=== PATIENT | male | born 1960 | race Caucasian/White ===

== ENCOUNTER 2023-09-21 12:08 | Emergency (ER) | payer OTHER ==
--- OUTSIDE RECORDS SUMMARY | 2023-09-21 12:11 | XMS REPORT | Continuity of Care Document ---
Author Name Unknown Address [address] [facility]. [address] [place] [address] [facility] thconnect Address [address] [facility] [address] [place] [address] Care Team Providers Care Hebrew Teacher Name Role Phone PCP, PATIENT DOES NOT HAVE A Primary Care Physic loida Unavailable LISA MARTINEZ Attending Clinician Unavailable Lisa Martinez NP Attending Clinician Doctor Unassigned, [place] Attending Clinician U Laurie Clark MD Attending Clinician [phone] LAURIE MANN Attending Clinician Unavailable LISA MARTINEZ Admitting Clinician Unavailable LAURIE MANN Admitting Clinician Unavailable Payers Payer Name Policy Type Policy Number Effective Date Expirati on Date Source [employer] [id number] 2022 00:00:00 Allergies, Adverse Reactions, Alerts Allergy Name Allergy Type Status Severity Reaction(s) Onset Date Inactive Date Treating Clinician Comments Source NO KNOWN ALLERGIE S Drug Class Active [facility] Social History Social Habit Start Date Stop Date Quantity Comments Source Gender identity [facility] Sexual orientation U [facility] Sex Assigned At 1960 00:00:00 1960 00:00:00 [facility] Smoking Status Start Date Stop Date Source Tobacco smoking consumption unknown [facility] Medications Ordered Medication Name Filled Medication Name Start Date Stop Date Current Medication? Ordering Clinician Indication Dosage Frequency Signature (SIG) Comments Components Source doxycycline hyclate 100 mg capsule 2023-0 9-30 00:00: 00 Yes [id number] 100mg Take 1 capsule by mouth in the morning and 1 capsule in the evening. [facility] ipratropium -albuteroL (DUONEB) 0.5 mg-3 mg(2.5 mg base)/3 mL nebulizer solution 3 mL 05-26 13:00: 00 Yes 3mL 3 mL, Inhalation , QID, First dose on Wed05/26/23 at 0800, Until Discontinu ed, Routine [facility] levoFLOXaci n (LEVAQUIN) tablet 750 mg 05-26 11:45: 00 05-26 10:49 :00 No 750mg 750 mg, Oral, ONCE NOW, 1 dose, On Wed05/26/23 at 0645, RUPERTO
Re ason for Anti-Infec tive: Documented Infection< br>Documen ange Infection Site: Respirator y
Durat ion of Therapy: Other (see Comments) [facility] iopamidol (ISOVUE 370-500 mL) injection 100 mL 05-26 11:00: 00 05-26 11:00 :00 No [id number] 100mL 100 mL, Intravenou s, ONCE, 1 dose, On Wed05/26/23 at 0600, Routine [facility] fluticasone propion-gurdeep meteroL (ADVAIR DISKUS) 250-50 mcg/dose inhalation disk 05-26 00:00: 00 Yes [id number] 1{puff} Inhale 1 Puff in the morning and 1 Puff in the evening. [facility] levoFLOXaci n (LEVAQUIN) 750 mg tablet 05-26 00:00: 00 Yes [id number] 750mg Take 1 tablet by mouth every 24 (twenty-fo ur) hours. [facility] fluticasone propion-gurdeep meteroL (ADVAIR DISKUS) 250-50 mcg/dose inhalation disk 05-26 00:00: 00 Yes [id number] 1{puff} Inhale 1 Puff in the morning and 1 Puff in the evening. [facility] fluticasone propion-gurdeep meteroL (ADVAIR DISKUS) 250-50 mcg/dose inhalation disk 05-26 00:00: 00 Yes [id number] 1{puff} Inhale 1 Puff in the morning and 1 Puff in the evening. [facility] levoFLOXaci n (LEVAQUIN) 750 mg tablet 05-26 00:00: 00 07-10 00:00 :00 No [id number] 750mg Take 1 tablet by mouth every 24 (twenty-fo ur) hours. [facility] levoFLOXaci n (LEVAQUIN) 750 mg tablet 05-26 00:00: 00 07-10 00:00 :00 No [id number] 750mg Take 1 tablet by mouth every 24 (twenty- ur) hours. [facility] albuterol 90 mcg/actuati on inhaler 05-21 00:00: 00 Yes INHALE 1 PUFF BY MOUTH FOUR TIMES A DAY NEEDED FOR BREATHING [facility] Vital Signs Vital Name Observation Time Observation Value Comments S ource Systolic blood pressure 2023-07-11 02:45:32 154 mm[Hg] [facility] Diastolic blood pressure 2023-07-11 02:45:32 87 mm[Hg] [facility] Heart rate 2023-07-11 02:45:32 66 /min [facility] Respiratory rate 2023-07-11 02:45:32 16 /min [facility] Oxygen saturation in Arterial blood by Pulse oximetry 2023-07-11 02:45:32 98 /min [facility] Body temperature 2023-07-11 00:34:00 36.72 Lawanda [facility] Body height 2023-07-11 00:34:00 180.3 cm [facility] Body weight 2023-07-11 00:34:00 87.544 kg [facility] BMI 2023-07-11 00:34:00 26.92 kg/m2 [facility] Systolic blood pressure 2023-05-26 10:00:00 130 mm[Hg] [facility] Diastolic blood pressure 2023-05-26 10:00:00 90 mm[Hg] [facility] Heart rate 2023-05-26 10:00:00 91 /min [facility] Respiratory rate 2023-05-26 10:00:00 23 /min [facility] Oxygen saturation in Arterial blood by Pulse oximetry 2023-05-26 10:00:00 94 /min [facility] Body temperature 2023-05-26 07:11:00 37.33 Lawanda [facility] Body height 2023-05-26 07:11:00 180.3 cm [facility] Body weight 2023-05-26 07:11:00 85.276 kg [facility] BMI 2023-05-26 07:11:00 26.22 kg/m2 [facility] Procedures Procedure Date / Time Performed Performing Clinicia n Source XR CHEST 1 VW 2023-07-11 01:11:47 Lisa Martinez [facility] ASSIGNMENT OF BENEFITS 2023-07-11 00:51:27 Docto r Unassigned, [place] [facility] CONSENT/REFUSAL FOR DIAGNOSIS AND TREATMENT 2023-07-11 00:23:57 Doctor Unassigned, [place] [facility] TROPONIN I 2023-05-26 07:42:00 Laurie Mann [facility] BASIC METABOLIC PANEL (NA, K, CL, CO2, GLUCOSE, BUN, CREATININE, CA) 2023-05-26 07:42:00 Laurie Mann [facility] D-DIMER 2023-05-26 07:42:00 Laurie Mann [facility] N-TERMINAL PRO-BNP 2023-05-26 07:42:00 Laurie Mann [facility] COVID-19 (ID NOW RAPID TESTING) 2023-05-26 07:42:00 Laurie Mann [facility] NOTICE OF PRIVACY PRACTICES 2023-05-26 07:11:11 Doctor Unassigned, [place] [facility] CONSENT/REFUSAL FOR DIAGNOSIS AND TREATMENT 2023-05-26 07:10:40 Doctor Unassigned, [place] [facility] Encounters Start Date/Time End Date/Time Encounter Type Admission Type Attending [facility] Care Facility Care Department Encounter ID Source 2023-07-10 19:36:00 2023-07-10 22:01:00 Emergency LISA SCHAEFER [facility] ERT [id number] [facility] 2023-07-10 19:36:00 2023-07-10 22:01:00 Emergency Lisa Martinez [facility] [id number] 4.2.7.2.686 [id number] [facility] 2023-07-10 00:00:00 2023-07-10 00:00:00 Orders Only Doctor Unassigned, [place] [facility] [id number] 350.1.13.10 4.2.7.2.686 [id number] [facility] 2023-05-26 02:14:00 2023-05-26 06:07:00 Emergency Laurie Mann [facility] 1.2.840.114 350.1.13.10 4.2.7.2.686 [id number] [facility] 2023-05-26 02:14:00 2023-05-26 06:07:00 Emergency X LAURIE MANN [facility] ERT [id number] [facility] Results Test Description Test Time Test Comments Results Result Co mments Source [facility] [id number] 08:30:03* Test Item Value Reference Range Interpretation Comme nts NT-proBNP (test code = 17377-7) <=125 Lab Interpretation (test cod e = 19190-9) Normal [facility] [id number] 08:17:34* Test Item Value Reference Range Interpretation Comme nts TROPONIN I (test code = 2574850428) 0.002 ng/mL <=0.034 CYRIL (test code = CYRIL) Reference (Normal) Range (defined by the 99th percentile reference limit): <= 0.034 ng/mL Note: Cardiac troponin begins to rise 3-4 hours after the onset of ischemia. Repeat in 4-6 hours if the sample was drawn within 3-4 hours of the onset of the symptom and found normal. Diagnosis of myocardial injury is made with acute changes in cTn concentrations with at least one serial sample above the 99th percentile upper reference limit (URL), taken together with the patient's clinical presentation. Biotin has been reported to cause a negative bias, interpret results relative to patient's use of biotin. Lab Interpretation (test code = 79897-1) Normal [facility][id number] 08:04:10* Test Item Value Reference Range Interpretation Comments D-DIMER (test code = 9006398329) 0.45 See_Comment H [Automated message] The system which generated this result transmitted reference range: <0.41 ?g/mL (FEU). The reference range was not used to interpret this result as normal/abnormal. CYRIL (test code = CYRIL) This test may be used in conjunction with a clinical pretest probability (PTP) assessment model to exclude venous thromboembolism (VTE) in patients suspected of deep venous thrombosis (DVT) and pulmonary embolism (PE) A D-Dimer value less than 0.50 ?g/ml (FEU) has a negative predicative value of 96 to 100% (95% CI)and 97 to 100% (95% CI) as an aid in the diagnosis of deep vein thrombosis (DVT) and pulmonary embolism when there is low or moderate pretest probability of PE or DVT. D-Dimer values are expressed in initial fibrinogen equivalent units (FEU)" The assay results should be used with other information, including the clinical context, in forming a diagnosis. Lab Interpretation (test code = 41648-6) Abnormal [facility] Notes Date/Time Note Provider Source 2023-05-26 06:06:02 [id number]:06:02F ormatting of this note might be different from the original.Pt given printed and verbal discharge instructions regarding left upper lobe pneumonia, sob, encouraged hydration,Prescriptions provided: Levaquin, Advair discDiscussed ibuprofen and to take with food to avoid GI distress.Discussed antibiotic therapy and to take until all completed unless adverse reaction occurs - if occurs, discontinue medication and follow up with pcp/seek medical attentionPt verbalized understanding of instructions, pt awake alert oriented, resp reg unlabored, skin w/d, color appropriate for race, moves all ext well,pt encouraged to follow up with pcp.Advised to seek medical attention for new/prolonged/worsening of symptoms,Symptoms improvedNo adverse reaction to meds given in ER noted upon dischargePIV d'cd, dressing to site, catheter in tact.Awake, alert oriented, resp reg unlabored, skin w/d, pt leaving amb with steady gait, in no apparent distress, [address]-8W[address] YsbjFR1501-58-11V57:07:15[facility] NoteTXT1.2.840.467624.1.13.104.2.7 .2.120180|[id number] for patient [id number] A. Campbell RN[address] [id number] 04PENVBVYDNFXCLCAPSMHZWC3527-80-96 T06:07:151.2.840.039771.1.72.3.15| 1.2.840.538110.1.13.104.2.7.2.7278 [id number] Erin Stephens RN [facility] 2023-05-26 03:53:55 0423-75-31X78:53:55F ormatting of this note might be different from the original.Notifed María [place] [address]-5Evumxlwbv[address] CgnqJO2761-32-34T95:54:23[facility] NoteTXT1.2.840.754637.1.13.104.2.7 .2.154521|[id number] for patient jjzg37346-4RcwxWZNANQOFVO[id number] 87URHLUXVSVRBYSXIHVQXLYA2065-65-75 T03:54:231.2.840.831918.1.72.3.15| 1.2.840.763663.1.13.104.2.7.2.7278 [id number] [facility] 2023-05-26 02:11:00 5267-73-80N03:11:00F ormatting of this note might be different from the original.Patient came in with complaints of wheezing and SOB since 3-4 days now. [facility] just given a breathing treatment. Patient said he had 3-4 puffs of his Albuterol inhaler VICE CHAIR but no relief. 40779-3Lcvntwoqc department Triage dfwnNA9264-47-57V93:23:22Emeprovidence [facility] department Triage noteTXT1.2.840.705191.1.13.104.2.7 .2.537903|[id number] for patient soen07159-7Ivbwqyrld department Note[address] Hk[id number] 46LLGIAXHGBBSLBNPAZKHVVZ7520-49-62 T02:23:221.2.840.710451.1.72.3.15| 1.2.840.206285.1.13.104.2.7.2.7278 [id number] [facility] 2023-05-26 02:10:00 7297-58-58D75:10:00F ormatting of this note is different from the original.[facility] Emergency Department NotePatient Name: Anthony Aranda of : 1960 62 year old maleTreatment Room: NV6/AZ4Enibuvg Record Number: [id number] Care Physician: PATIENT DOES NOT HAVE A PCPPatient Escorted by: Self [9]Mode of Arrival: Personal means [1]EMS Treatment Prior to ED Arrival:VICE CHAIR treatment: Other (comment) VICE CHAIR treatment comments: Albuteral 4 puffsTravel and Exposure Screening:SymptomsDoes patient have any of these symptoms?: (not recorded)Exposure ScreeningHas patient had contact with someone with a communicable disease in the last month?: (not recorded)Diseases exposed to:: (not recorded)Is Patient ?: (not recorded)Exposure Date: (not recorded)Chief Complaint:Chief Complaint Patient presents with WHEEZING Shortness of Breath History of Present Illness:Anthony Banuelos is a 62 year old male who presents to the ED for evaluation of URI symptoms X 5 days,Symptoms consist f cough wheezing SOB . No fever or chills. Cough is productive of light green phlegm. Pt smokes 1PPD. No sick contacts.Has myalgia and arthralgia. No prolonged immobilization. No calf pain/ Has used Albuterol inhaler. Home COVID test yesterday was negative. Pt was also seen at [facility] ago and was given an Albuterol inhalerHistory provided by: PatientLanguage mill tender used: No Shortness of BreathSeverity: ModerateOnset quality: GradualDuration: 5 daysTiming: SporadicChronicity: RecurrentContext: URI Context: not activity, not animal exposure, not emotional upset, not fumes, not known allergens, not occupational exposure, not pollens, not smoke exposure, not strong odors and not weather changes Relieved by: InhalerWorsened by: ActivityIneffective treatments: None triedAssociated symptoms: cough and wheezing Associated symptoms: no abdominal pain, no chest pain, no claudication, no diaphoresis, no ear pain, no fever and no headaches Risk factors: tobacco use Risk factors: no family hx of DVT, no hx of cancer, no hx of PE/DVT, no obesity, no prolonged immobilization and no recent surgery Past Medical History/Immunizations:Obstructive Sleep pneaAsthmaBronchitisLung nodules "three black spots" Tetanus received in last 5 years: Unknown Allergies:No Known AllergiesPast Social History:Substance & Sexual Activity No substance use or sexual activity history on file. Past Surgical History:No past surgical history on file.Review of Systems: Review of Systems Constitutional: Negative. Negative for diaphoresis and fever. HENT: Negative. Negative for ear pain. Eyes: Negative. Respiratory: Positive for cough, shortness of breath and wheezing. Breasts: Negative. Cardiovascular: Negative. Negative for chest pain and claudication. Gastrointestinal: Negative. Negative for abdominal pain. Genitourinary: Negative. Musculoskeletal: Negative. Skin: Negative. Neurological: Negative. Negative for headaches. Psychiatric/Behavioral: Negative. All other systems reviewed and are negative.Endocrine: Endocrine negativePhysical Exam: ED Triage Vitals [05/26/23 0211] Weight 85.3 kg (188 lb) Actual or estimated Estimated by patient/family report Height 1.803 m (5' 11") BP (!) 146/90 Pulse 106 Resp 16 Temp 37.3 ?C (99.2 ?F) Temp source Oral SpO2 96 % Measured on Room air Physical ExamVitals and nursing note reviewed. Constitutional: General: He is not in acute distress. Appearance: Normal appearance. He is well-developed and normal weight. He is not ill-appearing, toxic-appearing or diaphoretic. HENT: Head: Normocephalic and atraumatic. Nose: Nose normal. No congestion or rhinorrhea. Mouth/Throat: Mouth: Mucous membranes are moist. Pharynx: Oropharynx is clear. No posterior oropharyngeal erythema. Eyes: General: No scleral icterus. Right eye: No discharge. Left eye: No discharge. Extraocular Movements: Extraocular movements intact. Conjunctiva/sclera: Conjunctivae normal. Pupils: Pupils are equal, round, and reactive to light. Cardiovascular: Rate and Rhythm: Normal rate and regular rhythm. Pulses: Normal pulses. Heart sounds: Normal heart sounds. No murmur heard.Pulmonary: Effort: Pulmonary effort is normal. No respiratory distress. Breath sounds: Rhonchi present. No wheezing or rales. Chest: Chest wall: No tenderness. Abdominal: General: Bowel sounds are normal. There is no distension. Palpations: Abdomen is soft. Tenderness: There is no abdominal tenderness. There is no right CVA tenderness, left CVA tenderness, guarding or rebound. Musculoskeletal: General: No swelling, tenderness, deformity or signs of injury. Normal range of motion. Cervical back: Normal range of motion and neck supple. No rigidity or tenderness. Lymphadenopathy: Cervical: No cervical adenopathy. Skin: General: Skin is warm and dry. Capillary Refill: Capillary refill takes less than 2 seconds. Coloration: Skin is not jaundiced or pale. Findings: No bruising, erythema, lesion or rash. Neurological: General: No focal deficit present. Mental Status: He is alert and oriented to person, place, and time. Cranial Nerves: No cranial nerve deficit. Sensory: No sensory deficit. Motor: No weakness. Coordination: Coordination normal. Gait: Gait normal. Deep Tendon Reflexes: Reflexes normal. Psychiatric: Behavior: Behavior normal. Thought Content: Thought content normal. Judgment: Judgment normal. Radiology:CT CHEST PULMONARY ANGIOGRAM Preliminary Result PROCEDURE: CT CHEST WITH CONTRAST- CHEST PE PROTOCOL CLINICAL INDICATION: PE suspected, intermediate prob, positive D-dimer Comparison: None TECHNIQUE: Volumetric helical CT angiogram was performed of the chest (lung apices to bases) with IV contrast. Images were reconstructed at 1.25 mm slice thickness. Corresponding axial, sagittal and coronal MIP images were performed. FINDINGS: HEART AND GREAT VESSELS: The opacification of the pulmonary vasculature is appropriate. No filling defects are seen through the level of the segmental pulmonary arteries. The pulmonary trunk is normal in caliber. The thoracic aorta is normal in caliber with mild atherosclerotic calcifications. There are mild calcifications of the coronary vessels. The heart is normal in size. No pericardial abnormalities are identified. The RV to LV is normal. MEDIASTINUM AND LOWER NECK: No central airway lesions are detected. The esophagus is within normal limits. The included thyroid gland appears normal. LYMPH NODES: A mildly enlarged right lower paratracheal and right hilar lymph nodes measuring up to 1.5 cm, nonspecific but likely reactive. LUNGS AND PLEURA: The lungs are well-expanded. Dependent atelectasis. A left upper lobe rounded opacity is noted (12:80). Extreme but opacities of the right upper and bilateral lower lobes. Diffuse bronchial wall thickening is noted. No suspicious nodules. No pleural abnormality detected. VISUALIZED UPPER ABDOMEN: The included solid organs and hollow viscus appear within normal limits. OSSEOUS STRUCTURES AND SOFT TISSUES: No acute osseous lesions are detected. The soft tissues appear normal. IMPRESSION 1. No evidence of acute or chronic pulmonary embolism through the level of the subsegmental branches. AIDOC (computer aided detection software) confirms no filling defects in the pulmonary artery branches. 2. Bilateral mixed tree-in-bud opacities which may be due to infection or inflammation. Rounded left upper lobe opacity suspicious for pneumonia. Recommend repeat imaging in at least 6-8 weeks posttreatment to document resolution. 3. Diffuse bronchial wall thickening may be seen with bronchitis/bronchiolitis of infectious or inflammatory etiology. 4. Mild coronary atherosclerosis. Preliminary Report Dictated by Resident: Leandra Chan XR CHEST 1 VW Preliminary Result EXAM: XR CHEST 1 VW COMPARISON: None available. HISTORY: Wheezing, SOB FINDINGS: Lungs: The lung volumes are normal. No focal opacities. No pleural abnormalities are detected. Heart/Mediastinum: The cardiac silhouette appears normal accounting for technique. Aortic arch calcifications are noted. Bones and soft tissues: No acute osseous findings are detected. IMPRESSION No radiographic evidence of acute cardiopulmonary process. Preliminary Report Dictated by Resident: Leandra Chan Lab Results:Lab Results D-DIMER - Abnormal Result Value Ref Range D-DIMER 0.45 (*) <0.41 ?g/mL (FEU) BASIC METABOLIC PANEL (NA, K, CL, CO2, GLUCOSE, BUN, CREATININE, CA) - Abnormal NA 137 135 - 145 mmol/L K 4.0 3.5 - 5.0 mmol/L CL 102 98 - 108 mmol/L CO2 TOTAL 26 23 - 31 mmol/L AGAP 9 2 - 16 BUN 19 7 - 23 mg/dL GLUCOSE 143 (*) 70 - 110 mg/dL CREATININE 0.87 0.60 - 1.25 mg/dL CALCIUM 9.3 8.6 - 10.6 mg/dL eGFR 89.5 mL/min/1.73m2 COVID-19 (ID NOW RAPID TESTING) - Normal SARS-CoV-2 Rapid ID NOW Not Detected Not Detected TROPONIN I - Normal TROPONIN I 0.002 <=0.034 ng/mL N-TERMINAL PRO-BNP - Normal NT-proBNP <20 <=125 pg/mL Orders and Treatments:Orders Placed This Encounter Procedures XR CHEST [address] CHEST PULMONARY ANGIOGRAM D-DIMER COVID-19 (ID NOW TESTING) TROPONIN I N-TERMINAL PRO-BNP LAB ONLY COVID INTERPRETATION BASIC METABOLIC PANEL (NA, K, CL, CO2, GLUCOSE, BUN, CREATININE, CA) Orders Placed This Encounter Medications ipratropium-albuteroL (DUONEB) 0.5 mg-3 mg(2.5 mg base)/3 mL nebulizer solution 3 mL iopamidol (ISOVUE 370-500 mL) injection 100 mL levoFLOXacin (LEVAQUIN) tablet 750 mg fluticasone propion-salmeteroL (ADVAIR DISKUS) 250-50 mcg/dose inhalation disk levoFLOXacin (LEVAQUIN) 750 mg tablet First Provider Eval:ED Events Date/Time Event User Comments 05/26/23225 Medical Screening Begins LAURIE MANN MD -- 05/26/23225 First Provider Evaluation LAURIE MANN MD -- No notes of EC Admission Criteria type on file.ED COURSEDiagnosis/Impression as of 05/26/23550 SOB (shortness of breath) Pneumonia of left upper lobe due to infectious organism Procedures: ProceduresMDM:Medical Decision MakingAnthony Banuelos is a 62 year old male who presents to the ED with SOB, coughProblems Addressed:Pneumonia of left upper lobe due to infectious organism: acute illness or injury Details: Will initiate Abx treatmentCounseled pt to follow-up post abx for further evaluation to document resolution of pneumoniaSOB (shortness of breath): chronic illness or injuryAmount and/or Complexity of Data ReviewedLabs: ordered. Decision-making details documented in ED Course.Radiology: ordered. Decision-making details documented in ED Course.RiskOTC drugs.Prescription drug management. Flowsheet Documentation: Scoring Tools: No data recorded Disposition/Condition:ED Disposition ED Disposition Disch - Home Condition Stable Comment -- Discharge Medications:Patient's Medications START taking these medications FLUTICASONE PROPION-SALMETEROL (ADVAIR DISKUS) 250-50 MCG/DOSE INHALATION DISK Inhale 1 Puff in the morning and 1 Puff in the evening. LEVOFLOXACIN (LEVAQUIN) 750 MG TABLET Take 1 tablet by mouth every 24 (twenty-four) hours. CONTINUE taking these medications which have NOT CHANGED No medications on file START taking Modified Medications as Prescribed No medications on file STOP taking these medications No medications on file Follow-up:Electronically signed by: Laurie Mann MD05/26/23 0551 95093-0Qnmylgzol Emergency department KormIE3608-04-32I94:51:23Physician Emergency department NoteTXT1.2.840.240526.1.13.104.2.7 .2.971694|[id number] for patient mdeu64317-1Lfowzccdj department NoteLNUT[address] Fb[id number] 84JZQXVCMSTYXTAJXIHJPFHI7996-18-52 T05:51:231.2.840.389668.1.72.3.15| 1.2.840.697926.1.13.104.2.7.2.7278 [id number] [facility]
[2023-09-21 12:36] LABS: Absolute Lymphocytes (CBC) 1.3 K/uL (0.7-4.9); Hematocrit 42.7 % (39.6-49.0); Lymphocytes % 21.1 % (15.3-44.8); MPV 7.6 fL (7.6-11.3); Platelets 299 thou/uL (152-406); RBC Red Blood Cell Count 4.74 M/uL (4.33-5.43)
[2023-09-21 12:45] LABS: Protime INR 1.12
[2023-09-21] MEDS ORDERED: METHYLPREDNISOLONE 125 MG INJ ONE (12:50)
[2023-09-21] MEDS ORDERED: LEVALBUTEROL 1.25 MG/3 ML NEB ONE ×2 (12:51→14:33)
[2023-09-21 12:59] LABS: SARS-CoV-2 Antigen Rapid Res Negative (Negative)
[2023-09-21 13:00] LABS: Albumin 3.7 g/dL (3.4-5.0); Bilirubin Direct 0.3 mg/dL (0-0.2); Bilirubin Indirect, Calculated 0.8 mg/dL (0.2-0.8); Bilirubin Total 1.1 mg/dL (0.2-1.0); Magnesium 2.1 mg/dL (1.6-2.4); Potassium 4.1 mEq/L (3.5-5.1); Protein, Total 7.6 g/dL (6.4-8.2); Troponin High Sensitivity 6.3 pg/mL (<58.9)
--- NOTE | 2023-09-21 13:16 | RAD REPORT ---
EXAM DESCRIPTION: [facility]ad[facility] Single View09/21/2023 1:01 pm CLINICAL HISTORY: DYSPNEA COMPARISON: CHEST PA AND LAT 2 VIEW dated 06/20/2013 TECHNIQUE: Portable AP view of the chest. FINDINGS: The lungs are clear. No pneumothorax or effusion. The cardiomediastinal contours are unre markable. IMPRESSION: No acute cardiopulmonary process.
--- NOTE | 2023-09-21 14:01 | RAD REPORT ---
EXAM DESCRIPTION: CT - Chest For Pe Angio - 09/21/2023 1:16 pm CLINICAL HISTORY: DYSPNEA COMPARISON: Chest Single View dated 09/21/2023 TECHNIQUE: Thin axial CT images of the chest were obtained following administration of 100 mL Isovue 370 IV contrast. Multiplanar reconstructions, and maximum intensity projection reconstructions were generated and reviewed. Exam utilizes a protocol for optimal evaluation of pulmonary arterial tree. All CT scans are performed using dose optimization technique as appropriate and may include automated exposure control or mA/KV adjustment according to patient size. FINDINGS: Bilateral thyroid nodules, largest at the right lower pole measuring 2.4 cm containing a f ocus of calcification. Pulmonary arteries are normal. No emboli or other suspicious finding. No acute or significant aorta f indings. No mass or infiltrate in the lung parenchyma. Mild bronchial wall prominence centrally. No pleural th ickening or pleural effusion. No pneumothorax. No abnormal mediastinal or hilar masses or lymphadenopathy seen. No chest wall mass or abnormal axill iary lymphadenopathy. IMPRESSION: No evidence of acute central pulmonary emboli. Mild bilateral central bronchial wall prominence, suggestive of infectious/inflammatory bronchitis. Incidentally noted bilateral thyroid nodules. These can be further evaluated on targeted thyroid ultr asound on an outpatient basis.
--- NOTE | 2023-09-21 14:20 | ER ---
Nurse's Notes [facility] – [place], [place] Name: Himanshu Banuelos Age: 63 yrs Sex: Male : 1960 Arrival Date: 09/21/2023 Time: 12:08 Bed 2 Private MD: Diagnosis: Unspecified asthma with (acute) exacerbation;Pneumonia, unspecified organism Presentation: 09/21 12:17 Chief complaint: Patient states: shortness of breath onset 3-4 months ago that got cm10 worse 4 days ago. Pt denies any fevers. Coronavirus screen: Vaccine status: Patient reports being unvaccinated. Client denies travel out of the [place] in the last 14 days. Ebola Screen: Patient denies travel to an Ebola-affected area in the 21 days before illness onset. No symptoms or risks identified at this time. Initial Sepsis Screen: Does the patient meet any 2 criteria? RR > 20 per min. Does the patient have a suspected source of infection? No. Patient's initial sepsis screen is negative. Risk Assessment: Do you want to hurt yourself or someone else? Patient reports no desire to harm self or others. Onset of symptoms was September 21, 2023. 12:17 Method Of Arrival: Ambulatory cm10 12:17 Acuity: JOSE DE JESUS 2 cm10 Triage Assessment: 12:19 General: Appears in no apparent distress. uncomfortable, Behavior is calm, cooperative. cm10 Pain: Complains of pain in chest. Respiratory: Reports shortness of breath on exertion since 4 days Airway is patent Respiratory effort is labored, Onset: The symptoms/episode began/occurred gradually, the patient has moderate shortness of breath. Historical: - Allergies: 12:18 No Known Allergies; cm10 - PMHx: 12:18 Asthma; cm10 - Immunization history:: Adult Immunizations unknown. - Social history:: Smoking status: Patient/guardian denies using tobacco, Stopped _ months ago 4. - Family history:: not pertinent. - Hospitalizations: : No recent hospitalization is reported. Screenin:10 [facility] ED Fall Risk Assessment (Adult) History of falling in the last 3 months, rs5 including since admission No falls in past 3 months (0 pts) Confusion or Disorientation No (0 pts) Intoxicated or Sedated No (0 pts) Impaired Gait No (0 pts) Mobility Assist Device Used No (0 pt) Altered Elimination No (0 pt) Score/Fall Risk Level 0 - 2 = Low Risk Oriented to surroundings, Maintained a safe environment. 12:10 Abuse screen: Denies threats or abuse. Nutritional screening: No deficits noted. rs5 Tuberculosis screening: No symptoms or risk factors identified. Assessment: 12:27 General: Appears in no apparent distress. comfortable, Behavior is calm, cooperative, ld1 appropriate for age. Pain: Denies pain. Neuro: Level of Consciousness is awake, alert, obeys commands, Oriented to person, place, time, situation. Cardiovascular: Reports shortness of breath, Capillary refill < 3 seconds Patient's skin is warm and dry. Rhythm is sinus rhythm. Respiratory: Reports shortness of breath Airway is patent Respiratory effort is even, labored, GI: Abdomen is flat, non-distended. : No signs and/or symptoms were reported regarding the genitourinary system. EENT: No signs and/or symptoms were reported regarding the EENT system. Derm: No signs and/or symptoms reported regarding the dermatologic system. Musculoskeletal: No signs and/or symptoms reported regarding the musculoskeletal system. 13:20 Reassessment: Patient and/or family updated on plan of care and expected duration. Pain rs5 level reassessed. Patient is alert, oriented x 3, equal unlabored respirations, skin warm/dry/pink. 14:41 Reassessment: No changes from previously documented assessment. rs5 Vital Signs: 12:17 BP 138 / 77; Pulse 73; Resp 24; Temp 98.2; Pulse Ox 96% on R/A; Weight 86.18 kg; Height cm10 5 ft. 11 in. ; Pain 8/10; 12:27 BP 138 / 77; Pulse 74; Resp 19; Pulse Ox 96% on R/A; ld1 13:56 BP 139 / 87; Pulse 69; Resp 14; Pulse Ox 93% on R/A; ld1 12:17 Body Mass Index 26.50 (86.18 kg, 180.34 cm) cm10 12:17 Pain Scale: Adult cm10 ED Course: 12:09 Patient arrived in ED. rg4 12:09 Adenike Murry, RN is Primary Nurse. ld1 12:10 Patient has correct armband on for positive identification. Placed in gown. Bed in low rs5 position. Call light in reach. Side rails up X2. 12:13 Louie Zepeda MD is Attending Physician. rn 12:18 Triage completed. cm10 12:19 Arm band placed on Patient placed in an exam room, on a stretcher, on monitoring analyst, cm10 on pulse oximetry. 12:27 environmental monitoring specialist on. Pulse ox on. NIBP on. Door closed. Noise minimized. Warm blanket ld1 given. 12:27 SARS RAPID Sent. ld1 12:27 Flu Sent. ld1 12:27 BMP Sent. ld1 12:27 Blood Culture Adult (2) Sent. ld1 12:27 CBC with Diff Sent. ld1 12:27 Hepatic Function Sent. ld1 12:27 Magnesium Sent. ld1 12:27 NT PRO-BNP Sent. ld1 12:27 PT-INR Sent. ld1 12:27 Ptt, Activated Sent. ld1 12:27 Troponin HS Sent. ld1 12:27 Inserted saline lock: 20 gauge in right forearm, using aseptic technique. Blood ld1 collected. 12:27 No provider procedures requiring assistance completed. ld1 13:03 XRAY CXR (1 view) In Process Unspecified. EDMS 13:17 CT Chest For PE Angio In Process Unspecified. EDMS 14:45 IV discontinued, intact, bleeding controlled, No redness/swelling at site. ld1 Administered Medications: 12:39 Drug: MethylPrednisoLONE IVP 125 mg IVP once Route: IVP; Site: left forearm; ld1 13:00 Follow up: Response: No adverse reaction rs5 12:39 Drug: Levalbuterol Inhalation 1.25 mg Inhalation once Route: Inhalation; ld1 13:00 Follow up: Response: No adverse reaction rs5 14:28 Drug: Levalbuterol Inhalation 1.25 mg Inhalation once Route: Inhalation; ld1 14:28 Drug: LevOfloxacin PO 500 mg PO once Route: PO; ld1 Medication: 14:45 VIS not applicable for this client. ld1 Outcome: 14:19 Discharge ordered by . rn 14:45 Discharged to home ambulatory, ld1 14:45 Condition: stable 14:45 Discharge instructions given to patient, Instructed on discharge instructions, follow up and referral plans. medication usage, Demonstrated understanding of instructions, follow-up care, medications, Prescriptions given X 3, 14:45 Patient left the ED. ld1 Signatures: Dispatcher [employer] EDMS Louie Zepeda MD MD rn Anival, Amelie rg4 Adenike Murry, RN RN ld1 Spencer Guajardo, RN RN rs5 Chiqui Ford, RN RN cm10
--- NOTE | 2023-09-21 14:20 | EDPHYS ---
Physician Documentation [facility] Name: Himanshu Banuelos Age: 63 yrs Sex: Male : 1960 Arrival Date: 09/21/2023 Time: 12:08 Bed 2 Private MD: ED Physician Louie Zepeda HPI: 09/21 12:37 This 63 yrs old Male presents to ER via Ambulatory with complaints of Breathing rn Difficulty. 12:37 The patient has shortness of breath at rest, with light activity. Onset: The rn symptoms/episode began/occurred 1 week(s) ago. Duration: The symptoms are intermittent. The patient's shortness of breath is aggravated by coughing, exertion, light activity, is alleviated by inhaler, nebulizer treatment. Associated signs and symptoms: Pertinent positives: non-productive cough, Pertinent negatives: chest pain, fever, hemoptysis. Severity of symptoms: At their worst the symptoms were moderate in the emergency department the symptoms are unchanged. The patient has experienced similar episodes in the past. The patient has not recently seen a physician. Patient reports shortness of breath for a few months but worse over the last week. Reports cough that is worsened with nebulizer treatment. Reports history of asthma but also active smoker. No diagnosis of COPD. No diagnosis of CAD or CHF. No fever. No history of DVT or PE.. Historical: - Allergies: 12:18 No Known Allergies; cm10 - PMHx: 12:18 Asthma; cm10 - Immunization history:: Adult Immunizations unknown. - Social history:: Smoking status: Patient/guardian denies using tobacco, Stopped _ months ago 4. - Family history:: not pertinent. - Hospitalizations: : No recent hospitalization is reported. ROS: 12:37 Constitutional: Negative for fever, chills, and weight loss, Eyes: Negative for injury, rn pain, redness, and discharge, Cardiovascular: Negative for chest pain, palpitations, and edema, Respiratory: Positive for shortness of breath and cough Abdomen/GI: Negative for abdominal pain, nausea, vomiting, diarrhea, and constipation, MS/Extremity: Negative for injury and deformity, Skin: Negative for injury, rash, and discoloration, Neuro: Negative for headache, weakness, numbness, tingling, and seizure, Exam: 12:35 ECG was reviewed by the Attending Physician. rn 12:37 Constitutional: This is a well developed, well nourished patient who is awake, alert, rn and in no acute distress. Head/Face: Normocephalic, atraumatic. ENT: No stridor Cardiovascular: Regular rate and rhythm. No pulse deficits. Respiratory: Mild tachypnea, bilateral expiratory wheezing. No retractions MS/ Extremity: Pulses equal, no cyanosis. Neurovascular intact. Full, normal range of motion. Equal circumference. Neuro: Awake and alert, GCS 15 Vital Signs: 12:17 BP 138 / 77; Pulse 73; Resp 24; Temp 98.2; Pulse Ox 96% on R/A; Weight 86.18 kg; Height cm10 5 ft. 11 in. ; Pain 8/10; 12:27 BP 138 / 77; Pulse 74; Resp 19; Pulse Ox 96% on R/A; ld1 13:56 BP 139 / 87; Pulse 69; Resp 14; Pulse Ox 93% on R/A; ld1 12:17 Body Mass Index 26.50 (86.18 kg, 180.34 cm) cm10 12:17 Pain Scale: Adult cm10 MDM: 12:13 Patient medically screened. rn 14:18 Differential diagnosis: Anemia asthma, Bronchitis CHF exacerbation, Chronic Obstructive rn Pulmonary Disease Myocardial Infarction pneumonia, Pneumothorax pulmonary edema, Pulmonary Embolism. Data reviewed: vital signs, nurses notes, lab test result(s), EKG, radiologic studies, CT scan, plain films, and as a result, I will discharge patient. Independent interpretation of the following test(s) in the Emergency Department X-Ray: My interpretation is Chest x-ray images negative for pneumothorax per my interpretation. Counseling: I had a detailed discussion with the patient and/or guardian regarding the historical points, exam findings, and any diagnostic results supporting the discharge/admit diagnosis, lab results, radiology results, the need for outpatient follow up, to return to the emergency department if symptoms worsen or persist or if there are any questions or concerns that arise at home. Response to treatment: the patient's symptoms have mildly improved after treatment, and as a result, I will discharge patient. Special discussion: I discussed with the patient/guardian in detail that at this point there is no indication for admission to the hospital. It is understood, however, that if the symptoms persist or worsen the patient needs to return immediately for re-evaluation. Based on the history and exam findings, there is no indication for further emergent testing or inpatient evaluation. I discussed with the patient/guardian the need to see the primary care provider for further evaluation of the symptoms. I discussed with the patient/guardian the need to see the termite control representative for further evaluation of the symptoms. ED course: Patient improved, feels better, no oxygen requirement, patient with history of asthma and active smoker, possible bronchitis or early infection on imaging. Negative for PE. Troponin negative. Will DC home with steroids, nebulizer treatments, antibiotics. I have personally reviewed all of the results, including but not limited to blood tests and imaging deemed necessary to safely discharge this patient at this time. All results given to and printed out for patient. I personally went over all the results with the patient and answered all questions. Patient will follow-up with PCP and or specialist as discussed. Return precautions given and understood.. 09/21 12:17 Order name: BMP; Complete Time: 14:03 rn 09/21 12:17 Order name: Blood Culture Adult (2) rn 09/21 12:17 Order name: CBC with Diff rn 09/21 12:17 Order name: Hepatic Function; Complete Time: 14:03 rn 09/21 12:17 Order name: Magnesium; Complete Time: 14:03 rn 09/21 12:17 Order name: NT PRO-BNP; Complete Time: 14:03 rn 09/21 12:17 Order name: PT-INR; Complete Time: 14:03 rn 09/21 12:17 Order name: Ptt, Activated; Complete Time: 14:03 rn 09/21 12:17 Order name: Troponin HS; Complete Time: 14:03 rn 09/21 12:17 Order name: Flu; Complete Time: 14:03 rn 12 12:17 Order name: SARS RAPID; Complete Time: 14:03 rn 09/21 12:25 Order name: Lactate w/ 2H reflex if indic.; Complete Time: 14:03 rs5 09/21 12:43 Order name: CBC Smear Scan EDMS 09/21 12:17 Order name: CT Chest For PE Angio; Complete Time: 14:03 rn 09/21 12:17 Order name: XRAY CXR (1 view); Complete Time: 14:03 rn 09/21 12:17 Order name: EKG; Complete Time: 12:18 rn 09/21 12:17 Order name: Cardiac monitoring; Complete Time: 12: rn 09/21 12: Order name: EKG - Nurse/Tech; Complete Time: rn 09/21 12: Order name: IV Saline Lock; Complete Time: : rn 09/21 12: Order name: Labs collected and sent; Complete Time: rn 09/21 12: Order name: O2 Per Protocol; Complete Time: rn 09/21 12: Order name: O2 Sat Monitoring; Complete Time: : rn EC:35 Rate is 74 beats/min. Rhythm is regular. QRS [place] is Normal. [place] interval is normal. QRS rn interval is normal. QT interval is normal. No Q waves. T waves are Normal. No ST changes noted. Clinical impression: Normal ECG. Interpreted by me. Reviewed by me. Administered Medications: 12:39 Drug: MethylPrednisoLONE IVP 125 mg IVP once Route: IVP; Site: left forearm; ld1 13:00 Follow up: Response: No adverse reaction rs5 12:39 Drug: Levalbuterol Inhalation 1.25 mg Inhalation once Route: Inhalation; ld1 13:00 Follow up: Response: No adverse reaction rs5 14:28 Drug: Levalbuterol Inhalation 1.25 mg Inhalation once Route: Inhalation; ld1 14:28 Drug: LevOfloxacin PO 500 mg PO once Route: PO; ld1 Disposition Summary: 09/21/23 14:19 Discharge Ordered Notes: Location: Home rn Problem: new rn Symptoms: have improved rn Condition: Stable rn Diagnosis - Unspecified asthma with (acute) exacerbation rn - Pneumonia, unspecified organism rn Followup: rn - With: Private Physician - When: As needed - Reason: Recheck today's complaints, Re-evaluation by your physician Discharge Instructions: - Discharge Summary Sheet rn - Asthma, Adult rn - Community-Acquired Pneumonia, Adult rn Forms: - Medication Reconciliation Form rn - Thank You Letter rn - Antibiotic patternator - Prescription Opioid Use rn - Patient Portal Instructions rn - Leadership Thank You Letter rn Prescriptions: - albuterol sulfate 2.5 mg /3 mL (0.083 %) Inhalation Solution for Nebulization - nebulize 3 milliliter INHALATION route every 4 to 6 hours As needed as needed rn for bronchospasm; 1 Pack; Refills: 0, Product Selection Permitted - Prednisone 20 mg Oral Tablet - take 3 tablets ORAL route once daily for 5 days; 15 tablet; Refills: 0, Product rn Selection Permitted - levofloxacin 500 mg Oral tablet - take 1 tablet ORAL route once daily for 7 days; 7 tablet; Refills: 0, Product rn Selection Permitted Signatures: Dispatcher [employer] Louie Horowitz MD MD rn MurryAdenike RN RN ld1 Chiqui Ford RN RN cm10 Spencer Guajardo RN rs5
[2023-09-21] MEDS ORDERED: levoFLOXacin 250 MG TAB ONE (14:33)
[2023-09-21 15:18] VITALS: TEMP 98.2
[2023-09-21 15:20] VITALS: BP 139/87; O2SAT 93
[2023-09-21 17:48] LABS: Blood Morphology Comment NOT SEEN (NOT SEEN); Platelet Estimate ADEQ; White Blood Cell Scan OK (OK)
--- NOTE | 2023-09-22 13:06 | EKG ---
Test Date: 2023-09-21 Test Time: 12:19:01 Acquisition Analyst: APPLE MEASUREMENT RESULTS: Intervals: Rate: 74 HI: 148 QRSD: 92 QT: 378 QTc: 419 [place]: P: 77 HI: 148 QRS: 50 T: 64 INTERPRETIVE STATEMENTS: Normal sinus rhythm Normal ECG Compared to ECG 01/12/2017 20:20:58 No significant changes Electronically Signed On 09-22-23 13:04:06 GAS COMPRESSOR OPERATOR by Dakota Sheffield
== END 2023-09-21 14:45 | disposition home or self-care (01) ==
LOC: ER 12:08
DX: J45.901 Unspecified asthma with (acute) exacerbation (principal); J18.9 Pneumonia, unspecified organism; Z11.52 Encounter for screening for COVID-19
CPT/HCPCS: 93005; 87040 ×2; 85025; 80048; 36415; 83735; 85610; 80076; 83605; 85730; 84484; 83880; 87804 ×2; 71275; 71045; 96374; 99285; 87811; Q9967; J7614 ×2; J2930

== ENCOUNTER 2023-11-08 03:07 | Observation (INO) | payer OTHER ==
--- OUTSIDE RECORDS SUMMARY | 2023-11-08 03:10 | XMS REPORT | Continuity of Care Document ---
Author Name Unknown Address [address] [facility] [place] [address] [facility] thconnect Address [address] [facility] [address] [place] [address] Care Team Providers Care Commercial Center Manager Name Role Phone PCP, PATIENT DOES NOT HAVE A Primary Care Physic loida Unavailable LISA MARTINEZ Attending Clinician Unavailable Lisa Martinez NP Attending Clinician [phone] Doctor Unassigned, [place] Attending Clinician U navailable CROW MANN Attending Clinician Unavailable Crow Mann MD Attending Clinician [phone] LISA MARTINEZ Admitting Clinician Unavailable CROW MANN Admitting Clinician Unavailable Payers Payer Name Policy Type Policy Number Effective Date Expirati on Date Source [employer] [id number] 2022 00:00:00 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 [id number] 2016 00:00:00 2023 00:00:00 Allergies, Adverse Reactions, Alerts Allergy Name Allergy Type Status Severity Reaction(s) Onset Date Inactive Date Treating Clinician Comments Source NO KNOWN ALLERGIE S Drug Class Active [facility] Social History Social Habit Start Date Stop Date Quantity Comments Source Gender identity [facility] 1960 00:00:00 1960 00:00:00 [facility] Smoking Status Start Date Stop Date Source Tobacco smoking consumption unknown [facility] Medications Ordered Medication Name Filled Medication Name Start Date Stop Date Current Medication? Ordering Clinician Indication Dosage Frequency Signature (SIG) Comments Components Source doxycycline hyclate 100 mg capsule 07-10 00:00: 00 Yes [id number] 100mg Take 1 capsule by mouth in the morning and 1 capsule in the evening. [facility] ipratropium -albuteroL (DUONEB) 0.5 mg-3 mg(2.5 mg base)/3 mL nebulizer solution 3 mL 05-26 13:00: 00 Yes 3mL 3 mL, Inhalation , QID, First dose on Wed05/26/23 at 0800, Until Discontinu ed, Routine [facility] levoFLOXaci n (LEVAQUIN) tablet 750 mg 05-26 11:45: 00 05-26 10:49 :00 No 750mg 750 mg, Oral, ONCE NOW, 1 dose, On Wed05/26/23 at 0645, RUPERTO
Re ason for Anti-Infec tive: Documented Infection< br>Documen ange Infection Site: Respirator y
Durat ion of Therapy: Other (see Comments) [facility] iopamidol (ISOVUE 370-500 mL) injection 100 mL 05-26 11:00: 00 05-26 11:00 :00 No [id number] 100mL 100 mL, Intravenou s, ONCE, 1 dose, On Wed05/26/23 at 0600, Routine [facility] fluticasone propion-gurdeep meteroL (ADVAIR DISKUS) 250-50 mcg/dose inhalation disk 05-26 00:00: 00 Yes [id number] 1{puff} Inhale 1 Puff in the morning and 1 Puff in the evening. [facility] levoFLOXaci n (LEVAQUIN) 750 mg tablet 05-26 00:00: 00 Yes [id number] 750mg Take 1 tablet by mouth every 24 (twenty-fo ur) hours. [facility] fluticasone propion-gurdeep meteroL (ADVAIR DISKUS) 250-50 mcg/dose inhalation disk 05-26 00:00: 00 Yes [id number] 1{puff} Inhale 1 Puff in the morning and 1 Puff in the evening. [facility] fluticasone propion-gurdeep meteroL (ADVAIR DISKUS) 250-50 mcg/dose inhalation disk 05-26 00:00: 00 Yes [id number] 1{puff} Inhale 1 Puff in the morning and 1 Puff in the evening. [facility] levoFLOXaci n (LEVAQUIN) 750 mg tablet 05-26 00:00: 00 07-10 00:00 :00 No [id number] 750mg Take 1 tablet by mouth every 24 (twenty-fo ur) hours. [facility] levoFLOXaci n (LEVAQUIN) 750 mg tablet 05-26 00:00: 00 07-10 00:00 :00 No [id number] 750mg Take 1 tablet by mouth every 24 (twenty-fo ur) hours. [facility] albuterol 90 mcg/actuati on inhaler 05-21 00:00: 00 Yes INHALE 1 PUFF BY MOUTH FOUR TIMES A DAY NEEDED FOR BREATHING [facility] Vital Signs Vital Name Observation Time Observation Value Comments S héctorce Systolic blood pressure 2023-07-11 02:45:32 154 mm[Hg] [facility] Diastolic blood pressure 2023-07-11 02:45:32 87 mm[Hg] [facility] Heart rate 2023-07-11 02:45:32 66 /min [facility] Respiratory rate 2023-07-11 02:45:32 16 /min [facility] Oxygen saturation in Arterial blood by Pulse oximetry 2023-07-11 02:45:32 98 /min [facility] Body temperature 2023-07-11 00:34:00 36.72 Lawanda [facility] Body height 2023-07-11 00:34:00 180.3 cm [facility] Body weight 2023-07-11 00:34:00 87.544 kg [facility] BMI 2023-07-11 00:34:00 26.92 kg/m2 [facility] Systolic blood pressure 2023-05-26 10:00:00 130 mm[Hg] [facility] Diastolic blood pressure 2023-05-26 10:00:00 90 mm[Hg] [facility] Heart rate 2023-05-26 10:00:00 91 /min [facility] Respiratory rate 2023-05-26 10:00:00 23 /min [facility] Oxygen saturation in Arterial blood by Pulse oximetry 2023-05-26 10:00:00 94 /min [facility] Body temperature 2023-05-26 07:11:00 37.33 Lawanda [facility] Body height 2023-05-26 07:11:00 180.3 cm [facility] Body weight 2023-05-26 07:11:00 85.276 kg [facility] BMI 2023-05-26 07:11:00 26.22 kg/m2 [facility] Procedures Procedure Date / Time Performed Performing Clinicia n Source XR CHEST 1 VW 2023-07-11 01:11:47 Lisa Martinez [facility] ASSIGNMENT OF BENEFITS 2023-07-11 00:51:27 Docto r Unassigned, [place] [facility] CONSENT/REFUSAL FOR DIAGNOSIS AND TREATMENT 2023-07-11 00:23:57 Doctor Unassigned, [place] [facility] TROPONIN I 2023-05-26 07:42:00 Crow Mann [facility] BASIC METABOLIC PANEL (NA, K, CL, CO2, GLUCOSE, BUN, CREATININE, CA) 2023-05-26 07:42:00 Crow Mann [facility] D-DIMER 2023-05-26 07:42:00 Crow Mann [facility] N-TERMINAL PRO-BNP 2023-05-26 07:42:00 Crow Mann [facility] COVID-19 (ID NOW RAPID TESTING) 2023-05-26 07:42:00 Crow Mann [facility] NOTICE OF PRIVACY PRACTICES 2023-05-26 07:11:11 Doctor Unassigned, [place] [facility] CONSENT/REFUSAL FOR DIAGNOSIS AND TREATMENT 2023-05-26 07:10:40 Doctor Unassigned, [place] [facility] Encounters Start Date/Time End Date/Time Encounter Type Admission Type Attending [facility] Facility Care Department Encounter ID Source 2023-11-01 10:59:22 2023-11-01 10:59:22 Outpatient [facility] [id number] Mick Cardozo 2023-07-10 19:36:00 2023-07-10 22:01:00 Emergency X LISA MARTINEZ [facility] ERT [id number] [facility] 2023-07-10 19:36:00 2023-07-10 22:01:00 Emergency Lisa Martinez [facility] [id number] 350.1.13.10 4.2.7.2.686 [id number] [facility] 2023-07-10 00:00:00 2023-07-10 00:00:00 Orders Only Doctor Unassigned, [place] [facility] 1.2840.114 350.1.13.10 4.2.7.2.686 [id number] [facility] 2023-05-26 02:14:00 2023-05-26 06:07:00 Emergency X CROW MANN [facility] ERT [id number] [facility] 2023-05-26 02:14:00 2023-05-26 06:07:00 Emergency Crow Mann [facility] [id number] 350.1.13.10 4.2.7.2.686 [id number] [facility] Results Test Description Test Time Test Comments Results Result Co mments Source HIV 1/2 4TH GEN, RFLX [id number] 03:41:40* Test Item Value Reference Range Interpretation Comme nts HIV 1/2 4TH GEN, RFLX CONF (test code = 3514) NON-REACTIVE NON-REACTIVE UNLESS OTHERWISE INDICATED, ALL TESTING PERFORMED AT [facility] [address] [place] [address] FINE HAIRER: OLESYA HALLMAN M.D. [place] NUMBER [id number] [facility] [place]. [id number] RPR REFLEX TO T. PALLIDUM - [id number] 03:39:24* Test Item Value Reference Range Interpretation Comme nts RPR (test code = 73962) NON-REACTIVE NON-REACTIVE RPR TITER (test code = 3500) NOT INDIC. TITER NOT INDIC. BASIC METABOLIC PANEL (NA, K, CL, CO2, GLUCOSE, BUN, CREATININE, CA)2023-05-26 09:46:43* Test Item Value Reference Range Interpretation Comme nts NA (test code = 0451575127) 137 mmol/L 135-145 K (test code = 4688992279) 4.0 mmol/L 3.5-5.0 CL (test code = 3110701462) 102 mmol/L 98-108 CO2 TOTAL (test code = 3833224006) 26 mmol/L 23-31 AGAP (test code = 0862202279) 9 2-16 BUN (test code = 9338319053) 19 mg/dL 7-23 GLUCOSE (test code = 0741279299) 143 mg/dL 70-110 H CREATININE (test code = 1739348127) 0.87 mg/dL 0.60-1.25 CALCIUM (test code = 2257135788) 9.3 mg/dL 8.6-10.6 eGFR (test code = 1580945487) 89.5 mL/min/1.73m2 CYRIL (test code = CYRIL) Association of Glomerular Filtration Rate (GFR) and Staging of Kidney Disease* + --+ --+ ------+| GFR (mL/min/1.73 m2) ?| With Kidney Damage ?| ?Without Kidney Damage+ --------+ --------+ +| ?>90 ?| ?Stage one ?| ? Normal ?+ ---+ ---+ -------+| ?60-89 ?| ?Stage two ?| ? Decreased GFR ? + --+ --+ ------+| ?30-59 ?| ?Stage three ?| ? Stage three ? + --+ --+ ------+| ?15-29 ?| ?Stage four ? | ? Stage four ?+ ---+ ---+ -------+| ?<15 (or dialysis) ? ?| ?Stage five ? | ? Stage five ?+ ---+ ---+ -------+ *Each stage assumes the associated GFR level has been in effect for at least three months. ?Stages 1 to 5, with or without kidney disease, indicate chronic kidney disease. Notes: Determination of stages one and two (with eGFR >59mL/min/1.73 m2) requires estimation of kidney damage for at least three months as defined by structural or functional abnormalities of the kidney, manifested by either:Pathological abnormalities or Markers of kidney damage (including abnormalities in the composition of the blood or urine or abnormalities in imaging tests). Lab Interpretation (test code = 23883-4) [facility]normal [facility] [id number] 08:30:03* Test Item Value Reference Range Interpretation Comme nts NT-proBNP (test code = 23363-7) <=125 Lab Interpretation (test cod e = 03155-9) Normal [facility] [id number] 08:17:34* Test Item Value Reference Range Interpretation Comme nts TROPONIN I (test code = 6158168654) 0.002 ng/mL <=0.034 CYRIL (test code = [...] of biotin. Lab Interpretation (test code = 18998-4) Normal [facility]-[id number] 08:04:10* Test Item Value Reference Range Interpretation Comments D-DIMER (test code = 7879325469) 0.45 See_Comment H [Automated message] The system which generated this result transmitted reference range: <0.41 ?g/mL (). The reference range was not used to [...] a diagnosis. Lab Interpretation (test code = 58511-0) Abnormal [facility] Notes Date/Time Note Provider Source 2023-05-26 06:06:02 tZHHxdIwnT8eNyJxe9Rq LW81jIVXS3aX+j yXx5oieO8MfdWEn5T4efKUIvnv2K9J9589 -08-16T06:06:02 Pt given printed and verbal discharge instructions regarding [...] with steady gait, in no apparent distress, [address]-5Zinoqhcxb department KnzgUG2156-03-88A55:07:15[facility] department NoteTXT1.2.840.627376.1.13.104.2.7 .2.808521|[id number] for patient hrpa00083-4FzohNJ734911867Csdwg A. Campbell RN[id number] 12LCZVZDXIGXPCEEWMXMQOPP5582-02-21 T06:07:151.2.840.226719.1.72.3.15| 1.2.840.424359.1.13.104.2.7.2.7278 [id number] Erin Stephens RN [facility] 2023-05-26 03:53:55 4LS3L3jprLwMwZS63MY0 PJBTrIqYJdJIOe 206+BRDDY7TblwOZsp2sXlAsHxpLo38090 -08-16T03:53:55 Notifed María [place] [address]-1Agyxiscte department CfjyRL3837-30-97H39:54:23[facility] Department NoteTXT1.2.840.723113.1.13.104.2.7 .2.281526|[id number] for patient lqzm73234-9GleqJYUDQYDEIR[id number] 32TRCLRMKOLPTCPDMGPPVZLG9930-65-63 T03:54:231.2.840.266632.1.72.3.15| 1.2.840.525655.1.13.104.2.7.2.7278 [id number] [facility] 2023-05-26 02:11:00 U2XreBXkw3viH2B8EdrQ k2yz1vwjADTRD3 6+rYI6hgX9AS7mwCXvq0YPmakUulGT4481 -08-16T02:11:00 Patient came in with complaints of wheezing and SOB since 3-4 days now. Patient states [facility] and just given a breathing treatment. 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 25078-9Bgarlgqaf department Triage aulqUR8372-49-71V83:23:22[facility] Triage noteTXT1.2.840.521510.1.13.104.2.7 .2.420023|[id number] for patient qbzs66957-5Psookvall department Note[id number] 61JAYDQKSWAWYCPNOMJNJBVT8131-72-97 T02:23:221.2.840.218041.1.72.3.15| 1.2.840.603820.1.13.104.2.7.2.7278 [id number] 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 Pt was also seen at the [facility] ago and was given an Albuterol inhalerHistory provided by: PatientLanguage motor vehicle parts interpreter used: No Shortness of BreathSeverity: ModerateOnset quality: [...] Provider Eval:ED Events Date/Time Event User Comments 05/26/23 2087 Medical Screening Begins CROW MANN MD -- 05/26/23 0226 First Provider Evaluation CROW MANN MD -- No notes of EC Admission Criteria type on file.ED COURSEDiagnosis/Impression as of 05/26/23 0551 SOB (shortness of breath) Pneumonia of left [...] No medications on file Follow-up:Electronically signed by: Crow Mann MD05/26/23 0551 58798-4Ahousaliv Emergency department LrdvGC0439-39-04W71:51:23Physician Emergency department NoteTXT1.2.840.551455.1.13.104.2.7 .2.719185|[id number] for patient wmlt78433-8Glykzulhi department NoteLNUT[address] QlwsQpskantohYneycfgygICHT86280820 55HXFVLTJUNAESEHQDUVSJHU4778-75-13 T05:51:231.2.840.795204.1.72.3.15| 1.2.840.866272.1.13.104.2.7.2.7278 [id number] [facility]
[2023-11-08] MEDS ORDERED: MORPHINE 4 MG/ML SYR ONE (03:31)
[2023-11-08] MEDS ORDERED: NA CHLORIDE 0.9% 1,000 ML ONE (03:31)
[2023-11-08] MEDS ORDERED: ONDANSETRON 4 MG/2 ML VIAL ONE (03:31)
[2023-11-08 04:09] LABS: Absolute Lymphocytes (CBC) 3.4 K/uL (0.7-4.9); Hematocrit 40.6 % (39.6-49.0); Lymphocytes % 29.8 % (15.3-44.8); MCV 87.8 fL (80-100); MPV 7.6 fL (7.6-11.3); Platelets 303 thou/uL (152-406); RBC Red Blood Cell Count 4.62 M/uL (4.33-5.43)
[2023-11-08 04:17] LABS: Protime INR 0.95
[2023-11-08 04:22] LABS: Albumin 3.9 g/dL (3.4-5.0); Bilirubin Direct 0.2 mg/dL (0-0.2); Bilirubin Indirect, Calculated 0.4 mg/dL (0.2-0.8); Bilirubin Total 0.6 mg/dL (0.2-1.0); Magnesium 2.7 mg/dL (1.6-2.4); Potassium 3.2 mEq/L (3.5-5.1); Protein, Total 7.4 g/dL (6.4-8.2); Troponin High Sensitivity 6.4 pg/mL (<58.9)
--- NOTE | 2023-11-08 05:27 | EDPHYS ---
Physician Documentation [facility] Name: Himanshu Banuelos Age: 63 yrs Sex: Male : 1960 Arrival Date: 11/08/2023 Time: 03:07 Bed 4 Private MD: ED Physician Louie Zepeda HPI: 11/08 05:12 This 63 yrs old Male presents to ER via EMS with complaints of sob. rn 05:17 The patient has shortness of breath at rest, with light activity. rn 05:17 Onset: The symptoms/episode began/occurred at an unknown time. Duration: The symptoms rn are continuous. The patient's shortness of breath is aggravated by exertion, light activity, is alleviated by inhaler, application of supplemental oxygen. Associated signs and symptoms: Pertinent positives: non-productive cough, Pertinent negatives: chest pain, fever, hemoptysis, loss of consciousness. Severity of symptoms: At their worst the symptoms were severe in the emergency department the symptoms have improved. The patient has experienced similar episodes in the past. Patient reports history of asthma, worsening shortness of breath, unable to tell me exactly when it began, called 911 and was noted to be in respiratory distress. Given multiple albuterol and Atrovent treatments in addition to epinephrine and high flow mask. Patient reports some improvement in his symptoms but still having moderate respiratory distress. Historical: - Allergies: 03:23 No Known Allergies; vc1 - PMHx: 03:23 Asthma; vc1 - PSHx: 03:23 None; vc1 - Family history:: not pertinent. - Hospitalizations: : No recent hospitalization is reported. ROS: 05:17 Constitutional: Negative for fever, chills, and weight loss, Neck: Positive for chronic rn neck pain denies injury or acute changes. Cardiovascular: Negative for chest pain, palpitations, and edema, Respiratory: Positive for cough and shortness of breath Abdomen/GI: Negative for abdominal pain, nausea, vomiting, diarrhea, and constipation, MS/Extremity: Negative for injury and deformity, Skin: Negative for injury, rash, and discoloration, Neuro: Negative for headache, weakness, numbness, tingling, and seizure, Exam: 05:17 Constitutional: This is a well developed, well nourished patient who is awake, alert, rn moderate respiratory distress, with retractions and tripoding Head/Face: Normocephalic, atraumatic. ENT: Dry mucous membranes, no stridor Neck: Trachea midline, no masses palpated. No Meningismus. No crepitus Cardiovascular: Tachycardic, regular Respiratory: Moderate tachypnea, respiratory rate in the 40s, poor inspiratory airflow with expiratory wheezing, positive retractions Abdomen/GI: Soft, non-tender, with normal bowel sounds. No distension or tympany. No guarding or rebound. No evidence of tenderness throughout. MS/ Extremity: Pulses equal, no cyanosis. Neurovascular intact. Full, normal range of motion. Equal circumference. Neuro: Awake and alert, GCS 15, moves all 4 extremities and answers all questions. Vital Signs: 03:19 BP 168 / 60; Pulse 100; Resp 48; Temp 98.1; Pulse Ox 100% on 15 lpm Non-rebreather vc1 mask; Weight 86.18 kg; Height 5 ft. 11 in. ; Pain 10/10; 03:30 BP 133 / 73; Pulse 86; Resp 20; Pulse Ox 100% on BiPAP; FiO2 60 %; vc1 04:00 BP 163 / 93; Pulse 83; Resp 20; Pulse Ox 100% on BiPAP; FiO2 60 %; vc1 05:06 BP 147 / 90; Pulse 78; Resp 20; Pulse Ox 100% on 60 lpm BiPAP; ha1 06:30 BP 151 / 86; Pulse 77; Resp 20 S; Pulse Ox 100% on 60 lpm BiPAP; ha1 03:19 Body Mass Index 26.50 (86.18 kg, 180.34 cm) vc1 03:19 Pain Scale: Adult vc1 MDM: 03:10 Patient medically screened. rn 05:17 Differential diagnosis: asthma, Chronic Obstructive Pulmonary Disease Myocardial rn Infarction pneumonia, Pneumothorax pulmonary edema, reactive airway disease. Data reviewed: vital signs, nurses notes, lab test result(s), EKG, radiologic studies, plain films, and as a result, I will admit patient. Consideration of Admission/Observation Patient was admitted/placed on observation. Escalation of care including admission/observation considered. Counseling: I had a detailed discussion with the patient and/or guardian regarding the historical points, exam findings, and any diagnostic results supporting the discharge/admit diagnosis, lab results, radiology results, the need for further work-up and treatment in the hospital. Response to treatment: the patient's symptoms have markedly improved after treatment, and as a result, I will admit patient. ED course: Patient with marked improvement on BiPAP. Respiratory rate from 48 down to 20 with 100% oxygen now. Chest x-ray shows possible pneumonitis. Patient with elevated lactate. Antibiotics ordered after blood cultures and lactate.. ED course: I personally spent 35 minutes engaged in work directly related to the individual patient's care. This does not include any time spent performing procedures. The patient has been deemed critically ill because of severe respiratory distress, near respiratory failure, requiring BiPAP and emergent stabilization.. 11/08 03:11 Order name: BMP rn 11/08 03:11 Order name: Blood Culture Adult (2) rn 11/08 03:11 Order name: CBC with Diff; Complete Time: 05:07 rn 11/08 03:11 Order name: Hepatic Function; Complete Time: 05:07 rn 11/08 03:11 Order name: Magnesium; Complete Time: 05:07 rn 11/08 03:11 Order name: NT PRO-BNP; Complete Time: 05:07 rn 11/08 03:11 Order name: PT-INR; Complete Time: 05: rn 11/08 03:11 Order name: Ptt, Activated; Complete Time: 05:07 rn 11/08 03:11 Order name: Troponin HS; Complete Time: 05:08 rn 11/08 03:11 Order name: CMP; Complete Time: 05:07 rn 11/08 03:11 Order name: Lactate w/ 2H reflex if indic.; Complete Time: 05:07 rn 11/08 03:11 Order name: SARS RAPID; Complete Time: 06:15 rn 11/08 03:11 Order name: Flu; Complete Time: 06:15 rn 11/08 03:41 Order name: Glucose, Ancillary Testing; Complete Time: 03:54 EDMS 11/08 07:13 Order name: Basic Metabolic Panel EDMS 11/08 07:13 Order name: Basic Metabolic Panel EDMS 11/08 07:13 Order name: CBC with Automated Diff EDMS 11/08 07:13 Order name: CBC with Automated Diff EDMS 11/08 07:13 Order name: Magnesium EDMS 11/08 07:13 Order name: Magnesium EDMS 11/08 07:13 Order name: Phosphorus EDMS 11/08 07:13 Order name: Phosphorus EDMS 11/08 07:13 Order name: Troponin High Sensitivity [facility] 11/08 07:13 Order name: Troponin High Sensitivity [facility] 11/08 07:13 Order name: Troponin High Sensitivity [facility] 11/08 07:30 Order name: Lactate Sepsis 2 HR Follow-up [facility] 11/08 03:11 Order name: XRAY CXR (1 view) rn 11/08 03:11 Order name: BIPAP rn 11/08 03:11 Order name: EKG; Complete Time: 03:12 rn 11/08 03:11 Order name: Cardiac monitoring; Complete Time: 03:26 rn 11/08 03:11 Order name: EKG - Nurse/Tech; Complete Time: 04:33 rn 11/08 03:11 Order name: IV Saline Lock; Complete Time: 03:41 rn 11/08 03:11 Order name: Labs collected and sent; Complete Time: 03:41 rn 11/08 03:11 Order name: O2 Per Protocol; Complete Time: 03:26 rn 11/08 03:11 Order name: O2 Sat Monitoring; Complete Time: 03:26 rn 11/08 03:11 Order name: Accucheck; Complete Time: 03:41 rn 11/08 03:11 Order name: IV Saline Lock - Large Bore; Complete Time: 03:26 rn 11/08 03:11 Order name: Vital Signs; Complete Time: 03:26 rn Administered Medications: 03:12 Drug: Levalbuterol Inhalation 1.25 mg Inhalation once Route: Inhalation; vc1 04:00 Follow up: Response: No adverse reaction ha1 03:12 Drug: Magnesium Sulfate IVPB 1 grams IVPB once over 1 hrs Route: IVPB; Infused Over: 1 vc1 hrs; Site: left antecubital; 06:43 Follow up: Response: No adverse reaction; Marked relief of symptoms; IV Status: ha1 Completed infusion 03:12 Drug: Ipratropium Inhalation Aerosol 0.5 mg Inhalation once Route: Inhalation; vc1 04:00 Follow up: Response: No adverse reaction; Marked relief of symptoms ha1 03:45 Drug: NS 0.9% IV 1000 ml IV at 1000 ml once Route: IV; Rate: 1000 ml; Site: left vc1 antecubital; 06:43 Follow up: Response: No adverse reaction; IV Status: Completed infusion; IV Intake: ha1 1000ml 03:45 Drug: morphine IVP or IV 4 mg IVP once over 4 mins Route: IVP; Infused Over: 4 mins; vc1 Site: left antecubital; 04:00 Follow up: Response: No adverse reaction; Pain is decreased; RASS: Alert and Calm (0) ha1 03:45 Drug: Ondansetron IVP 4 mg IVP once; over 2 minutes Route: IVP; Site: left antecubital; vc1 04:00 Follow up: Response: No adverse reaction ha1 06:55 Drug: Rocephin IV 1 grams IV at calculated rate once; Given slow IV push per pharmacy vc1 instructions Route: IV; Rate: calculated rate; Site: right antecubital; 06:55 Drug: Zithromax IVPB 500 mg IVPB once over 1 hrs; mix in 250 mL NS Route: IVPB; Infused vc1 Over: 1 hrs; Site: right antecubital; Disposition: 05:17 Critical Care:. 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 Total time: 35 minutes rn Signatures: Dispatcher [employer] EDLouie Bernal MD MD rn Martinez, Eric em1 Annie Carr RN RN 1 Sivan Renee RN 1 Corrections: (The following items were deleted from the chart) 05:21 05:17 Constitutional: Negative for fever, chills, and weight loss, Cardiovascular: rn Negative for chest pain, palpitations, and edema, Respiratory: Positive for cough and shortness of breath Abdomen/GI: Negative for abdominal pain, nausea, vomiting, diarrhea, and constipation, MS/Extremity: Negative for injury and deformity, Skin: Negative for injury, rash, and discoloration, Neuro: Negative for headache, weakness, numbness, tingling, and seizure, ludwig 05:26 Telemetry/MedSurg (Inpatient) rn em1 05:26 rn em1
--- NOTE | 2023-11-08 05:27 | ER ---
Nurse's Notes [facility] Name: Himanshu Banuelos Age: 63 yrs Sex: Male : 1960 Arrival Date: 11/08/2023 Time: 03:07 Bed 4 Private MD: Diagnosis: Moderate persistent asthma with (acute) exacerbation;Acute respiratory distress Presentation: 11/08 03:19 Chief complaint: EMS states: We were called out for shortness of breath, when we vc1 arrived he was working really hard to breath. He said he took his albuterol inhaler and an albuterol neb with no improvement. Coronavirus screen: shortness of breath, Client presents with at least one sign or symptom that may indicate coronavirus-19. Ebola Screen: Patient negative for fever greater than or equal to 101.5 degrees Fahrenheit, and additional compatible Ebola Virus Disease symptoms Patient denies exposure to infectious person. Patient denies travel to an Ebola-affected area in the 21 days before illness onset. No symptoms or risks identified at this time. Initial Sepsis Screen: Does the patient meet any 2 criteria? RR > 20 per min. HR > 90 bpm. Yes Does the patient have a suspected source of infection? No. Patient's initial sepsis screen is negative. Risk Assessment: Do you want to hurt yourself or someone else? Patient reports no desire to harm self or others. Onset of symptoms was November 08, 2023. 03:19 Method Of Arrival: EMS: [facility] vc1 03:19 Acuity: JOSE DE JESUS 2 vc1 03:19 Care prior to arrival: Medication(s) given: Albuterol Neb x 2, Atrovent Neb x 2, vc1 solumedrol 125mg 3mg epi. Triage Assessment: 03:23 General: Appears distressed, uncomfortable, slender, Behavior is cooperative, anxious. vc1 Pain: Complains of pain in right posterior aspect of neck and left posterior aspect of neck Pain does not radiate. Pain currently is 10 out of 10 on a pain scale. Quality of pain is described as sharp, Pain began chronic. EENT: No deficits noted. No signs and/or symptoms were reported regarding the EENT system. Neuro: Level of Consciousness is awake, alert, obeys commands, Oriented to person, place, time, situation, Appropriate for age. Cardiovascular: No deficits noted. Respiratory: Reports shortness of breath at rest labored breathing Airway is patent Respiratory effort is even, labored, Respiratory pattern is symmetrical, tachypnea Patient placed on BiPAP: Inspiratory Pressure: 16 Expiratory (EPAP) Pressure: 8 FiO2%: 35 Respiratory Rate: 16 Breath sounds with wheezes bilaterally. the patient has severe shortness of breath. GI: No deficits noted. No signs and/or symptoms were reported involving the gastrointestinal system. : No deficits noted. No signs and/or symptoms were reported regarding the genitourinary system. Derm: No deficits noted. No signs and/or symptoms reported regarding the dermatologic system. Musculoskeletal: No deficits noted. No signs and/or symptoms reported regarding the musculoskeletal system. Historical: - Allergies: 03:23 No Known Allergies; vc1 - PMHx: 03:23 Asthma; vc1 - PSHx: 03:23 None; vc1 - Family history:: not pertinent. - Hospitalizations: : No recent hospitalization is reported. Screenin:25 [facility] ED Fall Risk Assessment (Adult) History of falling in the last 3 months, vc1 including since admission No falls in past 3 months (0 pts) Confusion or Disorientation No (0 pts) Intoxicated or Sedated No (0 pts) Impaired Gait No (0 pts) Mobility Assist Device Used No (0 pt) Altered Elimination No (0 pt) Score/Fall Risk Level 0 - 2 = Low Risk Oriented to surroundings, Maintained a safe environment, Educated pt \T\ family on fall prevention, incl call for assistance when getting out of bed. Abuse screen: Denies threats or abuse. Nutritional screening: No deficits noted. Tuberculosis screening: No symptoms or risk factors identified. Assessment: 04:00 Reassessment: Patient and/or family updated on plan of care and expected duration. Pain ha1 level reassessed. Respiratory: Respiratory effort is labored, Respiratory pattern is tachypnea. 04:33 Reassessment: Patient and/or family updated on plan of care and expected duration. Pain vc1 level reassessed. Patient states feeling better. Patient states symptoms have improved. Respiratory:. 05:30 Reassessment: Patient and/or family updated on plan of care and expected duration. Pain ha1 level reassessed. Patient is alert, oriented x 3, equal unlabored respirations, skin warm/dry/pink. Patient states feeling better. Patient states symptoms have improved. 06:56 Reassessment: Patient and/or family updated on plan of care and expected duration. Pain vc1 level reassessed. Patient is alert, oriented x 3, equal unlabored respirations, skin warm/dry/pink. Patient states feeling better. Patient states symptoms have improved. Vital Signs: 03:19 BP 168 / 60; Pulse 100; Resp 48; Temp 98.1; Pulse Ox 100% on 15 lpm Non-rebreather vc1 mask; Weight 86.18 kg; Height 5 ft. 11 in. ; Pain 10/10; 03:30 BP 133 / 73; Pulse 86; Resp 20; Pulse Ox 100% on BiPAP; FiO2 60 %; vc1 04:00 BP 163 / 93; Pulse 83; Resp 20; Pulse Ox 100% on BiPAP; FiO2 60 %; vc1 05:06 BP 147 / 90; Pulse 78; Resp 20; Pulse Ox 100% on 60 lpm BiPAP; ha1 06:30 BP 151 / 86; Pulse 77; Resp 20 S; Pulse Ox 100% on 60 lpm BiPAP; ha1 03:19 Body Mass Index 26.50 (86.18 kg, 180.34 cm) vc1 03:19 Pain Scale: Adult vc1 ED Course: 03:09 Patient arrived in ED. rn 03:09 Patient has correct armband on for positive identification. Placed in gown. Bed in low ha1 position. Call light in reach. Side rails up X 1. 03:10 Louie Zepeda MD is Attending Physician. rn 03:15 Inserted saline lock: 20 gauge in right antecubital area, using aseptic technique. ha1 Blood collected. 03:23 Triage completed. vc1 03:41 Troponin HS Sent. ha1 03:41 Ptt, Activated Sent. ha1 03:41 PT-INR Sent. ha1 03:41 NT PRO-BNP Sent. ha1 03:41 Magnesium Sent. ha1 03:41 Hepatic Function Sent. ha1 03:41 CBC with Diff Sent. ha1 03:41 Blood Culture Adult (2) Sent. ha1 03:41 BMP Sent. ha1 03:42 CMP Sent. ha1 03:42 Lactate w/ 2H reflex if indic. Sent. ha1 03:42 Maintain EMS IV. Dressing intact. 20 gauge left AC. ha1 04:31 Annie Carr, RN is Primary Nurse. vc1 04:33 XRAY CXR (1 view) In Process Unspecified. EDMS 05:02 Flu Sent. ha1 05:02 SARS RAPID Sent. ha1 05:25 Gonzalo Sommer is Hospitalizing Provider. rn 06:55 No provider procedures requiring assistance completed. Patient admitted, IV remains in vc1 place. Administered Medications: 03:12 Drug: Levalbuterol Inhalation 1.25 mg Inhalation once Route: Inhalation; vc1 04:00 Follow up: Response: No adverse reaction ha1 03:12 Drug: Magnesium Sulfate IVPB 1 grams IVPB once over 1 hrs Route: IVPB; Infused Over: 1 vc1 hrs; Site: left antecubital; 06:43 Follow up: Response: No adverse reaction; Marked relief of symptoms; IV Status: ha1 Completed infusion 03:12 Drug: Ipratropium Inhalation Aerosol 0.5 mg Inhalation once Route: Inhalation; vc1 04:00 Follow up: Response: No adverse reaction; Marked relief of symptoms ha1 03:45 Drug: NS 0.9% IV 1000 ml IV at 1000 ml once Route: IV; Rate: 1000 ml; Site: left vc1 antecubital; 06:43 Follow up: Response: No adverse reaction; IV Status: Completed infusion; IV Intake: ha1 1000ml 03:45 Drug: morphine IVP or IV 4 mg IVP once over 4 mins Route: IVP; Infused Over: 4 mins; vc1 Site: left antecubital; 04:00 Follow up: Response: No adverse reaction; Pain is decreased; RASS: Alert and Calm (0) ha1 03:45 Drug: Ondansetron IVP 4 mg IVP once; over 2 minutes Route: IVP; Site: left antecubital; vc1 04:00 Follow up: Response: No adverse reaction ha1 06:55 Drug: Rocephin IV 1 grams IV at calculated rate once; Given slow IV push per pharmacy vc1 instructions Route: IV; Rate: calculated rate; Site: right antecubital; 06:55 Drug: Zithromax IVPB 500 mg IVPB once over 1 hrs; mix in 250 mL NS Route: IVPB; Infused vc1 Over: 1 hrs; Site: right antecubital; Medication: 06:56 VIS not applicable for this client. vc1 Intake: 06:43 IV: 1000ml; Total: 1000ml. ha1 Outcome: 05:26 Decision to Hospitalize by Provider. rn 16:56 Patient left the ED. ph Signatures: Dispatcher [employer] EDLouie Bernal MD MD rn Hall, Patricia RN RN Annie Rodriguez RN RN vc1 Sivan Renee, BRIELLE RN ha1 Corrections: (The following items were deleted from the chart) 04:05 03:19 BP 168 / 60; Pulse 100bpm; Resp 48bpm; Pulse Ox 100%; Temp 98.1F; 86.18 kg; vc1 Height 5 ft. 11 in.; BMI: 26.5; Pain 10/10, Adult; vc1 04:32 04:04 BP 133 / 73; Pulse 86bpm; Resp 20bpm; Pulse Ox 100% BiPAP FiO2 60%; vc1 vc1
[2023-11-08 06:03] LABS: SARS-CoV-2 Antigen Rapid Res Negative (Negative)
--- NOTE | 2023-11-08 06:41 | P.HP ---
Certification for Inpatient Patient admitted to: Observation With expected LOS: >2 Midnights Patient will require the following post-hospital care: None Practitioner: I am a practitioner with admitting privileges, knowledge of patient current condition, hospital course, and medical plan of care. Services: Services provided to patient in accordance with Admission requirements found in Title 42 Section 412.3 of the Code of Federal Regulations Patient History Date of Service: 11/08/23 Reason for admission: SOB, persistent asthma History of Present Illness: Himanshu Banuelos is a 63-year-old male with past medical history of asthma who presents to the ED with complaints of shortness of breath. When the EMS arrived they observed increased work of breathing and acute respiratory distress. He reported to EMS that he took his albuterol inhaler and albuterol nebulizer with no improvement. While in the ED his respiration rate was 48 and he wore BiPAP with improvement of respiration rate of 20. Chest x-ray resulted with pneumonitis, elevated lactate at 2.9, no shock. He was given Zofran, 1 L normal saline, azithromycin, rocephin, and morphine as well as placed on the BiPAP in the ED. Initial vitals BP 168 / 60; Pulse 100; Resp 48; Temp 98.1; Pulse Ox 100% on 15 lpm Non-rebreather mask Laboratory evaluation H&H 13/40, WBC 11.4, platelets 303, lactic acid 2.9, bicarb 27, serum glucose 147. Himanshu will be admitted to hospitalist service for further evaluation and treatment of acute respiratory distress secondary to persistent asthma. Allergies No Known Allergies Allergy (Unverified 12/15/12 02:34) - Past Medical/Surgical History -: asthma Past Surgical History: Reviewed- Non-Contributory Review of Systems Respiratory: Cough, Shortness of Breath, Other (increased work of breathing) Physical Examination - Vital Signs Pulse: 98 Pulse Ox (%): 100 - Physical Exam General: Alert, In no apparent distress, Oriented x3, Acute distress HEENT: Atraumatic, Normocephalic, PERRLA Neck: Supple, 2+ carotid pulse no bruit, JVD not distended Respiratory: Expiratory wheezes Cardiovascular: Normal pulses, Regular rate/rhythm, Normal S1 S2 Capillary refill: <2 Seconds Gastrointestinal: Normal bowel sounds, Soft and benign Musculoskeletal: No clubbing, No swelling, No contractures Integumentary: No rashes, No breakdown, No significant lesion Neurological: Normal speech, Normal strength at 5/5 x4 extr, Normal tone - Studies Laboratory Data (last 24 hrs) 11/08/23 11/08/23 11/08/23 03:35 03:35 03:35 WBC 11.40 H Hgb 13.5 L Hct 40.6 Plt Count 303 PT 10.5 INR 0.95 APTT 29.0 Sodium 138 Potassium 3.2 L BUN 12 Creatinine 1.00 Glucose 147 H Magnesium 2.7 H Total Bilirubin 0.6 AST 7 L ALT 22 Alkaline Phosphatase 52 Microbiology Data (last 24 hrs): 11/08/23 04:58 Nasopharnyx Influenza Type A Antigen Screen - Final 11/08/23 04:58 Nasopharnyx Influenza Type B Antigen Screen - Final Assessment and Plan - Plan Assessment and Plan Acute hypoxic respiratory distress 2/2 persistent asthma Lactic acidosis with mild leukocytosis CXR reads " pneumonititis" Lactic acid 2.9, repeat pending, WBC 11.3 Zofran, 1 L normal saline, azithromycin, rocephin, and morphine- given in the ED continue azithromycin currently on Bipap, will attempt to wean to [place]- no home oxygen blood culture pending flu negative hyperglycemia serum glucose 147 A1C Pending Hypertensive disorder Not currently treated hydralazine PRN DVT ppx lovenox Full code Discharge Plan: Home Plan to discharge in: 24 Hours - Advance Directives Does patient have a Living Will: No Does patient have a Durable POA for Healthcare: No Time Spent Managing Pts Care (In Minutes): 50
[2023-11-08] MEDS ORDERED: NA CHLORIDE 0.9% 250 ML ONE (06:42)
[2023-11-08] MEDS ORDERED: AZITHROMYCIN 500 MG INJ IVPB ONE (06:42)
[2023-11-08] MEDS ORDERED: CEFTRIAXONE 1000 MG/VIAL ONE (06:42)
[2023-11-08] MEDS ORDERED: ALBUTEROL 2.5 MG/3 ML NEB SOL NEB PRN (07:07)
[2023-11-08] MEDS ORDERED: HYDRALAZINE HCL 20 MG/ML VIAL IV PRN (07:12)
[2023-11-08] MEDS: IPRATROPIUM BROM 0.5MG/2.5ML NEB SCH ×2 (07:45→13:07)
[2023-11-08] MEDS ORDERED: MAGNESIUM SULFATE 1 gm IVPB 1 GM/100 ML BAG IV ONE (08:00)
[2023-11-08] MEDS ORDERED: ENOXAPARIN 40 MG/0.4 ML SQ SCH (09:00)
--- NOTE | 2023-11-08 12:53 | RAD REPORT ---
EXAM DESCRIPTION: RAD - Chest Single View - 11/08/2023 4:31 am CLINICAL HISTORY: 63 years Male, DYSPNEA COMPARISON: CT chest report and chest x-ray report from 09/21/2023. The images were not available fo r review. TECHNIQUE: Single portable x-ray view of the chest performed on 11/08/2023 at 4:28 AM FINDINGS: The lungs are well expanded. No focal airspace process is identified. There is mild diffus e coarsening of the interstitial lung markings bilaterally which may be due to chronic interstitial l kishan disease versus possible interstitial pneumonitis or edema. No dense airspace consolidation is marva ntified. The lateral costophrenic sulci are clear. There is no evidence of a pneumothorax. The cardiac silhouette is normal in size and configuration. The mediastinal contours are normal. No acute osseous abnormality is identified. No focal soft tissue abnormalities are seen. Lines and tubes: None. Free air: None identified, IMPRESSION: 1. No evidence of acute intrathoracic disease. 2. Mild diffuse coarsening of the interstitial lung markings bilaterally which may be due to chroni c interstitial lung disease versus possible interstitial pneumonitis or edema. Electronically signed by: Julianna Howard DO 11/08/2023 04:43 AM PRECIPITATOR OPERATOR Due to temporary technical issues with the PACS/Fluency reporting system, reports are being signed by the in house radiologist without review as a courtesy to ensure prompt reporting. The interpreting r adiologist is fully responsible for the content of the report.
[2023-11-08 13:13] VITALS: O2SAT 95
[2023-11-08 14:58] VITALS: BP 145/92; TEMP 97.8; BMI 26.4
--- NOTE | 2023-11-08 17:06 | P.SSS ---
Patient History Date of Service: 11/08/23 Reason for admission: SOB, persistent asthma History of Present Illness: Himanshu Banuelos is a 63-year-old male with past medical history of asthma who presents to the ED with complaints of shortness of breath. When the EMS arrived they observed increased work of breathing and acute respiratory distress. He reported to EMS that he took his albuterol inhaler and albuterol nebulizer with no improvement. While in the ED his respiration rate was 48 and he wore BiPAP with improvement of respiration rate of 20. Chest x-ray resulted with pneumonitis, elevated lactate at 2.9, no shock. He was given Zofran, 1 L normal saline, azithromycin, rocephin, and morphine as well as placed on the BiPAP in the ED. Initial vitals BP 168 / 60; Pulse 100; Resp 48; Temp 98.1; Pulse Ox 100% on 15 lpm Non-rebreather mask Laboratory evaluation H&H 13/40, WBC 11.4, platelets 303, lactic acid 2.9, bicarb 27, serum glucose 147. Himanshu will be admitted to hospitalist service for further evaluation and treatment of acute respiratory distress secondary to persistent asthma. Review of Systems Respiratory: Cough, Shortness of Breath, Other (increased work of breathing) Physical Exam General: Alert, In no apparent distress, Oriented x3, Acute distress HEENT: Atraumatic, Normocephalic, PERRLA Neck: Supple, 2+ carotid pulse no bruit, JVD not distended Respiratory: Expiratory wheezes Cardiovascular: Normal pulses, Regular rate/rhythm, Normal S1 S2 Capillary refill: <2 Seconds Gastrointestinal: Normal bowel sounds, Soft and benign Musculoskeletal: No clubbing, No swelling, No contractures Integumentary: No rashes, No breakdown, No significant lesion Neurological: Normal speech, Normal strength at 5/5 x4 extr, Normal tone Allergies No Known Allergies Allergy (Unverified 12/15/12 02:34) Home Medications: Albuterol Inhaler [Ventolin Inhaler*] 2 puff IH Q6H PRN 30 Days #1 aer 11/08/23 Azithromycin [Zithromax 1 Gm Packet] 1 gm PO ONCE #1 packet 11/08/23 - Past Medical/Surgical History -: asthma - Social History Smoking Status: Never smoker Alcohol use: No CD- Drugs: No Physical Examination - Vital Signs Temperature: 97.8 F Blood Pressure: 145/92 Pulse: 97 Respirations: 20 Pulse Ox (%): 95 - Studies Laboratory Data (last 24 hrs) 11/08/23 11/08/23 11/08/23 03:35 03:35 03:35 WBC 11.40 H Hgb 13.5 L Hct 40.6 Plt Count 303 PT 10.5 INR 0.95 APTT 29.0 Sodium 138 Potassium 3.2 L BUN 12 Creatinine 1.00 Glucose 147 H Magnesium 2.7 H Total Bilirubin 0.6 AST 7 L ALT 22 Alkaline Phosphatase 52 Microbiology Data (last 24 hrs): 11/08/23 04:58 Nasopharnyx Influenza Type A Antigen Screen - Final 11/08/23 04:58 Nasopharnyx Influenza Type B Antigen Screen - Final Treatment Summary: On 11/08/23, Himanshu Banuelos presented to the ED with shortness of breath and increased work of breathing after reportedly using his albuterol inhaler and nebulizer. On arrival to the ED his respirations were 48 at which time the BiPAP was used and his respirations improved to 20 shortly after. He later tolerated room air with oxygen saturation 96%. He tolerated IV fluids, azithromycin, Rocephin, morphine, magnesium IV,and Zofran. He was no longer under acute distress, has bilaterally clear breath sounds, tolerated p.o. diet, ambulating independently and hemodynamically stable. He was discharged on 11/08/2023, with albuterol inhaler and Z-Javier prescriptions provided. He will need to follow-up with his PCP concerning his asthma treatment and any other medication refills as well as his blood pressure management. 1. Follow up with PCP for continued asthma treatment and medication refills, also concerned about high blood pressure 2.Continue with regular diet 3. no activity restrictions 4. return to the ED if symptoms worsen New medications Z pack take as directed Albuterol inhaler - Disposition Discharge Date: 11/08/23 Disposition: ROUTINE DISCHARGE Condition: GOOD Patient Discharge Instructions: You came to the ED with shortness of breath and increased work of breathing after reportedly using your albuterol inhaler and nebulizer. You have tolerated the Bipap which significantly improve your oxygen saturation. You are now on room air with satisfactory oxygenation and hemodynamically stable, ready for discharge. please take the zithormycin as directed, see your PCP concerning your high blood pressure. 1. Follow up with PCP for continued asthma treatment and medication refills, also concerned about high blood pressure. 2.Continue with regular diet. 3. no activity restrictions. 4. return to the ED if symptoms worsen. New medications. Z pack take as directed. Albuterol inhaler Activity: Ad molly Time Spent Managing Pts Care (In Minutes): 35
[2023-11-09] MEDS ORDERED: AZITHROMYCIN IV 500 MG in NA CHLORIDE 0.9% 250 ML IVPB SCH (09:00)
== END 2023-11-08 16:55 | disposition home or self-care (01) ==
LOC: ER 03:07 → ERHOLD 07:25
PROVIDERS: ADMIT Internal Medicine; ATTEND Internal Medicine
DX: J45.41 Moderate persistent asthma with (acute) exacerbation (principal); R06.03 Acute respiratory distress; E87.20 Acidosis, unspecified; D72.829 Elevated white blood cell count, unspecified; I10 Essential (primary) hypertension; R73.9 Hyperglycemia, unspecified
CPT/HCPCS: 93005 ×2; 87040 ×2; 85025; 36415; 83735; 85610; 82947; 80076; 83605 ×2; 85730; 84484 ×2; 80053; 83880; 87804 ×2; 71045; 94640 ×2; 87811; 94660; J7644 ×3; J2405; J7050; J7030; J0696

== ENCOUNTER → 2023-12-06 | Emergency (ER) | payer OTHER ==
[~2023-12-06] MED LIST: ACETAMINOPHEN 500 MG TAB ONE; AMLODIPINE 10 MG TAB ONE; DIAZEPAM 2 MG TABLET ONE; HYDRALAZINE HCL 20 MG/ML VIAL ONE; LORazepam 2 MG/ML VIAL ONE; NA CHLORIDE 0.9% 1,000 ML ONE
--- OUTSIDE RECORDS SUMMARY | 2023-12-06 22:07 | XMS REPORT | Continuity of Care Document ---
Author Name Unknown Address [address] [facility] [place] [address] [facility] thconnect Address [address] [facility] [address] [place] [address] Care Team Providers Care Seconds Inspector Name Role Phone PCP, PATIENT DOES NOT HAVE A Primary Care Physic loida Unavailable LISA MARTINEZ Attending Clinician Unavailable Lisa Martinez NP Attending Clinician [phone] Doctor Unassigned, [place] Attending Clinician U navailable CROW MANN Attending Clinician Unavailable Crow Mann MD Attending Clinician [phone] LISA MARTINEZ Admitting Clinician Unavailable CROW MANN Admitting Clinician Unavailable Payers Payer Name Policy Type Policy Number Effective Date Expirati on Date Source [employer]WORK [id number] 2022 00:00:00 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 [id number] 2016 00:00:00 2023 00:00:00 Allergies, Adverse Reactions, Alerts Allergy Name Allergy Type Status Severity Reaction(s) Onset Date Inactive Date Treating Clinician Comments Source NO KNOWN ALLERGIE S Drug Class Active [facility] Social History Social Habit Start Date Stop Date Quantity Comments Source Gender identity [facility] Sex Ass[facility] At 1960 00:00:00 1960 00:00:00 [facility] Smoking Status Start Date Stop Date Source Tobacco smoking consumption unknown [facility] Medications Ordered Medication Name Filled Medication Name Start Date Stop Date Current Medication? Ordering Clinician Indication Dosage Frequency Signature (SIG) Comments Components Source doxycycline hyclate 100 mg capsule 07-10 00:00: 00 Yes [id number] 100mg Take 1 capsule by mouth in the morning and 1 capsule in the evening. [facility] ipratropium -albuteroL (DUONEB) 0.5 mg-3 mg(2.5 mg base)/3 mL nebulizer solution 3 mL 05-26 13:00: 00 Yes 3mL 3 mL, Inhalation , QID, First dose on Wed05/26/23 at 0800, Until Discontinu ed, Routine [facility] levoFLOXaci n (LEVAQUIN) tablet 750 mg 05-26 11:45: 00 05-26 10:49 :00 No 750mg 750 mg, Oral, ONCE NOW, 1 dose, On Wed05/26/23 at 0645, RUPERTO
Re ason for Anti-Infec tive: Documented Infection< br>Documen ange Infection Site: Respirator y
Durat ion of Therapy: Other (see Comments) [facility] iopamidol (ISOVUE 370-500 mL) injection 100 mL 05-26 11:00: 00 05-26 11:00 :00 No [id number] 100mL 100 mL, Intravenou s, ONCE, 1 dose, On Wed05/26/23 at 0600, Routine [facility] fluticasone propion-gurdeep meteroL (ADVAIR DISKUS) 250-50 mcg/dose inhalation disk 05-26 00:00: 00 Yes [id number] 1{puff} Inhale 1 Puff in the morning and 1 Puff in the evening. [facility] levoFLOXaci n (LEVAQUIN) 750 mg tablet 05-26 00:00: 00 Yes [id number] 750mg Take 1 tablet by mouth every 24 (twenty-fo ur) hours. [facility] fluticasone propion-gurdeep meteroL (ADVAIR DISKUS) 250-50 mcg/dose inhalation disk 05-26 00:00: 00 Yes [id number] 1{puff} Inhale 1 Puff in the morning and 1 Puff in the evening. [facility] fluticasone propion-gurdeep meteroL (ADVAIR DISKUS) 250-50 mcg/dose inhalation disk 05-26 00:00: 00 Yes [id number] 1{puff} Inhale 1 Puff in the morning and 1 Puff in the evening. [facility] levoFLOXaci n (LEVAQUIN) 750 mg tablet 05-26 00:00: 00 07-10 00:00 :00 No [id number] 750mg Take 1 tablet by mouth every 24 (twenty-fo ur) hours. [facility] levoFLOXaci n (LEVAQUIN) 750 mg tablet 05-26 00:00: 00 07-10 00:00 :00 No [id number] 750mg Take 1 tablet by mouth every 24 (twenty-fo ur) hours. [facility] albuterol 90 mcg/actuati on inhaler 05-21 00:00: 00 Yes INHALE 1 PUFF BY MOUTH FOUR TIMES A DAY NEEDED FOR BREATHING [facility] Vital Signs Vital Name Observation Time Observation Value Comments S héctorce Systolic blood pressure 2023-07-11 02:45:32 154 mm[Hg] [facility] Diastolic blood pressure 2023-07-11 02:45:32 87 mm[Hg] [facility] Heart rate 2023-07-11 02:45:32 66 /min [facility] Respiratory rate 2023-07-11 02:45:32 16 /min [facility] Oxygen saturation in Arterial blood by Pulse oximetry 2023-07-11 02:45:32 98 /min [facility] Body temperature 2023-07-11 00:34:00 36.72 Lawanda [facility] Body height 2023-07-11 00:34:00 180.3 cm [facility] Body weight 2023-07-11 00:34:00 87.544 kg [facility] BMI 2023-07-11 00:34:00 26.92 kg/m2 [facility] Systolic blood pressure 2023-05-26 10:00:00 130 mm[Hg] [facility] Diastolic blood pressure 2023-05-26 10:00:00 90 mm[Hg] [facility] Heart rate 2023-05-26 10:00:00 91 /min [facility] Respiratory rate 2023-05-26 10:00:00 23 /min [facility] Oxygen saturation in Arterial blood by Pulse oximetry 2023-05-26 10:00:00 94 /min [facility] Body temperature 2023-05-26 07:11:00 37.33 Lawanda [facility] Body height 2023-05-26 07:11:00 180.3 cm [facility] Body weight 2023-05-26 07:11:00 85.276 kg [facility] BMI 2023-05-26 07:11:00 26.22 kg/m2 [facility] Procedures Procedure Date / Time Performed Performing Clinicia n Source XR CHEST 1 VW 2023-07-11 01:11:47 Lisa Martinez [facility] ASSIGNMENT OF BENEFITS 2023-07-11 00:51:27 Docto r Unassigned, [place] [facility] CONSENT/REFUSAL FOR DIAGNOSIS AND TREATMENT 2023-07-11 00:23:57 Doctor Unassigned, [place] [facility] TROPONIN I 2023-05-26 07:42:00 Crow Mann [facility] BASIC METABOLIC PANEL (NA, K, CL, CO2, GLUCOSE, BUN, CREATININE, CA) 2023-05-26 07:42:00 Crow Mann [facility] D-DIMER 2023-05-26 07:42:00 Crow Mann [facility] N-TERMINAL PRO-BNP 2023-05-26 07:42:00 Crow Mann [facility] COVID-19 (ID NOW RAPID TESTING) 2023-05-26 07:42:00 Crow Mann [facility] NOTICE OF PRIVACY PRACTICES 2023-05-26 07:11:11 Doctor Unassigned, [place] [facility] CONSENT/REFUSAL FOR DIAGNOSIS AND TREATMENT 2023-05-26 07:10:40 Doctor Unassigned, [place] [facility] Encounters Start Date/Time End Date/Time Encounter Type Admission Type Attending [facility] Facility Care Department Encounter ID Source 2023-11-01 10:59:22 2023-11-01 10:59:22 Outpatient SFA [id number] Mick Cardozo 2023-07-10 19:36:00 2023-07-10 22:01:00 Emergency X LISA MARTINEZ [facility] ERT [id number] [facility] 2023-07-10 19:36:00 2023-07-10 22:01:00 Emergency Lisa Martinez [facility] [id number] 4.2.7.2.686 [id number] [facility] 2023-07-10 00:00:00 2023-07-10 00:00:00 Orders Only Doctor Unassigned, [place] [facility] [id number] 350.1.13.10 4.2.7.2.686 [id number] [facility] 2023-05-26 02:14:00 2023-05-26 06:07:00 Emergency X CROW MANN [facility] ERT [id number] [facility] 2023-05-26 02:14:00 2023-05-26 06:07:00 Emergency Crow Mann [facility] [id number] 350.1.13.10 4.2.7.2.686 [id number] [facility] Results Test Description Test Time Test Comments Results Result Co mments Source HIV 1/2 4TH GEN, RFLX [id number] 03:41:40* Test Item Value Reference Range Interpretation Comme nts HIV 1/2 4TH GEN, RFLX CONF (test code = 3514) NON-REACTIVE NON-REACTIVE UNLESS OTHERWISE INDICATED, ALL TESTING PERFORMED AT [facility] [address] [place] [address] FACILITY SERVICE ASSOCIATE: OLESYA HALLMAN M.D. [place] NUMBER [id number] [facility] [place]. [id number] RPR REFLEX TO T. PALLIDUM - [id number] 03:39:24* Test Item Value Reference Range Interpretation Comme nts RPR (test code = 94307) NON-REACTIVE NON-REACTIVE RPR TITER (test code = 3500) NOT INDIC. TITER NOT INDIC. BASIC METABOLIC PANEL (NA, K, CL, CO2, GLUCOSE, BUN, CREATININE, CA)2023-05-26 09:46:43* Test Item Value Reference Range Interpretation Comme nts NA (test code = 9864983815) 137 mmol/L 135-145 K (test code = 0534258558) 4.0 mmol/L 3.5-5.0 CL (test code = 0244249994) 102 mmol/L 98-108 CO2 TOTAL (test code = 8960045218) 26 mmol/L 23-31 AGAP (test code = 8470770896) 9 2-16 BUN (test code = 3016956594) 19 mg/dL 7-23 GLUCOSE (test code = 6852609897) 143 mg/dL 70-110 H CREATININE (test code = 2536483843) 0.87 mg/dL 0.60-1.25 CALCIUM (test code = 9168152984) 9.3 mg/dL 8.6-10.6 eGFR (test code = 3348652949) 89.5 mL/min/1.73m2 CYRIL (test code = CYRIL) [...] imaging tests). Lab Interpretation (test code = 01290-2) [id number] 08:30:03* Test Item Value Reference Range Interpretation Comme nts NT-proBNP (test code = 84096-9) <=125 Lab Interpretation (test cod e = 14059-3) Normal [facility] [id number] 08:17:34* Test Item Value Reference Range Interpretation Comme nts TROPONIN I (test code = 2199976168) 0.002 ng/mL <=0.034 CYRIL (test code = [...] of biotin. Lab Interpretation (test code = 24994-4) Normal [facility]WO[facility]YL2614-87-82 08:04:10* Test Item Value Reference Range Interpretation Comments D-DIMER (test code = 6354399530) 0.45 See_Comment H [Automated message] The system [...] a diagnosis. Lab Interpretation (test code = 02440-2) Abnormal [facility] Notes Date/Time Note Provider Source 2023-05-26 06:06:02 hHBSteTjgY7uEtTlk3Yb OU92oIUTW4sD+j sCg6dygG1TzpQOa1O3zqCXWexg8Q7P2123 -08-16T06:06:02 Pt given printed and verbal discharge [...] with steady gait, in no apparent distress, 99087-8Axincilvf department DxunHO5223-82-30B15:07:15[facility] department NoteTXT1.2.840.011227.1.13.104.2.7 .2.654094|[id number] for patient pheb52432-5MwmzUS922541230Fjaqg A. Campbell RN[address]TXTX[address] 41UTVNPWSJISDYHVAKHERYIF5154-77-26 T06:07:151.2.840.216641.1.72.3.15| 1.2.840.724992.1.13.104.2.7.2.7278 [id number] Erin Stephens RN [facility] 2023-05-26 03:53:55 8DY2T6mpyTiAvXV36OA8 PJBTrIqYJdJIOe 206+QHMGW4XoexURnr1fWwPqXccBi11444 -08-16T03:53:55 Notifed María in the lab of add on of BMP 06977-5Octvsgmzn department FfxeMO1843-45-32O07:54:23[facility] NoteTXT1.2.840.152012.1.13.104.2.7 .2.919267|[id number] for patient yown10365-7NfvuWWKFOIRVJT[address] 21CMYXTPTHTAREHQDUKXIJKD1674-21-17 T03:54:231.2.840.939312.1.72.3.15| 1.2.840.237036.1.13.104.2.7.2.7278 [id number] [facility] 2023-05-26 02:11:00 P8KtdRCey1jaB6Q6HcoZ e9hu2egbJGNMI9 6+oKO2iwT2EM2pzIHir4CWwmjSuqJS4023 -08-16T02:11:00 Patient came in with complaints of wheezing and SOB since 3-4 days now. [facility] just given a breathing treatment. 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 11281-4Pfrhxgixn department Triage xxxmXW5715-47-26F97:23:22[facility] Triage noteTXT1.2.840.069258.1.13.104.2.7 .2.099610|[id number] for patient dguo38433-7Ifyxsxcqe department Note[address] 86CIFDUHLYDEJHUELGDUFOFC1285-38-29 T02:23:221.2.840.630134.1.72.3.15| 1.2.840.329257.1.13.104.2.7.2.7278 [id number] [facility] 2023-05-26 02:10:00 PXCWbS2QHpGftA5JarBL FO2z9v9tSbXYAP oMM/DiNUSAJShMWA+THmtrXai6vMwW4146 -08-16T02:10:00 [facility] Emergency Department NotePatient Name: Anthony Aranda of : 1960 62 year old maleTreatment Room: NE6/TC6Zirccaj Record Number: [id number] Care Physician: PATIENT DOES NOT HAVE A PCPPatient Escorted by: Self [9]Mode of Arrival: Personal means [1]EMS Treatment Prior to ED 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 Pt was also seen at [facility] ago and was given an Albuterol inhalerHistory provided by: PatientLanguage nurse substance abuse used: No Shortness of BreathSeverity: ModerateOnset quality: [...] Eval:ED Events Date/Time Event User Comments 05/26/23 5962 Medical Screening Begins CROW MANN MD -- [...] Follow-up:Electronically signed by: Crow Mann MD05/26/23 0551 [id number] Emergency department HwfyLY2663-83-06U35:51:23[facility] Emergency department NoteTXT1.2.840.849907.1.13.104.2.7 .2.730153|[id number] for patient ktos77541-2Qpaxrjiub department NoteLNUT[address]TXTX[address] 89JGOBGWJEAXXWAULNGVMJHY2886-39-74 T05:51:231.2.840.775512.1.72.3.15| 1.2.840.894734.1.13.104.2.7.2.7278 [id number] [facility]
[2023-12-06 23:24] LABS: Absolute Lymphocytes (CBC) 4.6 K/uL (0.7-4.9); Hematocrit 40.8 % (39.6-49.0); Lymphocytes % 48.9 % (15.3-44.8); MCV 88.3 fL (80-100); MPV 7.8 fL (7.6-11.3); Platelets 374 thou/uL (152-406); RBC Red Blood Cell Count 4.62 M/uL (4.33-5.43)
[2023-12-06 23:25] LABS: Protime INR 0.99
[2023-12-06 23:37] LABS: ALT/SGPT 21 U/L (16-61); AST/SGOT 13 U/L (15-37); Albumin 3.9 g/dL (3.4-5.0); Alkaline Phosphatase 60 U/L (45-117); BUN Blood Urea Nitrogen 11 mg/dL (7-18); Bicarbonate 23 mEq/L (21-32); Bilirubin Direct 0.2 mg/dL (0-0.2); Bilirubin Indirect, Calculated 0.4 mg/dL (0.2-0.8); Bilirubin Total 0.6 mg/dL (0.2-1.0); Glomerular Filtration Rate 81 ml/min (=/>90); Glucose Level 147 mg/dL (74-106); Potassium 3.4 mEq/L (3.5-5.1); Protein, Total 7.4 g/dL (6.4-8.2); Sodium Level 137 mEq/L (136-145)
[2023-12-07 01:15] LABS: Specific Gravity 1.009 (1.005-1.030); Urine Bilirubin NEGATIVE (Negative); Urine Blood Negative (Negative); Urine Clarity Clear (Clear); Urine Color Colorless (Yellow); Urine Glucose NEGATIVE (Negative); Urine Protein NEGATIVE (Negative); Urine Urobilinogen Normal (Normal)
[2023-12-07 01:24] LABS: Barbiturates NEGATIVE (NEGATIVE); Benzodiazepines NEGATIVE (NEGATIVE); Cocaine NEGATIVE (NEGATIVE); METHAMPHETAM POSITIVE (NEGATIVE); Methadone NEGATIVE (NEGATIVE); Opiates NEGATIVE (NEGATIVE); Phencyclidine NEGATIVE (NEGATIVE); THC Cannibis NEGATIVE (NEGATIVE)
--- NOTE | 2023-12-07 01:42 | ER ---
Nurse's Notes [facility] Name: Himanshu Banuelos Age: 63 yrs Sex: Male : 1960 Arrival Date: 12/06/2023 Time: 22:04 Bed 14 Private MD: Diagnosis: Suicidal ideations;Hypertensive heart disease without heart failure Presentation: 12/06 22:04 Chief complaint: Patient states: PT STATES HIS LIFE SUCKS SO HE POKED HIMSELF WITH A jj7 NEEDLE IN HIS LEFT ARM. EMS states: PER EMS PT STATES HE WANTED TO KILL HIMSELF SO HE POKED HIMSELF WITH A NEEDLE IN HIS LEFT ARM. TOOK 2 OXYCODONE AND 3 ADDERALL . Coronavirus screen: At this time, the client does not indicate any symptoms associated with coronavirus-19. Ebola Screen: No symptoms or risks identified at this time. Initial Sepsis Screen: Does the patient meet any 2 criteria? HR > 90 bpm. Yes Does the patient have a suspected source of infection? No. Patient's initial sepsis screen is negative. Risk Assessment: Do you want to hurt yourself or someone else? Patient reports desire/thoughts of hurting themselves or someone else. Provider notified. Onset of symptoms was December 06, 2023. 22:04 Method Of Arrival: EMS: [facility] j 22:04 Acuity: JOSE DE JESUS 2 jj7 Triage Assessment: 22:04 General: Appears in no apparent distress. comfortable, Behavior is agitated, anxious. jj7 Pain: Denies pain. Neuro: No deficits noted. Derm: Skin is intact, Reports. Historical: - Allergies: 22:22 No Known Allergies; jj7 - PMHx: 22:22 Asthma; Anxiety; jj7 - PSHx: 22:04 None; jj7 - Immunization history:: Adult Immunizations not up to date, Client reports having NOT received the Covid vaccine. Flu vaccine is not up to date. - Social history:: Smoking status: Patient reports the use of cigarette tobacco products, smokes one pack cigarettes per day. Patient uses alcohol, occasionally. Patient/guardian denies using street drugs. Screenin:04 [facility] ED Fall Risk Assessment (Adult) History of falling in the last 3 months, jj7 including since admission No falls in past 3 months (0 pts) Confusion or Disorientation No (0 pts) Intoxicated or Sedated No (0 pts) Impaired Gait No (0 pts). Abuse screen: Denies threats or abuse. Nutritional screening: No deficits noted. Tuberculosis screening: No symptoms or risk factors identified. Assessment: 22:04 Reassessment: SEE TRIAGE ASSESSMENT. jj7 23:45 Reassessment: PT'S BELONGINGS. PANTS,SHIRT,BELT,SHOES, CELL PHONE PUT IN BAG AND GIVEN jj7 TO SON. 12/07 00:40 Reassessment: Patient is alert, oriented x 3, equal unlabored respirations, skin jj7 warm/dry/pink. SON STILL AT BEDSIDE. 02:43 Reassessment: Patient is alert, oriented x 3, equal unlabored respirations, skin jj7 warm/dry/pink. 03:35 Reassessment: INFORMED MD OF PT'S ELEVATED BP. MD AWARE AND DOES NOT WANT TO TREAT WITH jj7 ADDITIONAL MEDS DO TO HX. 04:18 Reassessment: [facility] ON PHONE DOING TELECONFERENCE WITH PT. jj7 04:30 Reassessment: Patient is alert, oriented x 3, equal unlabored respirations, skin jj7 warm/dry/pink. 06:30 Reassessment: PT SLEEPING. NO DISTRESS NOTED. jj7 07:05 Reassessment: Himanshu Robbins - [phone]. ld1 09:10 Reassessment: Patient appears in no apparent distress at this time. Patient is alert, nj1 oriented x 3, equal unlabored respirations, skin warm/dry/pink. 11:20 Reassessment: Patient appears in no apparent distress at this time. Patient is alert, nj1 oriented x 3, equal unlabored respirations, skin warm/dry/pink. 13:00 Reassessment: Patient appears in no apparent distress at this time. Patient is alert, nj1 oriented x 3, equal unlabored respirations, skin warm/dry/pink. 14:32 Reassessment: [place] behavioral nurse on the phone "Jaren". Questions answered, they michi1 will let us know if accepted by calling back. 15:00 Reassessment: Patient appears in no apparent distress at this time. Patient is alert, nj1 oriented x 3, equal unlabored respirations, skin warm/dry/pink. 15:30 General: [facility] no trucks available at this time. [facility] ETA 45 min. as6 16:30 Reassessment: Patient appears in no apparent distress at this time. Patient is alert, nj1 oriented x 3, equal unlabored respirations, skin warm/dry/pink. [facility] here to transport patient. Report given to Zbigniew KRISHNAB. Patients belongings taken earlier by son. Psych: 12/06 22:04 [place] Suicide Severity Screening: In the past month, have you wished you were jj7 or wished you could go to sleep and not wake up? Patient responds "No." "In the past month, have you actually had any thoughts of killing yourself?" Patient responds "yes." Based off the client's response additional [place] suicide severity screening questions to be further documented on paper forms. "In your lifetime, have you ever done anything, started to do anything, or prepared to do anything to end your life?" Patient responds "no.". Subjective: Patient's mood is irritable, hopeless. Objective: Patient is irritable, using poor eye contact. Pt denies substance abuse. 22:04 Interventions: Removed personal items and placed in bag. Safety Checks: Personal items jj7 have been removed. Door is open. 22:30 Safety Checks: Visitors are present. SON AT BEDSIDE. 7 12/07 16:30 Commitment: Patient will be a voluntary commitment. nj1 Vital Signs: 12/06 22:04 BP 184 / 105; Pulse 115; Resp 18; Temp 98.7; Pulse Ox 100% ; Weight 81.65 kg; Height 5 [facility] ft[address] 11 in. ; Pain 0/10; 23:00 BP 167 / 97; Pulse 103; Resp 18; Pulse Ox 100% ; j7 23:45 BP 183 / 111; Pulse 109; Resp 17; Pulse Ox 98% ; 7 12/07 01:00 BP 158 / 106; Pulse 98; Resp 17; Pulse Ox 100% ; j7 03:00 BP 164 / 96; Pulse 92; Resp 13; Pulse Ox 99% ; j7 05:00 BP 142 / 102; Pulse 94; Resp 14; Pulse Ox 98% ; j7 06:43 BP 155 / 101; Pulse 86; Resp 17; Pulse Ox 99% ; jj7 07:13 BP 153 / 98; Pulse 89; Resp 14; Pulse Ox 97% on R/A; ld1 10:45 BP 154 / 98; Pulse 89; Resp 18; Pulse Ox 96% on R/A; em1 12:54 BP 143 / 99; Pulse 97; Resp 16; Pulse Ox 97% on R/A; Pain 6/10; em1 14:37 Temp 98.3(O); nj1 16:30 BP 140 / 95; Pulse 92; Resp 18; Pulse Ox 98% on R/A; nj1 12/06 22:04 Body Mass Index 25.10 (81.65 kg, 180.34 cm) jj7 12/06 22:04 Pain Scale: Adult jj7 12:54 Pain Scale: Adult em1 ED Course: 12/06 22:04 Arm band placed on right wrist. Patient placed in an exam room, on a stretcher. jj7 22:04 Patient has correct armband on for positive identification. Call light in reach. jj7 22:04 Inserted saline lock: 20 gauge in right forearm, using aseptic technique. Blood jj7 collected. 22:14 Patient arrived in ED. jj7 22:14 Jazzy Lamar RN is Primary Nurse. jj7 22:16 Harry Box PA is PHCP. cp 22:16 Broderick Murphy MD is Attending Physician. cp 22:22 Triage completed. jj7 22:30 Safety Checks: Personal items have been removed. The door is open or patient has been jj7 placed in a hallway bed/chair. A family member and/or friend is present and encouraged to stay. Sitter present at this time. 12/07 01:03 called [place] [facility] spoke with sahra. vk 01:40 sent documents to [place] for patient via fax. vk 01:43 called [facility] spoke with ana, to initiate transfer. vk 03:30 faxed docments to to [facility] , pt was able to do a face to face interview with [facility] hannah. 08:00 Diet tray given. PO fluids given. em1 08:55 Primary Nurse role handed off by Jazzy Lamar RN bd 11:20 Provided Education on: medication administered.. nj1 11:43 Diet tray given. PO fluids given. em1 14:15 refxed chart to [facility]. bd 15:26 pt accepted in transfer to [facility] by dr Luna. bd 15:54 IV discontinued, intact, bleeding controlled, No redness/swelling at site. Pressure em1 dressing applied. 15:54 IV discontinued, intact, bleeding controlled. nj1 16:30 No provider procedures requiring assistance completed. nj1 Administered Medications: 12/06 23:47 Drug: hydrALAZINE IVP 10 mg IVP once Route: IVP; Site: right forearm; jj7 12/07 00:20 Follow up: Response: Blood pressure is unchanged jj7 01:10 Drug: amLODIPine PO 10 mg PO once Route: PO; jj7 02:44 Follow up: Response: Blood pressure is lowered jj7 01:10 Drug: NS 0.9% IV 1000 ml IV at 1 bolus Per protocol; 1000 mL bolus Route: IV; Rate: 1 jj7 bolus; Site: right forearm; 02:19 Follow up: IV Status: Completed infusion jj7 03:52 Drug: Acetaminophen PO 1000 mg PO once Route: PO; jj7 05:29 Follow up: Response: Marked relief of symptoms jj7 11:22 Drug: Diazepam PO 2 mg PO once Route: PO; nj1 12:00 Follow up: Response: No adverse reaction nj1 14:32 Drug: Ativan IVP 0.5 mg IVP once Route: IVP; Site: right forearm; nj1 15:00 Follow up: Response: No adverse reaction nj1 Medication: 12/06 22:04 VIS not applicable for this client. jj7 Outcome: 12/07 01:42 ER care complete, transfer ordered by . cp 16:30 Transferred by ground EMS to other acute care facility: [facility]. Transfer form nj1 completed. 16:30 Condition: stable nj1 16:30 Instructed on the need for transfer, 16:30 Patient left the ED. nj1 Signatures: Earline Stover Eric em1 Harry Box PA PA cp Adenike Murry, RN RN ld1 Donnie Cronin RN RN as6 Jazzy Lamar RN RN jj7 Herlinda Núñez RN RN nj1 Samantha Mchugh Corrections: (The following items were deleted from the chart) 06:46 12/06 22:04 Chief complaint: Patient states: PT STATES HIS LIFE SUCKS SO HE POKED jj7 HIMSELF WITH A NEEDLE IN HIS LEFT ARM. EMS states: PER EMS PT STATES HE WANTED TO KILL HIMSELF SO HE POKED HIMSELF WITH A NEEDLE IN HIS LEFT ARM. jj7 12/07 16:36 16:36 No provider procedures requiring assistance completed. nj1 nj1 16:38 11:00 Reassessment: Patient appears in no apparent distress at this time. Patient is nj1 alert, oriented x 3, equal unlabored respirations, skin warm/dry/pink. nj1 16:41 16:39 Patient left the ED. nj1 nj1 17:18 16:30 Reassessment: Patient appears in no apparent distress at this time. Patient is nj1 alert, oriented x 3, equal unlabored respirations, skin warm/dry/pink. [facility] here to transport patient. Report given to Zbigniew KRISHNAB. nj1
--- NOTE | 2023-12-07 01:42 | EDPHYS ---
Physician Documentation [facility] Name: Himanshu Banuelos Age: 63 yrs Sex: Male : 1960 Arrival Date: 12/06/2023 Time: 22:04 Bed 14 Private MD: ED Physician Broderick Murphy HPI: 12/06 22:30 This 63 yrs old Male presents to ER via EMS with complaints of Suicidal Ideation. cp 22:30 The patient presents to the emergency department with suicide ideation, and the patient cp has a plan, to overdose with medications. 22:30 Past psychiatric history: Prior diagnosis: anxiety. Associated signs and symptoms: cp Pertinent positives; substance abuse, Pertinent negatives: abdominal pain, chest pain, delusions, hallucinations. Historical: - Allergies: 22:22 No Known Allergies; jj7 - PMHx: 22:22 Asthma; Anxiety; jj7 - PSHx: 22:04 None; jj7 - Immunization history:: Adult Immunizations not up to date, Client reports having NOT received the Covid vaccine. Flu vaccine is not up to date. - Social history:: Smoking status: Patient reports the use of cigarette tobacco products, smokes one pack cigarettes per day. Patient uses alcohol, occasionally. Patient/guardian denies using street drugs. ROS: 22:35 Constitutional: Negative for body aches, chills, fever, poor PO intake, cp 22:35 Eyes: Negative for injury, pain, redness, and discharge, cp 22:35 Cardiovascular: Negative for chest pain, edema, palpitations, 22:35 Abdomen/GI: Negative for abdominal pain, vomiting, diarrhea, constipation, 22:35 Back: Negative for pain at rest, pain with movement, 22:35 Neuro: Negative for altered mental status, dizziness, headache, weakness, 22:35 Psych: Positive for suicidal ideation, 22:35 All other systems are negative, Exam: 22:12 ECG was reviewed by the Attending Physician. cp 22:40 Constitutional: The patient appears in no acute distress, alert, awake, cp non-diaphoretic, well developed, well nourished, anxious, 22:40 Head/Face: Normocephalic, atraumatic. cp 22:40 Eyes: Periorbital structures: appear normal, Conjunctiva: normal, Sclera: no appreciated abnormality, Lids and lashes: appear normal, bilaterally, 22:40 ENT: External ear(s): are unremarkable, Nose: is normal, Mouth: Lips: moist, Oral mucosa: pink and intact, moist, Posterior pharynx: Airway: no evidence of obstruction, patent, 22:40 Chest/axilla: Inspection: normal, 22:40 Cardiovascular: Rate: tachycardic, Rhythm: regular, Edema: is not appreciated, JVD: is not appreciated, 22:40 Respiratory: the patient does not display signs of respiratory distress, Respirations: normal, no use of accessory muscles, no retractions, labored breathing, is not present, Breath sounds: are clear throughout, no decreased breath sounds, no stridor, no wheezing, 22:40 Abdomen/GI: Inspection: abdomen appears normal, Palpation: abdomen is soft and non-tender, in all quadrants, 22:40 Neuro: Orientation: to person, place \T\ time. Mentation: able to follow commands, Motor: moves all fours, strength is normal, 22:40 Psych: Behavior/mood is cooperative, Affect is animated, Delusions/hallucinations are not present. Vital Signs: 22:04 BP 184 / 105; Pulse 115; Resp 18; Temp 98.7; Pulse Ox 100% ; Weight 81.65 kg; Height 5 jj7 ft. 11 in. ; Pain 0/10; 23:00 BP 167 / 97; Pulse 103; Resp 18; Pulse Ox 100% ; jj7 23:45 BP 183 / 111; Pulse 109; Resp 17; Pulse Ox 98% ; jj7 12/07 01:00 BP 158 / 106; Pulse 98; Resp 17; Pulse Ox 100% ; j7 03:00 BP 164 / 96; Pulse 92; Resp 13; Pulse Ox 99% ; j7 05:00 BP 142 / 102; Pulse 94; Resp 14; Pulse Ox 98% ; jj7 06:43 BP 155 / 101; Pulse 86; Resp 17; Pulse Ox 99% ; jj7 07:13 BP 153 / 98; Pulse 89; Resp 14; Pulse Ox 97% on R/A; ld1 10:45 BP 154 / 98; Pulse 89; Resp 18; Pulse Ox 96% on R/A; em1 12:54 BP 143 / 99; Pulse 97; Resp 16; Pulse Ox 97% on R/A; Pain 6/10; em1 14:37 Temp 98.3(O); nj1 16:30 BP 140 / 95; Pulse 92; Resp 18; Pulse Ox 98% on R/A; nj1 12/06 22:04 Body Mass Index 25.10 (81.65 kg, 180.34 cm) 7 12/06 22:04 Pain Scale: Adult jj7 12:54 Pain Scale: Adult em1 MDM: 12/06 22:16 Patient medically screened. 12/07 01:45 Data reviewed: vital signs, lab test result(s), EKG. I considered the following cp discharge prescriptions or medication management in the emergency department Medications were administered in the Emergency Department. See DEC. 12/06 22:26 Order name: Acetaminophen; Complete Time: 00: 12/06 21: Order name: Basic Metabolic Panel; Complete Time: 00: 12/07 00:28 Interpretation: Normal except: K 3.4; GLUC 147; GFR 81. 12/06 22:26 Order name: CBC with Diff; Complete Time: 00: 12/07 00:28 Interpretation: Normal except: DARLENE% 31.8; LYM% 48.9; EOSINOPHIL % 8.6; EOSA 0.8. 12/06 22:26 Order name: ETOH Level; Complete Time: 00: 12/06 21: Order name: Hepatic Function; Complete Time: 00: 12/06 22:26 Order name: PT-INR; Complete Time: 00: 12/06 22:26 Order name: Ptt, Activated; Complete Time: 00: 12/06 22:26 Order name: Salicylate; Complete Time: 00: 12/06 22:26 Order name: Urinalysis w/ reflexes; Complete Time: : 12/06 22:26 Order name: Urine Drug Screen; Complete Time: : 12/07 01:27 Interpretation: Reviewed. 12/06 21: Order name: EKG; Complete Time: : 12/06 21: Order name: EKG - Nurse/Tech; Complete Time: 22:30 12/06 22:26 Order name: IV Saline Lock; Complete Time: : 12/06 22: Order name: Labs collected and sent; Complete Time: 23:17 12/06 22:26 Order name: Suicide Screening (Jeffry); Complete Time: 23:37 cp EC/26 22:12 Rate is 116 beats/min. Rhythm is regular. CT interval is normal. QRS interval is cp normal. QT interval is normal. T waves are Inverted in lead aVR. Interpreted by me. Reviewed by me. Administered Medications: 23:47 Drug: hydrALAZINE IVP 10 mg IVP once Route: IVP; Site: right forearm; jj7 12/07 00:20 Follow up: Response: Blood pressure is unchanged jj7 01:10 Drug: amLODIPine PO 10 mg PO once Route: PO; jj7 02:44 Follow up: Response: Blood pressure is lowered jj7 01:10 Drug: NS 0.9% IV 1000 ml IV at 1 bolus Per protocol; 1000 mL bolus Route: IV; Rate: 1 jj7 bolus; Site: right forearm; 02:19 Follow up: IV Status: Completed infusion jj7 03:52 Drug: Acetaminophen PO 1000 mg PO once Route: PO; jj7 05:29 Follow up: Response: Marked relief of symptoms jj7 11:22 Drug: Diazepam PO 2 mg PO once Route: PO; nj1 12:00 Follow up: Response: No adverse reaction nj1 14:32 Drug: Ativan IVP 0.5 mg IVP once Route: IVP; Site: right forearm; nj1 15:00 Follow up: Response: No adverse reaction nj1 Disposition Summary: 12/07/23 01:42 Transfer Ordered Notes: Transfer Location: [facility] Facility cp Reason: Higher level of care cp Condition: Stable cp Problem: new cp Symptoms: are unchanged cp Accepting Physician: Doctor(12/07/23 16:39) nj1 Diagnosis - Suicidal ideations cp - Hypertensive heart disease without heart failure cp Forms: - Medication Reconciliation Form cp - SBAR form cp Signatures: Dispatcher [employer] Louie Horowitz MD MD rn Page, Corey, PA PA cp Johnson, Juwairiyah, RN RN jj7 Herlinda Núñez RN RN nj1 Broderick Murphy MD MD ec2 Corrections: (The following items were deleted from the chart) 16:39 01:42 Doctor cp nj1
--- NOTE | 2023-12-07 15:47 | EKG ---
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
[2023-12-07 17:38] VITALS: BP 140/95; TEMP 98.3; O2SAT 98
== END ==
LOC: ER 22:04
DX: R45.851 Suicidal ideations (principal); I11.9 Hypertensive heart disease without heart failure; F41.9 Anxiety disorder, unspecified; F17.210 Nicotine dependence, cigarettes, uncomplicated
CPT/HCPCS: 93005; 85025; 80048; 36415; 85610; 80076; 85730; 81003; 80143; 80179; 82077; J0360

== ENCOUNTER 2024-03-29 14:34 | Emergency (ER) | payer OTHER ==
--- OUTSIDE RECORDS SUMMARY | 2024-03-29 14:38 | XMS REPORT | Continuity of Care Document ---
Author Name Unknown Address [address] [facility]. [address] [place] [address] [facility] thconnect Address [address] [place] [address] 1 [address] [place] [address] Care Team Providers Care Ground Worker Name Role Phone PCP, PATIENT DOES NOT HAVE A Primary Care Physic loida Unavailable YOSI SARMIENTO Attending Clinician UnavailYosi Smith Attending Clinician [phone] LISA GONSALES Attending Clinician Unavailable Lisa Gonsales NP Attending Clinician [phone] Doctor Unassigned, Hammon Attending Clinician U Crow Clark MD Attending Clinician [phone] CROW MUSA Attending Clinician Unavailable YOSI SARMIENTO Admitting Clinician UnavailLISA Estrada Admitting Clinician Unavailable CROW MUSA Admitting Clinician Unavailable Payers Payer Name Policy Type Policy Number Effective Date Expirati on Date Source [facility] [id number] 2023 00:00:00 [employer] [id number] 2022 00:00:00 Allergies, Adverse Reactions, Alerts Allergy Name Allergy Type Status Severity Reaction(s) Onset Date Inactive Date Treating Clinician Comments Source NO KNOWN ALLERGIE S Drug Class Active [facility] Social History Social Habit Start Date Stop Date Quantity Comments Source Gender identity [facility] Sexual orientation [facility] Sex Assigned At 1960 00:00:00 1960 00:00:00 [facility] Smoking Status Start Date Stop Date Source Tobacco smoking consumption unknown [facility] Medications Ordered Medication Name Filled Medication Name Start Date Stop Date Current Medication? Ordering Clinician Indication Dosage Frequency Signature (SIG) Comments Components Source levoFLOXaci n (LEVAQUIN) tablet 750 mg 12-24 09:00: 00 12-24 08:20 :00 No 750mg 750 mg, Oral, ONCE NOW, 1 dose, On 12/25/23 at 0400, RUPERTO
Re ason for Anti-Infec tive: Documented Infection< br>Documen ange Infection Site: Respirator y
Durat ion of Therapy: Once (ED) [facility] iopamidol (ISOVUE 370-500 mL) injection 70 mL 12-24 08:15: 00 12-24 08:15 :00 No [id number] 70mL 70 mL, Intravenou s, ONCE, 1 dose, On 12/25/23 at 0315, Routine [facility] aspirin chewable tablet 324 mg 12-24 05:45: 00 12-24 05:20 :00 No 324mg 324 mg, Oral, ONCE, 1 dose, On 12/25/23 at 0045, RUPERTO [facility] levoFLOXaci n 750 mg tablet 12-24 00:00: 00 12-29 04:59 :00 No [id number] 750mg Take 1 tablet by mouth in the morning for 4 days. [facility] doxycycline hyclate 100 mg capsule 07-10 00:00: 00 Yes [id number] 100mg Take 1 capsule by mouth in the morning and 1 capsule in the evening. [facility] ipratropium -albuteroL (DUONEB) 0.5 mg-3 mg(2.5 mg base)/3 mL nebulizer solution 3 mL 05-26 13:00: 00 Yes 3mL 3 mL, Inhalation , QID, First dose on Wed05/26/23 at 0800, Until Discontinu ed, Routine [facility] levoFLOXaci n (LEVAQUIN) tablet 750 mg 05-26 11:45: 00 05-26 10:49 :00 No 750mg 750 mg, Oral, ONCE NOW, 1 dose, On Wed05/26/23 at 0645, RUPERTO
Re ason for Anti-Infec tive: Documented Infection< br>Documen ange Infection Site: Respirator y
Durat ion of Therapy: Other (see Comments) [facility] iopamidol (ISOVUE 370-500 mL) injection 100 mL 05-26 11:00: 00 05-26 11:00 :00 No [id number] 100mL 100 mL, Intravenou s, ONCE, 1 dose, On Wed05/26/23 at 0600, Routine [facility] fluticasone propion-gurdeep meteroL (ADVAIR DISKUS) 250-50 mcg/dose inhalation disk 05-26 00:00: 00 Yes [id number] 1{puff} Inhale 1 Puff in the morning and 1 Puff in the evening. [facility] levoFLOXaci n (LEVAQUIN) 750 mg tablet 05-26 00:00: 00 07-10 00:00 :00 No [id number] 750mg Take 1 tablet by mouth every 24 (twenty-fo ur) hours. [facility] albuterol 90 mcg/actuati on inhaler 05-21 00:00: 00 Yes INHALE 1 PUFF BY MOUTH FOUR TIMES A DAY NEEDED FOR BREATHING [facility] Vital Signs Vital Name Observation Time Observation Value Comments S ource Oxygen saturation in Arterial blood by Pulse oximetry 2023-12-25 08:00:00 94 /min [facility] Systolic blood pressure 2023-12-25 08:00:00 135 mm[Hg] [facility] Diastolic blood pressure 2023-12-25 08:00:00 93 mm[Hg] [place] [facility] Heart rate 2023-12-25 08:00:00 88 /min [facility] Body temperature 2023-12-25 08:00:00 37.06 [facility] Respiratory rate 2023-12-25 08:00:00 19 /min [facility] Body height 2023-12-25 04:56:00 180.3 cm [facility] Body weight 2023-12-25 04:56:00 87.68 kg [facility] BMI 2023-12-25 04:56:00 26.96 kg/m2 [facility] Systolic blood pressure 2023-07-11 02:45:32 154 mm[Hg] [facility] Diastolic blood pressure 2023-07-11 02:45:32 87 mm[Hg] [facility] Heart rate 2023-07-11 02:45:32 66 /min [facility] Respiratory rate 2023-07-11 02:45:32 16 /min [facility] Oxygen saturation in Arterial blood by Pulse oximetry 2023-07-11 02:45:32 98 /min [facility] Body temperature 2023-07-11 00:34:00 36.72 [facility] Body height 2023-07-11 00:34:00 180.3 cm [facility] Body weight 2023-07-11 00:34:00 87.544 kg [facility] BMI 2023-07-11 00:34:00 26.92 kg/m2 [facility] Systolic blood pressure 2023-05-26 10:00:00 130 mm[Hg] [facility] Diastolic blood pressure 2023-05-26 10:00:00 90 mm[Hg] [facility] Heart rate 2023-05-26 10:00:00 91 /min [facility] Respiratory rate 2023-05-26 10:00:00 23 /min [facility] Oxygen saturation in Arterial blood by Pulse oximetry 2023-05-26 10:00:00 94 /min [facility] Body temperature 2023-05-26 07:11:00 37.33 Lawanda [facility] Body height 2023-05-26 07:11:00 180.3 cm [facility] Body weight 2023-05-26 07:11:00 85.276 kg [facility] BMI 2023-05-26 07:11:00 26.22 kg/m2 [facility] Procedures Procedure Date / Time Performed Performing Clinician Source EKG-12 LEAD 2023-12-25 08:15:25 Yosi Sarmiento [facility] TROPONIN I 2023-12-25 07:30:00 Yosi Sarmiento [facility] CT CHEST PULMONARY ANGIOGRAM 2023-12-25 07:16:32 Danika [facility] XR CHEST 1 VW 2023-12-25 05:43:31 Danika [facility] TROPONIN I 2023-12-25 05:06:00 Yosi [facility] COMP. METABOLIC PANEL (78947) 2023-12-25 05:06:00 Danika [facility] CBC WITH DIFF 2023-12-25 05:06:00 Danika [facility] NOTICE OF PRIVACY PRACTICES 2023-12-25 04:50:50 Doctor Unassigned, Hammon [facility] CONSENT/REFUSAL FOR DIAGNOSIS AND TREATMENT 2023-12-25 04:50:01 Doctor Unassigned, Hammon [facility] XR CHEST 1 VW 2023-07-11 01:11:47 Lisa Gonsales [facility] ASSIGNMENT OF BENEFITS 2023-07-11 00:51:27 Docto r Unassigned, Hammon [facility] CONSENT/REFUSAL FOR DIAGNOSIS AND TREATMENT 2023-07-11 00:23:57 Doctor Unassigned, Hammon [facility] TROPONIN I 2023-05-26 07:42:00 Crow Musa [facility] BASIC METABOLIC PANEL (NA, K, CL, CO2, GLUCOSE, BUN, CREATININE, CA) 2023-05-26 07:42:00 Crow Musa [facility] D-DIMER 2023-05-26 07:42:00 Crow Musa [facility] N-TERMINAL PRO-BNP 2023-05-26 07:42:00 Crow Musa [facility] COVID-19 (ID NOW RAPID TESTING) 2023-05-26 07:42:00 Crow Musa [facility] NOTICE OF PRIVACY PRACTICES 2023-05-26 07:11:11 Doctor Unassigned, Hammon [facility] CONSENT/REFUSAL FOR DIAGNOSIS AND TREATMENT 2023-05-26 07:10:40 Doctor Unassigned, Hammon [facility] Encounters Start Date/Time End Date/Time Encounter Type Admission Type Attending [facility] Facility Care Department Encounter ID Source 2023-12-24 23:52:00 2023-12-25 03:34:00 Emergency X RIDYOSI CASIANO [facility] E[facility] [id number] [facility] 2023-12-24 23:52:00 2023-12-25 03:34:00 Emergency [place], [facility] 1.2.840.114 350.1.13.10 4.2.7.2.686 [id number] [facility] 2023-11-01 10:59:22 2023-11-01 10:59:22 Outpatient [facility] [id number] [facility] Cas 2023-07-10 19:36:00 2023-07-10 22:01:00 Emergency X LISA GONSALES [facility] [id number] [facility] 2023-07-10 19:36:00 2023-07-10 22:01:00 Emergency Lisa Gonsales [facility] 1.2.840.114 350.1.13.10 4.2.7.2.686 [id number] [facility] 2023-07-10 00:00:00 2023-07-10 00:00:00 Orders Only Doctor Unassigned, Hammon [facility] 1.2.840.114 350.1.13.10 4.2.7.2.686 [id number] [facility] 2023-05-26 02:14:00 2023-05-26 06:07:00 Emergency Crow Musa [facility] 1.2.840.114 350.1.13.10 4.2.7.2.686 [id number] [id number] [facility] 2023-05-26 02:14:00 2023-05-26 06:07:00 Emergency X CROW MUSA [facility] E[facility] [id number] [facility] Results Test Description Test Time Test Comments Results Result Comments Source CT CHEST PULMONARY ANGIOGRAM 2023-12-10 07:42:01 Ordering physician: YOSI SARMIENTO Indication: Chest pain, short of breath Comparison: Chest radiograph dated 12/25/2023, CT of the chest dated05/26/2023 Technique: CTA of the chest was performed following the administration ofintravenous contrast material. Three-dimensional reformats were generatedfollowing completion of the exam. CT scan was performed according to ALARA(as low as reasonably achievable) policy. Findings: The visualized thyroid gland is within normal limits. There is nothoracic aortic aneurysm or dissection. The heart is normal in size withoutsignificant pericardial effusion. No filling defect is appreciated in thepulmonary arteries to the level of the proximal segmental arteries. Thereare small mediastinal lymph nodes, measuring up to 14 mm. No acute process is identified in the upper abdomen. There is focalconsolidation in the posterior right upper lobe (series 9, image 65). Bonewindows through the chest demonstrate no osseous destructive lesion. [facility] XR CHEST 1 VW 2023-12-10 6 06:18:16 ORDERING PROVIDER: YOSI SARMIENTO HISTORY: chest pain TECHNIQUE: Single frontal view of the chest. COMPARISON: 07/10/2023 FINDINGS:No consolidation, effusion, or pneumothorax identified. Heart and mediastinal structures unremarkable. ?No acute bonyabnormalities. [facility] HIV 1/2 4TH GEN, RFLX [id number] 03:41:40* Test Item Value Reference Range Interpretation Comme nts HIV 1/2 4TH GEN, RFLX CONF (test code = 3514) NON-REACTIVE NON-REACTIVE UNLESS OTHERWISE INDICATED, ALL TESTING PERFORMED AT [facility] [address] [place] [address] SECURITY FLEX UTILITY OFFICER: OLESYA HALLMAN M.D. [place] NUMBER [id number] [place]. [id number] RPR REFLEX TO T. PALLIDUM - [id number] 03:39:24* Test Item Value Reference Range Interpretation Comme nts RPR (test code = 97090) NON-REACTIVE NON-REACTIVE RPR TITER (test code = 3500) NOT INDIC. TITER NOT INDIC. BASIC METABOLIC PANEL (NA, K, CL, CO2, GLUCOSE, BUN, CREATININE, CA)2023-05-26 09:46:43* Test Item Value Reference Range Interpretation Comme nts NA (test code = 9978210141) 137 mmol/L 135-145 K (test code = 8443079614) 4.0 mmol/L 3.5-5.0 CL (test code = 3599980140) 102 mmol/L 98-108 CO2 TOTAL (test code = 7718394217) 26 mmol/L 23-31 AGAP (test code = 5154653269) 9 2-16 BUN (test code = 3784537142) 19 mg/dL 7-23 GLUCOSE (test code = 3273978223) 143 mg/dL 70-110 H CREATININE (test code = 9032035074) 0.87 mg/dL 0.60-1.25 CALCIUM (test code = 7098158774) 9.3 mg/dL 8.6-10.6 eGFR (test code = 4548849863) 89.5 mL/min/1.73m2 CYRIL (test code = CYRIL) [...] imaging tests). Lab Interpretation (test code = 62482-5) Abnormal [facility] [id number]-[id number] 08:30:03* Test Item Value Reference Range Interpretation Comme nts NT-proBNP (test code = 69576-0) <=125 Lab Interpretation (test cod e = 20822-8) Normal [facility] [id number] 08:17:34* Test Item Value Reference Range Interpretation Comme nts TROPONIN I (test code = 6757918668) 0.002 ng/mL <=0.034 CYRIL (test code = [...] of biotin. Lab Interpretation (test code = 04797-3) Normal [facility] Hospital[facility]-UZCMX3874-86-73 08:04:10* Test Item Value Reference Range Interpretation Comments D-DIMER (test code = 8515195111) 0.45 See_Comment H [Automated message] The system [...] a diagnosis. Lab Interpretation (test code = 89968-2) Abnormal [facility] Notes Date/Time Note Provider Source 2023-12-25 03:32:32 0400-50-89I96:32:32F ormatting of this note might be different from the original.Pt given printed and verbal discharge instructions regarding chest pain, pneumonia.Encouraged hydration,Prescriptions provided:LevaquinDiscussed ibuprofen and to take with food to [...] amb with steady gait, in no apparent distress. 95078-0Iwqwkmehw department LmuzFS4252-23-18V29:33:59[facility] NoteTXT1.2.840.509261.1.13.104.2.7 .2.960188|[id number] for patient wdgu69785-5BjqmZESLOWBHIFNUaduyybb d C-CDA narrative [id number] Stephens RNUT[id number] 63HRVMVEDHTRXWVQPKGSZJMX2260-30-01 T03:33:591.2.840.786192.1.72.3.15| 1.2.840.567674.1.13.104.2.7.2.7278 [id number] Erin Stephens RN [facility] 2023-12-24 23:52:12 5330-11-16N24:52:12F ormatting of this note might be different from the original.Patient arrived ambulatory to ED c/o chest tightness that started about 20 min ago. Bilateral arms and lower back is hurting. Currently smoking. 63956-9Txrheehkx department Triage ikfbTK5179-67-57E20:56:55[facility] Triage noteTXT1.2.840.125091.1.13.104.2.7 .2.416673|[id number] for patient wkyz94922-6Duxxxmcpo department NoteLNNARRATIVEFormatted C-CDA narrative [id number]-Xtjqb McInnis RNUT[id number] 27NAQWHVGTAYIQMVWAZANRJN6309-91-12 T23:56:551.2.840.063193.1.72.3.15| 1.2.840.336749.1.13.104.2.7.2.7278 [id number] Jesse Freedman RN [facility] 2023-05-26 06:06:02 7089-52-81R22:06:02F ormatting of this note might be different [...] with steady gait, in no apparent distress, [address]-8Cyyhukf[address] BerdJY4656-59-01F49:07:15[facility] NoteTXT1.2.840.628900.1.13.104.2.7 .2.457419|[id number] for patient uvrj76305-4YsgtVP285812719Lxywd A. Campbell RNUT[id number] 65VEZMIDJINUJXQFRZFXBQLJ0532-24-88 T06:07:151.2.840.316221.1.72.3.15| 1.2.840.883841.1.13.104.2.7.2.7278 [id number] Erin Stephens RN [facility] 2023-05-26 03:53:55 7485-10-59Z47:53:55F ormatting of this note might be different from the original.Notifed María [place] [address]-2Alw[address] WnxyAS3354-42-33K43:54:23[facility] NoteTXT1.2.840.858151.1.13.104.2.7 .2.306550|[id number] for patient heyo52757-0KouqAFHQHHJGHY[address]TXTX[address] 53BSWZRYWUQHBFTQWYGWEAVI9769-86-88 T03:54:231.2.840.330548.1.72.3.15| 1.2.840.332779.1.13.104.2.7.2.7278 [id number] [facility] 2023-05-26 02:11:00 8851-50-74T63:11:00F ormatting of this note might be different from the original.Patient came in with complaints of wheezing and SOB since 3-4 days now. [facility] just given a breathing treatment. 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 11370-8Gldrigjmk department Triage pdvmVT1591-53-76I07:23:22[facility] Triage noteTXT1.2.840.424355.1.13.104.2.7 .2.654859|[id number] for patient rjqp44664-9Okjmaovsa department [id number] 79AZOLGASHGKZWJFTSMINXVC5218-62-62 T02:23:221.2.840.713418.1.72.3.15| 1.2.840.197235.1.13.104.2.7.2.7278 [id number] [facility] 2023-05-26 02:10:00 8602-77-68Y67:10:00F ormatting of this note is different from the original.[facility] Emergency Department NotePatient Name: Anthony Aranda of : 1960 62 year old maleTreatment Room: UT6/KH6Uzqnkih Record Number: [id number] Care Physician: PATIENT DOES NOT HAVE A PCPPatient Escorted by: Self [9]Mode of Arrival: Personal means [1]EMS Treatment Prior to ED 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 Pt was also seen at the [facility] ago and was given an Albuterol inhalerHistory provided by: PatientLanguage painter barrel used: No Shortness of BreathSeverity: ModerateOnset quality: [...] Event User Comments 05/26/23225 Medical Screening Begins CROW MUSA MD -- 05/26/23225 First Provider Evaluation CROW MUSA MD -- No notes of EC Admission Criteria type on file.ED COURSEDiagnosis/Impression as of 05/26/23 05 SOB (shortness of breath) Pneumonia of left upper lobe due to infectious organism Procedures: ProceduresMDM:Medical Decision MakingAnthony Ferguson is a 62 year old male who [...] taking these medications No medications on file Follow-up: 96185-4Jitnadrwd Emergency department QpmhEV9747-76-60G43:51:23Physician Emergency department NoteTXT1.2.840.505030.1.13.104.2.7 .2.870605|[id number] for patient mleq65098-0Xdpzrjoqd department NoteLN[address] NvsjY[id number] 34LZXOLNJNCONGTSTRFNJIHQ6428-87-86 T05:51:231.2.840.036709.1.72.3.15| 1.2.840.168779.1.13.104.2.7.2.7278 [id number] [facility]
[2024-03-29] MEDS ORDERED: dexAMETHasone 10 MG/ML VIAL ONE (16:08)
[2024-03-29] MEDS ORDERED: ONDANSETRON 4 MG/2 ML VIAL ONE (16:08)
[2024-03-29] MEDS ORDERED: MORPHINE 4 MG/ML SYR ONE (16:09)
[2024-03-29] MEDS ORDERED: NA CHLORIDE 0.9% 1,000 ML ONE (16:09)
[2024-03-29] MEDS ORDERED: KETOROLAC 30 MG/ML INJ ONE (16:09)
--- NOTE | 2024-03-29 16:23 | RAD REPORT ---
EXAM DESCRIPTION: CT - Spine Lumbar Wo Con - 03/29/2024 3:50 pm CLINICAL HISTORY: Pain;Radiculopathy COMPARISON: No comparisons TECHNIQUE: Axial noncontrast CT imaging of the lumbar spine was performed with coronal and sagittal re-formatted images. All CT scans are performed using dose optimization technique as appropriate and may include automated exposure control or mA/KV adjustment according to patient size. FINDINGS: No acute lumbar spine fracture seen. No aggressive marrow pattern or malalignment. Paraspinal tissues are normal in thickness. No paraspinal abscess or hematoma seen. Intervertebral disc disease assessment is inherently limited by CT. Within these limitations, no high -grade canal stenosis suspected. Broad-based posterior disc bulge at L4-5 with endplate remodeling a nd facet arthropathy. Tvcn-ft-fjygazjs bilateral neural foraminal narrowing worse on the right. Mild effacement of the ventral CSF space at this level. IMPRESSION: No acute findings. Spondylotic changes at L4-5 contributing to cfda-jz-itjzpvbb bilateral neural foraminal narrowing. Pl ease onsider MRI follow-up for assessment of disc disease if clinically desired.
--- NOTE | 2024-03-29 16:30 | RAD REPORT ---
EXAM DESCRIPTION: RAD - Hip Left 2 View - 03/29/2024 3:54 pm CLINICAL HISTORY: PAIN COMPARISON: No comparisons TECHNIQUE: Left hip, AP and frogleg views of the left hip. FINDINGS: There is no fracture or dislocation. Spurring along the greater tuberosity on the left may reflect sequelae of trochanteric bursitis. No acute or destructive bony process seen. IMPRESSION: No acute fracture. Spurring along the greater tuberosity on the left may reflect sequela e of trochanteric bursitis.
--- NOTE | 2024-03-29 16:30 | RAD REPORT ---
EXAM DESCRIPTION: RAD - Pelvis - 03/29/2024 3:55 pm CLINICAL HISTORY: PAIN COMPARISON: Hip Left 2 View dated 03/29/2024 TECHNIQUE: Single AP view of the pelvis. FINDINGS: The visualized pelvic ring is intact. No suspicious osseous lesions. No significant degene rative changes or erosions of the hip joints. Other pelvic joints are unremarkable. Spurring along th e greater tuberosity on the left may reflect sequelae of trochanteric bursitis. Visualized aspects of the abdomen and soft tissues are unremarkable. IMPRESSION: No acute fracture. Spurring along the greater tuberosity on the left may reflect sequela e of trochanteric bursitis.
[2024-03-29 17:20] LABS: Absolute Basophils 0.1 K/uL (0-0.5); Absolute Lymphocytes (CBC) 2.7 K/uL (0.7-4.9); Absolute Monocytes 0.8 K/uL (0.1-1.3); Absolute Neutrophil 4.5 K/uL (1.8-8.0); Basophils % 1.3 % (0-1.3); Hemoglobin 14.5 g/dL (13.6-17.9); Lymphocytes % 29.9 % (15.3-44.8); MCH 29.7 pg (27.0-35.0); MCHC 33.8 g/dL (32.0-36.0); MCV 87.8 fL (80-100); MPV 7.6 fL (7.6-11.3); Neutrophils % 48.8 % (41.7-73.7); Nucleated Red Blood Cells % 0.1 % (0-0); Platelets 284 thou/uL (152-406); Red Cell Distribution Width 14.3 % (12.1-15.2); Specific Gravity 1.019 (1.005-1.030); Urine Bilirubin NEGATIVE (Negative); Urine Blood Negative (Negative); Urine Clarity Clear (Clear); Urine Color Light-Yellow (Yellow); Urine Glucose NEGATIVE (Negative); Urine Ketones NEGATIVE (Negative); Urine Microscopic Reflex YN NO UMIC; Urine Nitrite NEGATIVE (Negative); Urine Protein NEGATIVE (Negative); Urine Urobilinogen Normal (Normal)
--- NOTE | 2024-03-29 17:24 | RAD REPORT ---
EXAM DESCRIPTION: US - Extremity Venous Uni Ltd - 03/29/2024 4:49 pm CLINICAL HISTORY: Pain COMPARISON: None. TECHNIQUE: Real-time sonographic evaluation of the left lower extremity deep venous system was perfo rmed. FINDINGS: Normal compressibility, flow augmentation, phasic flow and spontaneous flow is identified in the left lower extremity deep venous system. No intraluminal filling defects seen. IMPRESSION: No DVT in the left lower extremity.
[2024-03-29 17:44] LABS: ALT/SGPT 21 U/L (16-61); Albumin/Globulin Ratio 1.1 (1.1-1.8); Alkaline Phosphatase 62 U/L (45-117); Anion Gap 6.9 mEq/L (5.0-15.0); BUN Blood Urea Nitrogen 10 mg/dL (7-18); Bicarbonate 30 mEq/L (21-32); Bilirubin Total 1.2 mg/dL (0.2-1.0); Globulin 3.7 g/dL (2.3-3.5); Glomerular Filtration Rate 95 ml/min (=/>90); Glucose Level 81 mg/dL (74-106); Potassium 3.9 mEq/L (3.5-5.1); Protein, Total 7.7 g/dL (6.4-8.2); Sodium Level 139 mEq/L (136-145)
[2024-03-29 17:47] LABS: AST/SGOT < 10 U/L (15-37)
--- NOTE | 2024-03-29 17:56 | ER ---
Nurse's Notes [facility] Name: Himanshu Banuelos Age: 63 yrs Sex: Male : 1960 Arrival Date: 03/29/2024 Time: 14:34 Bed 20 Private MD: Diagnosis: Unspecified symptoms and signs involving the musculoskeletal system;Pain in leg, unspecified;Pain in left hip;Other bursitis of hip, left hip Presentation: 03/29 14:40 Chief complaint: Patient states: left leg pain started yesterday, cant put pressure on ko1 it. No injuries sustained. Hurts mid thigh down to callf. Coronavirus screen: At this time, the client does not indicate any symptoms associated with coronavirus-19. Ebola Screen: No symptoms or risks identified at this time. Initial Sepsis Screen: Does the patient meet any 2 criteria? No. Patient's initial sepsis screen is negative. Does the patient have a suspected source of infection? No. Patient's initial sepsis screen is negative. Risk Assessment: Do you want to hurt yourself or someone else? Patient reports no desire to harm self or others. Onset of symptoms was March 29, 2024. 14:40 Method Of Arrival: Wheelchair ko1 14:40 Acuity: JOSE DE JESUS 3 ko1 Triage Assessment: 14:44 General: Appears in no apparent distress. Behavior is calm, cooperative, appropriate ko1 for age. Pain: Complains of pain in left leg. Historical: - Allergies: 14:44 No Known Allergies; ko1 - PMHx: 14:44 Anxiety; Asthma; Chronic obstructive lung disease; Sleep apnea; ko1 - PSHx: 14:44 None; ko1 - Immunization history:: Adult Immunizations up to date. - Infectious Disease History:: Denies. - Social history:: Smoking status: Patient reports the use of cigarette tobacco products, denies chronic smoking, but will smoke occasionally. - Family history:: not pertinent. Screenin:59 [facility] ED Fall Risk Assessment (Adult) History of falling in the last 3 months, bp including since admission No falls in past 3 months (0 pts) Confusion or Disorientation No (0 pts) Intoxicated or Sedated No (0 pts) Impaired Gait No (0 pts) Mobility Assist Device Used No (0 pt) Altered Elimination No (0 pt) Score/Fall Risk Level 0 - 2 = Low Risk. Abuse screen: Denies threats or abuse. Denies injuries from another. Nutritional screening: No deficits noted. Tuberculosis screening: No symptoms or risk factors identified. Vital Signs: 14:40 BP 124 / 79; Pulse 81; Resp 16; Temp 97; Pulse Ox 100% ; ko1 ED Course: 14:37 Patient arrived in ED. rg4 14:40 Harry Marrufo MD is Attending Physician. alisa 14:44 Triage completed. ko1 14:44 Arm band placed on right wrist. Patient placed in an exam room, on a stretcher, on ko1 pulse oximetry, Patient notified of wait time. 14:59 Joe Grace, RN is Primary Nurse. bp 15:52 CT Lumbar Spine Wo Con In Process Unspecified. EDMS 15:56 Hip Left 2 View XRAY In Process Unspecified. EDMS 15:56 Pelvis XRAY In Process Unspecified. EDMS 16:50 US Extremity Venous Unilateral Ltd In Process Unspecified. EDMS 16:59 Patient has correct armband on for positive identification. bp 16:59 Inserted saline lock: 22 gauge in right forearm, using aseptic technique. Blood bp collected. 17:55 Tommy Chavez MD is Referral Physician. [facility] 18:03 Provided Education on: fall risk. ld1 18:03 No provider procedures requiring assistance completed. IV discontinued, intact, ld1 bleeding controlled, No redness/swelling at site. Pressure dressing applied. Administered Medications: 16:58 Drug: NS 0.9% IV 1000 ml IV at 1 bolus Per protocol; 1000 mL bolus Route: IV; Rate: 1 bp bolus; Site: right forearm; 18:04 Follow up: IV Status: Completed infusion; IV Intake: 1000ml ld1 16:58 Drug: Ketorolac IVP 30 mg IVP once Route: IVP; Site: right forearm; bp 16:58 Drug: morphine IVP or IV 4 mg IVP once over 4 mins Route: IVP; Infused Over: 4 mins; bp Site: right forearm; 16:58 Drug: Ondansetron IVP 4 mg IVP once; over 2 minutes Route: IVP; Site: right forearm; bp 16:58 Drug: Decadron - Dexamethasone IVP 10 mg IVP once Route: IVP; Site: right forearm; bp Medication: 18:04 VIS not applicable for this client. ld1 Intake: 18:04 IV: 1000ml; Total: 1000ml. ld1 Outcome: 17:55 Discharge ordered by . alisa 18:03 Discharged to home ambulatory, ld1 18:03 Condition: good 18:03 Discharge instructions given to patient, Instructed on discharge instructions, follow up and referral plans. medication usage, Demonstrated understanding of instructions, follow-up care, medications, Prescriptions given X 4, 18:09 Patient left the ED. ld1 Signatures: Dispatcher [employer] EDKS Harry Marrufo MD MD cha Garcia, Rubi rg4 Joe Grace, RN RN Adenike Ham RN RN ld1 Flori Espinoza RN RN ko1
--- NOTE | 2024-03-29 17:56 | EDPHYS ---
Physician Documentation [facility] Name: Himanshu Banuelos Age: 63 yrs Sex: Male : 1960 Arrival Date: 03/29/2024 Time: 14:34 Bed 20 Private MD: KAREN Physician Harry Marrufo HPI: 03/29 16:05 This 63 yrs old Male presents to ER via Wheelchair with complaints of Leg alisa Pain. 16:05 The patient presents with decreased range of motion, pain, that is acute. The alisa complaints affect the lateral aspect of left thigh, medial aspect of left thigh and left quadriceps. Context: The problem was sustained at an unknown site, resulted from an unknown cause. Onset: The symptoms/episode began/occurred 1 day(s) ago. Modifying factors: The symptoms are alleviated by remaining still, the symptoms are aggravated by movement. Associated signs and symptoms: The patient has no apparent associated signs or symptoms. Treatment prior to arrival includes: no previous treatment. Severity of symptoms: At their worst the symptoms were mild, moderate, in the emergency department the symptoms are unchanged. The patient has not experienced similar symptoms in the past. Historical: - Allergies: 14:44 No Known Allergies; ko1 - PMHx: 14:44 Anxiety; Asthma; Chronic obstructive lung disease; Sleep apnea; ko1 - PSHx: 14:44 None; ko1 - Immunization history:: Adult Immunizations up to date. - Infectious Disease History:: Denies. - Social history:: Smoking status: Patient reports the use of cigarette tobacco products, denies chronic smoking, but will smoke occasionally. - Family history:: not pertinent. ROS: 16:05 Constitutional: Negative for fever, chills, and weight loss, Eyes: Negative for injury, alisa pain, redness, and discharge, ENT: Negative for injury, pain, and discharge, Neck: Negative for injury, pain, and swelling, Cardiovascular: Negative for chest pain, palpitations, and edema, Respiratory: Negative for shortness of breath, cough, wheezing, and pleuritic chest pain, Abdomen/GI: Negative for abdominal pain, nausea, vomiting, diarrhea, and constipation, Back: Negative for injury and pain, : Negative for injury, bleeding, discharge, and swelling, Skin: Negative for injury, rash, and discoloration, Neuro: Negative for headache, weakness, numbness, tingling, and seizure, Psych: Negative for depression, anxiety, suicide ideation, homicidal ideation, and hallucinations, Allergy/Immunology: Negative for hives, rash, and allergies, Endocrine: Negative for neck swelling, polydipsia, polyuria, polyphagia, and marked weight changes, 16:05 MS/extremity: Positive for decreased range of motion, pain, of the left hip, lateral aspect of left thigh and left hamstring, 16:05 Skin: Negative for rash, 16:05 Neuro: Positive for gait disturbance, Negative for weakness, Exam: 16:05 Constitutional: This is a well developed, well nourished patient who is awake, alert, alisa and in no acute distress. Head/Face: Normocephalic, atraumatic. Eyes: Pupils equal round and reactive to light, extra-ocular motions intact. Lids and lashes normal. Conjunctiva and sclera are non-icteric and not injected. Cornea within normal limits. Periorbital areas with no swelling, redness, or edema. ENT: Nares patent. No nasal discharge, no septal abnormalities noted. Tympanic membranes are normal and external auditory canals are clear. Oropharynx with no redness, swelling, or masses, exudates, or evidence of obstruction, uvula midline. Mucous membranes moist. Neck: Trachea midline, no thyromegaly or masses palpated, and no cervical lymphadenopathy. Supple, full range of motion without nuchal rigidity, or vertebral point tenderness. No Meningismus. Chest/axilla: Normal chest wall appearance and motion. Nontender with no deformity. No lesions are appreciated. Cardiovascular: Regular rate and rhythm with a normal S1 and S2. No gallops, murmurs, or rubs. Normal PMI, no JVD. No pulse deficits. Respiratory: Lungs have equal breath sounds bilaterally, clear to auscultation and percussion. No rales, rhonchi or wheezes noted. No increased work of breathing, no retractions or nasal flaring. Abdomen/GI: Soft, non-tender, with normal bowel sounds. No distension or tympany. No guarding or rebound. No evidence of tenderness throughout. Male : Normal genitalia with no discharge or lesions. Skin: Warm, dry with normal turgor. Normal color with no rashes, no lesions, and no evidence of cellulitis. Neuro: Awake and alert, GCS 15, oriented to person, place, time, and situation. Cranial nerves II-XII grossly intact. Motor strength 5/5 in all extremities. Sensory grossly intact. Cerebellar exam normal. Normal gait. Psych: Awake, alert, with orientation to person, place and time. Behavior, mood, and affect are within normal limits. 16:05 Back: pain, that is moderate, ROM is painful, with flexion, with extension, normal spinal alignment noted, CVA tenderness, is absent, vertebral tenderness, is not appreciated, muscle spasm, is not present, 16:05 Musculoskeletal/extremity: Extremities: grossly normal except: noted in the left hip, lateral aspect of left thigh and left upper thigh: decreased ROM, pain, tenderness, ROM: intact in all extremities, full active range of motion, full passive range of motion, limited active range of motion due to pain, limited passive range of motion due to pain, Circulation is intact in all extremities. Sensation intact. Compartment Syndrome exam of affected extremity: is normal. Weight bearing: able to fully bear weight, without difficulty, DVT Exam: negative Homans' sign noted on exam, no appreciated bluish discoloration, no erythema, no increased warmth, pain, tenderness, Vital Signs: 14:40 BP 124 / 79; Pulse 81; Resp 16; Temp 97; Pulse Ox 100% ; ko1 MDM: 14:40 Patient medically screened. alisa 16:14 Differential diagnosis: closed fracture, contusion, tendonitis. Data reviewed: vital alisa signs, nurses notes, lab test result(s), radiologic studies, CT scan, doppler, plain films. Consideration of Admission/Observation Escalation of care including admission/observation considered. I considered the following discharge prescriptions or medication management in the emergency department Medications were administered in the Emergency Department. See MAR. Independent interpretation of the following test(s) in the Emergency Department X-Ray: My interpretation is x ray, usg, ct. Test considered but Not performed: MRI: no mri. Historians other than the Patient: patient well informed. Care significantly affected by the following chronic conditions: Chronic Obstructive Pulmonary Disease, anxiety, asthma, apnea. Counseling: I had a detailed discussion with the patient and/or guardian regarding the historical points, exam findings, and any diagnostic results supporting the discharge/admit diagnosis, lab results, radiology results, the need for outpatient follow up, for definitive care, a family practitioner, a orthopedic surgeon. 06/19 15:36 Order name: CBC with Diff; Complete Time: 17:28 [facility] 03/29 15:36 Order name: Comprehensive Metabolic Panel; Complete Time: 17:55 [facility] 03/29 15:36 Order name: Urinalysis w/ reflexes; Complete Time: 17:23 [facility] 03/29 15:36 Order name: Hip Left 2 View XRAY; Complete Time: 16:33 [facility] 03/29 15:36 Order name: CT Lumbar Spine Wo Con; Complete Time: 16:28 [facility] 03/29 15:36 Order name: US Extremity Venous Unilateral Ltd; Complete Time: 17:28 [facility] 03/29 15:37 Order name: Pelvis XRAY; Complete Time: 16:33 [facility] Administered Medications: 16:58 Drug: NS 0.9% IV 1000 ml IV at 1 bolus Per protocol; 1000 mL bolus Route: IV; Rate: 1 bp bolus; Site: right forearm; 18:04 Follow up: IV Status: Completed infusion; IV Intake: 1000ml ld1 16:58 Drug: Ketorolac IVP 30 mg IVP once Route: IVP; Site: right forearm; bp 16:58 Drug: morphine IVP or IV 4 mg IVP once over 4 mins Route: IVP; Infused Over: 4 mins; bp Site: right forearm; 16:58 Drug: Ondansetron IVP 4 mg IVP once; over 2 minutes Route: IVP; Site: right forearm; bp 16:58 Drug: Decadron - Dexamethasone IVP 10 mg IVP once Route: IVP; Site: right forearm; bp Disposition Summary: 03/29/24 17:55 Discharge Ordered Notes: Location: Home alisa Problem: new alisa Symptoms: have improved alisa Condition: Stable alisa Diagnosis - Unspecified symptoms and signs involving the musculoskeletal system alisa - Pain in leg, unspecified alisa - Pain in left hip alisa - Other bursitis of hip, left hip alisa Followup: alisa - With: Private Physician - When: 2 - 3 days - Reason: Recheck today's complaints, Continuance of care, Re-evaluation by your physician Followup: alisa - With: Tommy Chavez MD - When: 2 - 3 days - Reason: Recheck today's complaints, Re-evaluation by your physician Discharge Instructions: - Discharge Summary Sheet alisa - Joint Pain alisa - Bursitis alisa - Hip Bursitis alisa - Musculoskeletal Pain alisa - Hip Pain alisa - Arthritis, [id number] [facility] - Joint Pain, [id number] [facility] Forms: - Medication Reconciliation Form [facility] - Antibiotic Education alisa - Prescription Opioid Use [facility] - Patient Portal Instructions [facility] - Leadership Thank You Letter [facility] Prescriptions: - acetaminophen-codeine 300-30 mg Oral tablet - take 2 tablet ORAL route every 6 hours; 20 tablet; Refills: 0, Product [facility] Selection Permitted - dexamethasone 4 mg Oral tablet - take 1 tablet ORAL route daily; 4 tablet; Refills: 0, Product Selection [facility] Permitted - Diclofenac Sodium 75 mg Oral tablet, delayed release (enteric coated) - take 1 tablet ORAL route 2 times per day; 20 tablet; Refills: 0, Product [facility] Selection Permitted - Cyclobenzaprine 5 mg Oral Tablet - take 1 tablet ORAL route 3 times per day As needed; 15 tablet; Refills: 0, [facility] Product Selection Permitted Signatures: Dispatcher [employer] Harry Joiner MD MD cha Peltier, Brian, RN RN bp Flori Espinoza RN RN ko1 Adenike Murry RN ld1
[2024-03-29 18:22] VITALS: BP 124/79; TEMP 97; O2SAT 100
== END 2024-03-29 18:09 | disposition home or self-care (01) ==
LOC: ER 14:34
DX: M71.552 Other bursitis, not elsewhere classified, left hip (principal); R29.91 Unspecified symptoms and signs involving the musculoskeletal system; M79.605 Pain in left leg
CPT/HCPCS: 85025; 36415; 81003; 80053; 72131; 72170; 73502; 93971; J1100; J2405; J7030

== ENCOUNTER 2024-05-20 11:09 | Emergency (ER) | payer OTHER ==
--- OUTSIDE RECORDS SUMMARY | 2024-05-20 11:16 | XMS REPORT | Continuity of Care Document ---
Author Name Unknown Address [address] 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 Role Phone PCP, PATIENT DOES NOT HAVE A Primary Care Physic loida Unavailable YOSI SARMIENTO Attending Clinician UnavailYosi Smith Attending Clinician [phone] LISA GONSALES Attending Clinician Unavailable Lisa Gonsales NP Attending Clinician [phone] Doctor Unassigned, Corwin Attending Clinician U Crow Clark MD Attending Clinician [phone] CROW MUSA Attending Clinician Unavailable YOSI SARMIENTO Admitting Clinician UnavailLISA Estrada Admitting Clinician Unavailable CROW MUSA Admitting Clinician Unavailable Payers Payer Name Policy Type Policy Number Effective Date Expirati on Date Source [facility] [id number] 2023 00:00:00 [employer] [id number] 2022 00:00:00 Allergies, Adverse Reactions, Alerts Allergy Name Allergy Type Status Severity Reaction(s) Onset Date Inactive Date Treating Clinician Comments Source NO KNOWN ALLERGIE S Drug Class Active [facility] Social History Social Habit Start Date Stop Date Quantity Comments Source Gender identity [facility] Sexual orientation U [facility] Sex Assigned At 1960 00:00:00 1960 00:00:00 [facility] Smoking Status Start Date Stop Date Source Tobacco smoking consumption unknown [facility] Medications Ordered Medication Name [...] y
Durat ion of Therapy: Once (ED) [facility] iopamidol (ISOVUE 370-500 mL) injection 70 mL 12-24 08:15: 00 12-24 08:15 :00 No [id number] 70mL 70 mL, Intravenou s, ONCE, 1 dose, On 12/25/23 at 0315, Routine [facility] aspirin chewable tablet 324 mg 12-24 05:45: 00 12-24 05:20 :00 No 324mg 324 mg, Oral, ONCE, 1 dose, On 12/25/23 at 0045, RUPERTO [facility] levoFLOXaci n 750 mg tablet 12-24 00:00: 00 12-29 04:59 :00 No [id number] 750mg Take 1 tablet by mouth in the morning for 4 days. [facility] doxycycline hyclate 100 mg capsule 07-10 00:00: 00 Yes [id number] 100mg Take 1 capsule by mouth in the morning and 1 capsule in the evening. [facility] ipratropium -albuteroL (DUONEB) 0.5 mg-3 mg(2.5 mg base)/3 mL nebulizer solution 3 mL 05-26 13:00: 00 Yes 3mL 3 mL, Inhalation , QID, First dose on Wed05/26/23 at 0800, Until Discontinu ed, Routine [facility] levoFLOXaci n (LEVAQUIN) tablet 750 mg 05-26 11:45: 00 05-26 10:49 :00 No 750mg 750 mg, Oral, ONCE NOW, 1 dose, On Wed05/26/23 at 0645, RUPERTO
Re ason for Anti-Infec tive: Documented Infection< br>Documen ange Infection Site: Respirator y
Durat ion of Therapy: Other (see Comments) [facility] iopamidol (ISOVUE 370-500 mL) injection 100 mL 05-26 11:00: 00 05-26 11:00 :00 No [id number] 100mL 100 mL, Intravenou s, ONCE, 1 dose, On Wed05/26/23 at 0600, Routine [facility] fluticasone propion-gurdeep meteroL (ADVAIR DISKUS) 250-50 mcg/dose inhalation disk 05-26 00:00: 00 Yes [id number] 1{puff} Inhale 1 Puff in the morning and 1 Puff in the evening. [facility] levoFLOXaci n (LEVAQUIN) 750 mg tablet 05-26 00:00: 00 07-10 00:00 :00 No [id number] 750mg Take 1 tablet by mouth every 24 (twenty-fo ur) hours. [facility] albuterol 90 mcg/actuati on inhaler 05-21 00:00: 00 Yes INHALE 1 PUFF BY MOUTH FOUR TIMES A DAY NEEDED FOR BREATHING [facility] Vital Signs Vital Name Observation Time Observation Value Comments S ource Oxygen saturation in Arterial blood by Pulse oximetry 2023-12-25 08:00:00 94 /min [facility] Systolic blood pressure 2023-12-25 08:00:00 135 mm[Hg] [facility] Diastolic blood pressure 2023-12-25 08:00:00 93 mm[Hg] [facility] Heart rate 2023-12-25 08:00:00 88 /min [facility] Body temperature 2023-12-25 08:00:00 37.06 Lawanda [facility] Respiratory rate 2023-12-25 08:00:00 19 /min [facility] Body height 2023-12-25 04:56:00 180.3 cm [facility] Body weight 2023-12-25 04:56:00 87.68 kg [facility] BMI 2023-12-25 04:56:00 26.96 kg/m2 [facility] Systolic blood pressure 2023-07-11 02:45:32 154 mm[Hg] [facility] Diastolic blood pressure 2023-07-11 02:45:32 87 mm[Hg] [facility] Heart rate 2023-07-11 02:45:32 66 /min [facility] 2023-07-11 02:45:32 16 /min [facility] Oxygen saturation in Arterial blood by Pulse oximetry 2023-07-11 02:45:32 98 /min [facility] Body temperature 2023-07-11 00:34:00 36.72 Lawanda [facility] Body height 2023-07-11 00:34:00 180.3 cm [facility] Body weight 2023-07-11 00:34:00 87.544 kg [facility] BMI 2023-07-11 00:34:00 26.92 kg/m2 [facility] Systolic blood pressure 2023-05-26 10:00:00 130 mm[Hg] [facility] Diastolic blood pressure 2023-05-26 10:00:00 90 mm[Hg] [facility] Heart rate 2023-05-26 10:00:00 91 /min [facility] Res[facility] rate 2023-05-26 10:00:00 23 /min [facility] Oxygen saturation in Arterial blood by Pulse oximetry 2023-05-26 10:00:00 94 /min [facility] Body temperature 2023-05-26 07:11:00 37.33 Lawanda [facility] Body height 2023-05-26 07:11:00 180.3 cm [facility] Body weight 2023-05-26 07:11:00 85.276 kg [facility] BMI 2023-05-26 07:11:00 26.22 kg/m2 [facility] Procedures Procedure Date / Time Performed Performing Clinician Source EKG-12 LEAD 2023-12-25 08:15:25 Yosi Sarmiento [facility] TROPONIN I 2023-12-25 07:30:00 Yosi Sarmiento [facility] CT CHEST PULMONARY ANGIOGRAM 2023-12-25 07:16:32 Danika [facility] XR CHEST 1 VW 2023-12-25 05:43:31 Danika [facility] TROPONIN I 2023-12-25 05:06:00 Yosi Sarmiento [facility] COMP. METABOLIC PANEL (54749) 2023-12-25 05:06:00 Danika [facility] CBC WITH DIFF 2023-12-25 05:06:00 Danika [facility] NOTICE OF PRIVACY PRACTICES 2023-12-25 04:50:50 Doctor Unassigned, Corwin [facility] CONSENT/REFUSAL FOR DIAGNOSIS AND TREATMENT 2023-12-25 04:50:01 Doctor Unassigned, Corwin [facility] XR CHEST 1 VW 2023-07-11 01:11:47 Lisa Gonsales [facility] ASSIGNMENT OF BENEFITS 2023-07-11 00:51:27 Docto r Unassigned, Corwin [facility] CONSENT/REFUSAL FOR DIAGNOSIS AND TREATMENT 2023-07-11 00:23:57 Doctor Unassigned, Corwin [facility] TROPONIN I 2023-05-26 07:42:00 Crow Musa [facility] BASIC METABOLIC PANEL (NA, K, CL, CO2, GLUCOSE, BUN, CREATININE, CA) 2023-05-26 07:42:00 Crow Musa [facility] D-DIMER 2023-05-26 07:42:00 Crow Musa [facility] N-TERMINAL PRO-BNP 2023-05-26 07:42:00 Crow Musa [facility] COVID-19 (ID NOW RAPID TESTING) 2023-05-26 07:42:00 Crow Musa [facility] NOTICE OF PRIVACY PRACTICES 2023-05-26 07:11:11 Doctor Unassigned, Corwin [facility] CONSENT/REFUSAL FOR DIAGNOSIS AND TREATMENT 2023-05-26 07:10:40 Doctor Unassigned, Corwin [facility] Encounters Start Date/Time End Date/Time Encounter Type Admission Type Attending [facility] Care Department Encounter ID Source 2023-12-24 23:52:00 2023-12-25 03:34:00 Emergency [facility] [id number] [facility] 2023-12-24 23:52:00 2023-12-25 03:34:00 Emergency [place], [facility] [id number] [facility] 2023-11-01 10:59:22 2023-11-01 10:59:22 Outpatient [facility] [id number] Mick Cerrato Cas 2023-07-10 19:36:00 2023-07-10 22:01:00 Emergency X DRU LISA [facility] ERT [id number] [facility] 2023-07-10 19:36:00 2023-07-10 22:01:00 Emergency Lisa Gonsales [facility] [id number] [facility] 2023-07-10 00:00:00 2023-07-10 00:00:00 Orders Only Doctor Unassigned, Corwin [facility] [id number] [facility] 2023-05-26 02:14:00 2023-05-26 06:07:00 Emergency Yar[place], [place] S [facility] [id number] [facility] 2023-05-26 02:14:00 2023-05-26 06:07:00 Emergency X CROW MUSA [facility] ERT [id number] [facility] Results Test Description Test Time Test [...] the chest demonstrate no osseous destructive lesion. [facility] XR CHEST 1 VW 2023-12-10 6 06:18:16 ORDERING PROVIDER: YOSI SARMIENTO HISTORY: chest pain TECHNIQUE: Single frontal view of the chest. COMPARISON: 07/10/2023 FINDINGS:No consolidation, effusion, or pneumothorax identified. Heart and mediastinal structures unremarkable. ?No acute bonyabnormalities. [facility] HIV 1/2 4TH GEN, RFLX [id number] 03:41:40* Test Item Value Reference Range Interpretation Comme nts HIV 1/2 4TH GEN, RFLX CONF (test code = 3514) NON-REACTIVE NON-REACTIVE UNLESS OTHERWISE INDICATED, ALL TESTING PERFORMED AT [facility] [address] [place] [address] ONCOLOGIST: OLESYA HALLMAN M.D. [place] NUMBER [id number] [place]. [id number] RPR REFLEX TO T. PALLIDUM - [id number] 03:39:24* Test Item Value Reference Range Interpretation Comme nts RPR (test code = 20133) NON-REACTIVE NON-REACTIVE RPR TITER (test code = 3500) NOT INDIC. TITER NOT INDIC. BASIC METABOLIC PANEL (NA, K, CL, CO2, GLUCOSE, BUN, CREATININE, CA)2023-05-26 09:46:43* Test Item Value Reference Range Interpretation Comme nts NA (test code = 7737182641) 137 mmol/L 135-145 K (test code = 3025289863) 4.0 mmol/L 3.5-5.0 CL (test code = 2880900164) 102 mmol/L 98-108 CO2 TOTAL (test code = 6959445904) 26 mmol/L 23-31 AGAP (test code = 4970099088) 9 2-16 BUN (test code = 3855235846) 19 mg/dL 7-23 GLUCOSE (test code = 0851692352) 143 mg/dL 70-110 H CREATININE (test code = 4063832146) 0.87 mg/dL 0.60-1.25 CALCIUM (test code = 2852252610) 9.3 mg/dL 8.6-10.6 eGFR (test code = 5046307797) 89.5 mL/min/1.73m2 CYRIL (test code = CYRIL) [...] imaging tests). Lab Interpretation (test code = 65728-9) Abnormal [facility] [id number] 08:30:03* Test Item Value Reference Range Interpretation Comme nts NT-proBNP (test code = 98148-3) <=125 Lab Interpretation (test cod e = 10479-9) Normal [facility] [id number] 08:17:34* Test Item Value Reference Range Interpretation Comme nts TROPONIN I (test code = 2348710471) 0.002 ng/mL <=0.034 CYRIL (test code = [...] of biotin. Lab Interpretation (test code = 24597-4) Normal [facility][id number] 08:04:10* Test Item Value Reference Range Interpretation Comments D-DIMER (test code = 4045634402) 0.45 See_Comment H [Automated message] The system [...] a diagnosis. Lab Interpretation (test code = 63824-4) Abnormal [facility] Notes Date/Time Note Provider Source 2023-12-25 03:32:32 Pt given printed and verbal discharge instructions regarding chest pain, pneumonia. Encouraged hydration, Prescriptions provided:Levaquin Discussed ibuprofen and to take with food to avoid GI distress. Discussed antibiotic therapy and to take until all completed unless adverse reaction occurs - if occurs, discontinue medication and follow up with pcp/seek medical attention Pt verbalized understanding of instructions, pt awake alert oriented, resp reg unlabored, skin w/d, color appropriate for race, moves all ext well,pt encouraged to follow up with pcp. Advised to seek medical attention for new/prolonged/worsening of symptoms, Symptoms improved No adverse reaction to meds given in ER noted upon discharge PIV d'cd, dressing to site, catheter in tact. Awake, alert oriented, resp reg unlabored, skin w/d, pt leaving amb with steady gait, in no apparent distress. Erin Stephens RN [facility] 2023-12-24 23:52:12 Patient arrived ambulatory to ED c/o chest tightness that started about 20 min ago. Bilateral arms and lower back is hurting. Currently smoking. EEPT Jesse Freedman RN [facility] 2023-05-26 06:06:02 Formatting of this n ote might be different from the original. Pt given printed and verbal discharge instructions regarding left upper lobe pneumonia, sob, encouraged hydration, Prescriptions provided: Levaquin, Advair disc Discussed ibuprofen and to take with food to avoid GI distress. Discussed antibiotic therapy and to take until all completed unless adverse reaction occurs - if occurs, discontinue medication and follow up with pcp/seek medical attention Pt verbalized understanding of instructions, pt awake alert oriented, resp reg unlabored, skin w/d, color appropriate for race, moves all ext well,pt encouraged to follow up with pcp. Advised to seek medical attention for new/prolonged/worsening of symptoms, Symptoms improved No adverse reaction to meds given in ER noted upon discharge PIV d'cd, dressing to site, catheter in tact. Awake, alert oriented, resp reg unlabored, skin w/d, pt leaving amb with steady gait, in no apparent distress, Erin Stephens RN [facility] 2023-05-26 03:53:55 Formatting of this n ote might be different from the original. Notifed María in the lab of add on of BMP [facility] 2023-05-26 02:11:00 Formatting of this n ote might be different from the original. Patient came in with complaints of wheezing and SOB since 3-4 days now. Patient states [facility] [place] and just given a breathing treatment. 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 [facility] 2023-05-26 02:10:00 Formatting of this n ote is different from the original. 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 treatment: Other (comment) ENGINE CLEANER treatment comments: Albuteral 4 puffs Travel and Exposure Screening: Symptoms Does patient have any of these symptoms?: (not recorded) Exposure Screening Has patient had contact with someone with a communicable disease in the last month?: (not recorded) Diseases exposed to:: (not recorded) Is Patient ?: (not recorded) Exposure Date: (not recorded) Chief Complaint: Chief Complaint Patient presents with WHEEZING Shortness of Breath History of Present Illness: Anthony Ferguson is a 62 year old male who presents to the ED for evaluation of URI symptoms X 5 days, Symptoms consist f cough wheezing SOB . No fever or chills. Cough is productive of light green phlegm. Pt smokes 1PPD. No sick contacts.Has myalgia and arthralgia. No prolonged immobilization. No calf pain/ Has used Albuterol inhaler. Home COVID test yesterday was negative. 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 Shortness of Breath Severity: Moderate Onset quality: Gradual Duration: 5 days Timing: Sporadic Chronicity: Recurrent Context: URI Context: not activity, not animal exposure, not emotional upset, not fumes, not known allergens, not occupational exposure, not pollens, not smoke exposure, not strong odors and not weather changes Relieved by: Inhaler Worsened by: Activity Ineffective treatments: None tried Associated symptoms: cough and wheezing Associated symptoms: no abdominal pain, no chest pain, no claudication, no diaphoresis, no ear pain, no fever and no headaches Risk factors: tobacco use Risk factors: no family hx of DVT, no hx of cancer, no hx of PE/DVT, no obesity, no prolonged immobilization and no recent surgery Past Medical History/Immunizations: Obstructive Sleep pnea Asthma Bronchitis Lung nodules "three black spots" Tetanus received in last 5 years: Unknown Allergies: No Known Allergies Past Social History: Substance & Sexual Activity No substance use or sexual activity history on file. Past Surgical History: No past surgical history on file. Review of Systems: Review of Systems Constitutional: Negative. [...] Negative. All other systems reviewed and are negative. Endocrine: Endocrine negative Physical Exam: ED Triage Vitals [05/26/23 0211] Weight 85.3 kg (188 lb) Actual or estimated Estimated by patient/family report Height 1.803 m (5' 11") BP (!) 146/90 Pulse 106 Resp 16 Temp 37.3 ?C (99.2 ?F) Temp source Oral SpO2 96 % Measured on Room air Physical Exam Vitals and nursing note reviewed. Constitutional: General: He [...] Heart sounds: Normal heart sounds. No murmur heard. Pulmonary: Effort: Pulmonary effort is normal. No respiratory [...] Content: Thought content normal. Judgment: Judgment normal. Radiology: CT CHEST PULMONARY ANGIOGRAM Preliminary Result PROCEDURE: CT [...] Report Dictated by Resident: Leandra Chan Lab Results: Lab Results D-DIMER - Abnormal Result Value Ref [...] Normal NT-proBNP <20 <=125 pg/mL Orders and Treatments: Orders Placed This Encounter Procedures XR CHEST 1 [...] levoFLOXacin (LEVAQUIN) 750 mg tablet First Provider Eval: ED Events Date/Time Event User Comments 05/26/23225 Medical Screening Begins CROW MUSA MD -- 05/26/23225 First Provider Evaluation CROW MUSA MD -- No notes of EC Admission Criteria type on file. ED COURSE Diagnosis/Impression as of 05/26/23550 SOB (shortness of breath) Pneumonia of left upper lobe due to infectious organism Procedures: Procedures MDM: Medical Decision Making Anthony Ferguson is a 62 year old male who presents to the ED with SOB, cough Problems Addressed: Pneumonia of left upper lobe due to infectious organism: acute illness or injury Details: Will initiate Abx treatment Counseled pt to follow-up post abx for further evaluation to document resolution of pneumonia SOB (shortness of breath): chronic illness or injury Amount and/or Complexity of Data Reviewed Labs: ordered. Decision-making details documented in ED Course. Radiology: ordered. Decision-making details documented in ED Course. Risk OTC drugs. Prescription drug management. Flowsheet Documentation: Scoring Tools: No data recorded Disposition/Condition: ED Disposition ED Disposition Disch - Home Condition Stable Comment -- Discharge Medications: Patient's Medications START taking these medications FLUTICASONE PROPION-SALMETEROL [...] these medications No medications on file Follow-up: Electronically signed by: Crow Musa MD 05/26/23550 [facility]
--- NOTE | 2024-05-20 11:57 | ER ---
Nurse's Notes [facility] Name: Himanshu Banuelos Age: 63 yrs Sex: Male : 1960 Arrival Date: 05/20/2024 Time: 11:09 Bed Waiting Private MD: Diagnosis: ED Course: 05/20 11:18 Patient arrived in ED. ra3 11:24 Jaye Mata PA-C is [facility]. sb4 11:24 Harry Marrufo MD is Attending Physician. sb4 11:48 Patient's name was called from ER lobby. No response. cm10 11:56 Patient's name was called from ER lobby. Unable to locate patient. Will disposition as cm10 left without being seen by a provider. Administered Medications: No medications were administered Outcome: 11:57 Patient left the ED. cm10 Signatures: Jaye Mata PA-C PA-C sb4 Chiqui Ford RN RN cm10 Luci Stewart ra3
== END 2024-05-20 11:57 | disposition left against medical advice (07) ==
LOC: ER 11:09
DX: Z02.9 Encounter for administrative examinations, unspecified (principal)

== ENCOUNTER 2024-07-14 04:06 | Emergency (ER) | payer OTHER ==
--- OUTSIDE RECORDS SUMMARY | 2024-07-14 04:09 | XMS REPORT | Clinical Summary ---
Author Name Unknown Organization [facility] Address [address] [place] [address] Care Team Providers Care Manager Star Name Role Phone Kong Bright MD Unavailable [phone] Sis Sauceda RN Unavailable Chemo Mcginnis Unavailable [phone] Ze Ortiz MD Primary Care Provider Encounters Date Type Department Care Team Description 06/02/2024 Telephone [facility] [address] Floor, [place] [address] Sis Sauceda, RN Nurse Navigation 06/02/2024 Documentation [facility] [address] Floor, [place] [address] Sis Sauceda, BRIELLE 05/24/2024 Documentation [facility] [address] Floor, [place] [address] Sis Sauceda, BRIELLE 05/22/2024 Telephone [facility] [address], [address] [place], [place] [id number] Sis Sauceda, RN New Patient after 07/15/2023 Social History Tobacco Use Types Packs/Day Years Used Date Smoking Tobacco: Never Assessed Sex and Gender Information Value Date Recorded Sex Assigned at Male 05/22/2024 2:35 PM CDT Gender Identity Male 05/22/2024 2:35 PM CDT Sexual Orientation Straight 05/22/2024 2: 35 PM CDT Job Start Date Occupation Industry Not on file Not on file Not on file Plan of Treatment Health Maintenance Due Date Last Done Comments COVID-19 Vaccine (2023-2 5 season) 2024 Influenza Vaccine (#1) 2024 Pneumococcal Vaccine: Pediat rics (0 to 5 Years) and At-Risk Patients (6 to 64 Years) Aged Out No longer eligi ble based on patient's age to complete this topic Care Teams Manager Star Relationship Specialty [place] [address] [place] [address] [address] [place], [place] [id number] [email or web address] PCP - External Referring Head and Neck Surgery 05/19/24 Chemo Mcginnis PCP - External Primary Care Provider 05/19/24 Ze Ortiz MD [address] [place] [address] [email or web address] PCP - General Ophthalmology 05/19/24 Sis Sauceda, RN [address] [place] [address] [email or web address] Intake Nurse Navigator Nursing 05/22/24 06/01/24
[2024-07-14] MEDS ORDERED: SMZ./TMP. 800/160 MG TABLET ONE (04:39)
[2024-07-14] MEDS ORDERED: CEFTRIAXONE 1000 MG/VIAL ONE (04:39)
[2024-07-14] MEDS ORDERED: LIDOCAINE 1% MPF 2 ML AMPULE ONE (04:39)
[2024-07-14] MEDS ORDERED: TRAMADOL HCL 50 MG TAB ONE (04:40)
[2024-07-14] MEDS ORDERED: KETOROLAC 30 MG/ML INJ ONE (04:40)
[2024-07-14] MEDS ORDERED: ONDANSETRON 4 MG (ODT) TAB ONE (04:40)
--- NOTE | 2024-07-14 04:52 | EDPHYS ---
Physician Documentation [facility] Name: Himanshu Banuelos Age: 63 yrs Sex: Male : 1960 Arrival Date: 07/14/2024 Time: 04:06 Bed 15 Private MD: ED Physician Isaiah Barrios HPI: 07/14 04:21 This 63 yrs old Male presents to ER via Unassigned with complaints of Arm sp4 Pain, Hand Swelling. 04:53 63-year-old male presents with acute redness swelling and pain left dorsal hand and sp4 left wrist also left forearm. Patient states possible insect bite starting at 6 PM yesterday. . Historical: - Allergies: 04:31 No Known Allergies; vc1 - Home Meds: 04:31 None [Active]; vc1 - PMHx: 04:31 Anxiety; Asthma; Chronic obstructive lung disease; Sleep Apnea; vc1 - PSHx: 04:31 skin cancer; nose (Sleep Apnea); vc1 - Immunization history:: Client reports having NOT received the Covid vaccine. - Infectious Disease History:: Denies. - Social history:: Smoking status: Patient reports the use of cigarette tobacco products, smokes one pack cigarettes per day. - Family history:: not pertinent. ROS: 04:53 Constitutional: Negative for fever, chills, and weight loss, positive for left wrist, sp4 left hand, left forearm pain redness swelling. 04:53 All other systems are negative, Exam: 04:53 Constitutional: This is a well developed, well nourished patient who is awake, alert, sp4 and in no acute distress. Head/Face: Normocephalic, atraumatic. Eyes: Pupils equal round and reactive to light, extra-ocular motions intact. Lids and lashes normal. Conjunctiva and sclera are not injected. Cornea within normal limits. Periorbital areas with no swelling, redness, or edema. ENT: Nares patent. No nasal discharge, no septal abnormalities noted. Tympanic membranes are normal and external auditory canals are clear. Oropharynx with no redness, swelling, or masses, exudates, or evidence of obstruction, uvula midline. Mucous membranes moist. Neck: Trachea midline, no thyromegaly or masses palpated, and no cervical lymphadenopathy. Supple, full range of motion without nuchal rigidity, or vertebral point tenderness. Chest/axilla: Normal chest wall appearance and motion. Nontender with no deformity. No lesions are appreciated. Cardiovascular: Regular rate and rhythm with a normal S1 and S2. No gallops, murmurs, or rubs. Normal PMI, no JVD. No pulse deficits. Respiratory: Lungs have equal breath sounds bilaterally, clear to auscultation and percussion. No rales, rhonchi or wheezes noted. No increased work of breathing, no retractions or nasal flaring. Abdomen/GI: Soft, with normal bowel sounds. No distension or tympany. No guarding or rebound. No evidence of tenderness throughout. Back: No spinal tenderness. No costovertebral tenderness. Skin: Warm, dry with normal turgor. Normal color with no rashes, no lesions, and no evidence of cellulitis. MS/ Extremity: Pulses equal, no cyanosis. Neurovascular intact. Full, normal range of motion. Neuro: Awake and alert, GCS 15, oriented to person, place, time, and situation. Cranial nerves II-XII grossly intact. Motor strength 5/5 in all extremities. Sensory grossly intact. Psych: Awake, alert, with orientation to person, place and time. Anxious appearing Vital Signs: 04:26 BP 121 / 72; Pulse 99; Resp 16; Temp 98.3; Pulse Ox 97% ; Weight 83.91 kg; Height 5 ft. vc1 11 in. ; Pain 10/10; 04:26 Body Mass Index 25.80 (83.91 kg, 180.34 cm) vc1 04:26 Pain Scale: Adult vc1 [place] Coma Score: 04:53 Eye Response: spontaneous(4). Motor Response: obeys commands(6). Verbal Response: sp4 oriented(5). Total: 15. MDM: 04:31 Patient medically screened. sp4 04:56 Differential diagnosis: dislocation, open fracture, abrasion, tendonitis. Data sp4 reviewed: vital signs, nurses notes. ED course: Was given appropriate medications in ER. Stable for discharge home.. . Administered Medications: 04:48 Drug: Rocephin (cefTRIAXone) IM 1 grams IM once Route: IM; Site: right vastus lateralis;cp4 04:59 Follow up: Response: No adverse reaction cp4 04:48 Drug: Trimethoprim-Sulfamethoxazole PO (160 mg-800 mg (DS) 1 tablet PO once Route: PO; cp4 04:59 Follow up: Response: No adverse reaction cp4 04:48 Drug: Ketorolac IM 60 mg IM once Route: IM; Site: left vastus lateralis; cp4 04:59 Follow up: Response: No adverse reaction cp4 04:48 Not Given (Patient drove himselff): [id number] mg PO once cp4 04:48 Drug: Ondansetron PO 4 mg PO once Route: PO; cp4 04:59 Follow up: Response: No adverse reaction cp4 Disposition Summary: 07/14/24 04:52 Discharge Ordered Notes: Location: Home sp4 Problem: new sp4 Symptoms: have improved sp4 Condition: Stable sp4 Diagnosis - Cellulitis of left upper limb sp4 - Acute cellulitis left hand and wrist sp4 Followup: sp4 - With: Private Physician - When: 7 - 10 days - Reason: Recheck today's complaints Discharge Instructions: - Discharge Summary Sheet sp4 - Cellulitis, Adult sp4 Forms: - Patient Portal Instructions sp4 Prescriptions: - Cephalexin 500 mg Oral Capsule - take 1 capsule ORAL route every 12 hours for 10 days; 20 capsule; Refills: 0, sp4 Product Selection Permitted - Ibuprofen 800 mg Oral Tablet - take 1 tablet ORAL route every 8 hours As needed take with food; 30 tablet; sp4 Refills: 0, Product Selection Permitted - Tramadol 50 mg Oral Tablet - take 1 tablet ORAL route every 8 hours as needed; 12 tablet; Refills: 0, sp4 Product Selection Permitted - Bactrim DS 800-160 mg Oral Tablet - take 1 tablet ORAL route every 12 hours for 10 days; 20 tablet; Refills: 0, sp4 Product Selection Permitted Signatures: Annie Carr RN RN vc1 Isaiah Barrios MD MD sp4 Jeanne Cunnignham cp4
--- NOTE | 2024-07-14 04:52 | ER ---
Nurse's Notes [facility] Name: Himanshu Banuelos Age: 63 yrs Sex: Male : 1960 Arrival Date: 07/14/2024 Time: 04:06 Bed 15 Private MD: Diagnosis: Cellulitis of left upper limb;Acute cellulitis left hand and wrist Presentation: 07/14 04:26 Chief complaint: Patient states: bug bite to left arm that is swelling and more and vc1 more painful. Coronavirus screen: Client denies travel out of the [place] in the last 14 days. At this time, the client does not indicate any symptoms associated with coronavirus-19. Ebola Screen: Patient negative for fever greater than or equal to 101.5 degrees Fahrenheit, and additional compatible Ebola Virus Disease symptoms Patient denies exposure to infectious person. Patient denies travel to an Ebola-affected area in the 21 days before illness onset. No symptoms or risks identified at this time. Initial Sepsis Screen: Does the patient meet any 2 criteria? No. Patient's initial sepsis screen is negative. Does the patient have a suspected source of infection? No. Patient's initial sepsis screen is negative. Risk Assessment: Do you want to hurt yourself or someone else? Patient reports no desire to harm self or others. Onset of symptoms was July 14, 2024. 04:26 Method Of Arrival: Ambulatory vc1 04:26 Acuity: JOSE DE JESUS 3 vc1 Triage Assessment: 04:31 General: Appears in no apparent distress. uncomfortable, Behavior is calm, cooperative, vc1 appropriate for age. Pain: Complains of pain in left arm. Neuro: Level of Consciousness is awake, alert, obeys commands, Oriented to person, place, time, situation, Appropriate for age. Cardiovascular: Capillary refill < 3 seconds Patient's skin is warm and dry. Respiratory: Airway is patent Respiratory effort is even, unlabored, Respiratory pattern is regular, symmetrical. Derm: Wound noted left arm Reports pain that is 10 out of 10 on a pain scale. Musculoskeletal: Swelling present in left arm. Historical: - Allergies: 04:31 No Known Allergies; vc1 - Home Meds: 04:31 None [Active]; vc1 - PMHx: 04:31 Anxiety; Asthma; Chronic obstructive lung disease; Sleep Apnea; vc1 - PSHx: 04:31 skin cancer; nose (Sleep Apnea); vc1 - Immunization history:: Client reports having NOT received the Covid vaccine. - Infectious Disease History:: Denies. - Social history:: Smoking status: Patient reports the use of cigarette tobacco products, smokes one pack cigarettes per day. - Family history:: not pertinent. Screenin:34 [facility] ED Fall Risk Assessment (Adult) History of falling in the last 3 months, cp4 including since admission No falls in past 3 months (0 pts) Confusion or Disorientation No (0 pts) Intoxicated or Sedated No (0 pts) Impaired Gait No (0 pts) Mobility Assist Device Used No (0 pt) Altered Elimination No (0 pt) Score/Fall Risk Level 0 - 2 = Low Risk Oriented to surroundings, Maintained a safe environment, Assessed \T\ reinforced patient's understanding of fall precautions, Hourly rounding (assess needs \T\ fall precautionary measures) done. Abuse screen: Denies threats or abuse. Nutritional screening: No deficits noted. Tuberculosis screening: No symptoms or risk factors identified. Assessment: 04:34 General: Appears in no apparent distress. comfortable, Behavior is calm, cooperative, cp4 appropriate for age. Pain: Complains of pain in left arm Pain currently is 10 out of 10 on a pain scale. Neuro: Level of Consciousness is awake, alert, obeys commands, Oriented to person, place, time, situation. Cardiovascular: Patient's skin is warm and dry. Respiratory: Airway is patent Respiratory effort is even, unlabored. GI: No signs and/or symptoms were reported involving the gastrointestinal system. : No signs and/or symptoms were reported regarding the genitourinary system. EENT: No signs and/or symptoms were reported regarding the EENT system. Derm: Reports pain that is 10 out of 10 on a pain scale. Musculoskeletal: No signs and/or symptoms reported regarding the musculoskeletal system. Vital Signs: 04:26 BP 121 / 72; Pulse 99; Resp 16; Temp 98.3; Pulse Ox 97% ; Weight 83.91 kg; Height 5 ft. vc1 11 in. ; Pain 10/10; 04:26 Body Mass Index 25.80 (83.91 kg, 180.34 cm) vc1 04:26 Pain Scale: Adult vc1 [place] Coma Score: 04:53 Eye Response: spontaneous(4). Motor Response: obeys commands(6). Verbal Response: sp4 oriented(5). Total: 15. ED Course: 04:12 Patient arrived in ED. gm2 04:21 Isaiah Barrios MD is Attending Physician. sp4 04:29 Triage completed. vc1 04:31 Arm band placed on right wrist. vc1 04:33 Jeanne Cunningham is Primary Nurse. cp4 04:34 Bed in low position. Call light in reach. Side rails up X 1. Provided Education on: cp4 insect bites. 04:34 No provider procedures requiring assistance completed. Patient did not have IV access cp4 during this emergency room visit. Administered Medications: 04:48 Drug: Rocephin (cefTRIAXone) IM 1 grams IM once Route: IM; Site: right vastus lateralis;cp4 04:59 Follow up: Response: No adverse reaction cp4 04:48 Drug: Trimethoprim-Sulfamethoxazole PO (160 mg-800 mg (DS) 1 tablet PO once Route: PO; cp4 04:59 Follow up: Response: No adverse reaction cp4 04:48 Drug: Ketorolac IM 60 mg IM once Route: IM; Site: left vastus lateralis; cp4 04:59 Follow up: Response: No adverse reaction cp4 04:48 Not Given (Patient drove himselff): [id number] mg PO once cp4 04:48 Drug: Ondansetron PO 4 mg PO once Route: PO; cp4 04:59 Follow up: Response: No adverse reaction cp4 Medication: 04:34 VIS not applicable for this client. cp4 Outcome: 04:52 Discharge ordered by . sp4 05:00 Discharged to home ambulatory, cp4 05:00 Condition: stable 05:00 Discharge instructions given to patient, Instructed on discharge instructions, follow up and referral plans. medication usage, Demonstrated understanding of instructions, follow-up care, medications, Prescriptions given X 4, 05:04 Patient left the ED. cp4 Signatures: Annie Carr RN RN vc1 Isaiah Barrios MD MD sp4 Jeanne Cunningham cp4 Valerie Castro gm2
[2024-07-14 12:44] VITALS: BP 121/72; TEMP 98.3; O2SAT 97
== END 2024-07-14 05:04 | disposition home or self-care (01) ==
LOC: ER 04:06
DX: L03.114 Cellulitis of left upper limb (principal)
CPT/HCPCS: 96372; 99284; Q0162; J0696